=== PATIENT | male | born 1965 | race Caucasian/White ===

== ENCOUNTER 2019-05-13 06:32 | Day surgery (SDC) | payer BC, OTHER ==
[2019-05-11 15:16] VITALS: BMI 30.8
[~2019-05-13 06:32] MED LIST: LACTATED RINGERS 1,000 ML IV SCH; SODIUM CHLORIDE 0.9% 1,000 ML IV SCH
[2019-05-13 07:04] VITALS: TEMP 98.1
[2019-05-13 07:04] LABS: Glucose,Whole Blood 165 mg/dL (75-99)
[2019-05-13] MEDS ORDERED: MIDAZOLAM 2 MG/2 ML VIAL ONE (07:20)
[2019-05-13] MEDS ORDERED: PROPOFOL 10 MG/ML 20 ML VIAL IV ONE (07:20)
--- NOTE | 2019-05-13 08:37 | P.PCN ---
Preoperative Diagnosis: Diagnosis Episode of wide complex tachycardia documented on ICD interrogation cycle length in the mid 300s Known ischemic cardiomyopathy severe LV dysfunction History of ventricular fibrillation status post ablation several years back Noninvasive program stimulation under conscious sedation Sinus cycle length 724 ms, MS interval 144 ms, QRS 134 ms and QT 375 ms Ventricular extra stimulation was performed at 2 [address] trains of double extrastimuli Ventricular tachycardia was induced, sustained monomorphic @ 400/230/200 ms The VT cycle length was 264 ms Right bundle branch block with negatively oriented QRS complexes in leads 1 and aVL, slightly upright in lead 3 and aVF Antitachycardia pacing was successful in the first round Thereafter defibrillation level testing was performed since patient has a RIATA lead on advisory Defibrillation level testing in the total configuration was performed. A 20 J shock was unsuccessful. A 30 J shock successfully defibrillated the patient is sinus rhythm DFT was repeated in the anodal polarity This time a 20 J shock was successful in different with the patient High-voltage impedance 91 ohms and charge time 4 seconds No post shock noise Detections were appropriate no dropouts Impression Inducible fast ventricular tachycardia with double extrastimuli at 400/270/200 ms Right bundle, negative QRS is in leads 1 and aVL This wide complex tachycardia was quite different from the clinical ventricular tachycardia which is a cycle length of about 3 and 30 ms High DFT in the cathodal polarity DFT at 20 J in the anodal polarity Plan continue maximal heart failure therapy Consider VT ablation if he has recurrence of VT Patient's and underlying left bundle branch block morphology with a QRS width of 136 ms Will follow from a heart failure standpoint
[2019-05-13 08:40] VITALS: RESP 16
[2019-05-13 09:06] VITALS: BP 111/59; PULSE 87
== END 2019-05-13 09:30 | disposition home or self-care (01) ==
LOC: CATHEP 06:32
PROVIDERS: ATTEND Internal Medicine Clinical Cardiac Electrophysiology
DX: Z45.02 Encounter for adjustment and management of automatic implantable cardiac defibrillator (principal); I25.5 Ischemic cardiomyopathy; I45.2 Bifascicular block; Z72.0 Tobacco use; I47.2 Ventricular tachycardia; I25.10 Atherosclerotic heart disease of native coronary artery without angina pectoris; I11.0 Hypertensive heart disease with heart failure; I50.9 Heart failure, unspecified; I25.2 Old myocardial infarction; E78.5 Hyperlipidemia, unspecified; J45.909 Unspecified asthma, uncomplicated; K21.9 Gastro-esophageal reflux disease without esophagitis; Z79.02 Long term (current) use of antithrombotics/antiplatelets; Z79.82 Long term (current) use of aspirin; Z79.4 Long term (current) use of insulin; Z79.899 Other long term (current) drug therapy; Z88.5 Allergy status to narcotic agent; Z88.0 Allergy status to penicillin; Z88.8 Allergy status to other drugs, medicaments and biological substances
CPT/HCPCS: 93642; J2250; J2704

== ENCOUNTER 2022-02-05 12:00 | Observation (INO) | payer BC, OTHER ==
[2022-02-05] MEDS ORDERED: SODIUM CHLORIDE 0.9% 1,000 ML IV ONE (12:19)
[2022-02-05] MEDS ORDERED: HYDROmorphone 1 MG/ML 1 ML SYRINGE ONE (16:19)
[2022-02-05] MEDS ORDERED: HYDROmorphone 1 MG/ML 1 ML SYRINGE IVP PRN (16:30)
[2022-02-05] MEDS ORDERED: HEPARIN SODIUM 1,000 UN/ML (10ML VL) ONE (16:56)
[2022-02-05] MEDS ORDERED: fentaNYL (PF) 50 MCG/ML 2 ML AMP ONE (16:56)
[2022-02-05] MEDS ORDERED: VERAPAMIL 2.5 MG/ML 2 ML AMP ONE (16:57)
[2022-02-05] MEDS: fentaNYL (PF) 50 MCG/ML VIAL IV ONE ×2 (17:02→17:10)
[2022-02-05] MEDS ORDERED: LIDOCAINE 1% INJ 10MG/ML (30 ML VIAL-PF) SQ ONE (17:02)
[2022-02-05] MEDS: MIDAZOLAM 2 MG/2 ML VIAL IV ONE ×2 (17:02→17:10)
[2022-02-05] MEDS: HEPARIN SODIUM 1,000 UN/ML (10ML VL) IV ONE ×4 (17:03→17:37)
[2022-02-05] MEDS ORDERED: VERAPAMIL SYRINGE (5 MG/10 ML) INTRAARTER ONE (17:04)
[2022-02-05] MEDS ORDERED: IOPAMIDOL-370 125ML BTL INJ ONE ×2 (17:51)
[2022-02-05] MEDS ORDERED: ATORVASTATIN 80 MG TAB PO STA (18:05)
[2022-02-05] MEDS ORDERED: NITROGLYCERIN SL TABS 0.4 MG TAB SUBLINGUAL PRN (18:05)
[2022-02-05] MEDS ORDERED: ALPRAZolam 0.5 MG TAB PO PRN (18:05)
[2022-02-05] MEDS ORDERED: ASPIRIN 325 MG TAB PO STA (18:05)
[2022-02-05] MEDS ORDERED: ALPRAZolam 0.25 MG TAB PO PRN (18:05)
[2022-02-05] MEDS: SODIUM CHLORIDE 0.9% 1,000 ML in EMPTY BAG 1 BAG IV SCH (18:24)
[2022-02-05 18:25] LABS: Glucose,Whole Blood 122 mg/dL (70-110)
[2022-02-05] MEDS ORDERED: PANTOPRAZOLE 40 MG TABLET PO SCH (21:00)
[2022-02-05] MEDS: SACUBITRIL/VALSARTAN 24 MG-26 MG TABLET PO SCH (21:48)
[2022-02-05] MEDS ORDERED: MELATONIN 5 MG TABLET PO SCH (22:30)
[2022-02-06] MEDS: SODIUM CHLORIDE 0.9% 1,000 ML in EMPTY BAG 1 BAG IV SCH (04:17)
[2022-02-06 05:55] VITALS: TEMP 97.5
[2022-02-06 07:00] LABS: Glucose,Whole Blood 137 mg/dL (70-110)
[2022-02-06] MEDS ORDERED: HEPARIN SODIUM,PORCINE 2,500 UNIT in SODIUM CHLORIDE 0.9% 250 ML IRRIGATION PRN (07:00)
[2022-02-06] MEDS ORDERED: HEPARIN SODIUM,PORCINE 10,000 UNIT in SODIUM CHLORIDE 0.9% 1,000 ML IRRIGATION PRN (07:00)
[2022-02-06] MEDS ORDERED: carvediloL 12.5 MG TAB PO SCH (07:30)
[2022-02-06] MEDS ORDERED: ATROPINE SULFATE 0.1 MG/ML 10ML SYRINGE IV PRN (07:56)
[2022-02-06] MEDS ORDERED: NITROGLYCERIN SL TABS 0.4 MG TAB SUBLINGUAL PRN (07:56)
[2022-02-06] MEDS ORDERED: MAG HYDROX/AL HYDROX/SIMETH 30 ML CUP PO PRN (07:56)
[2022-02-06] MEDS ORDERED: ZOLPIDEM 5 MG TAB PO PRN (07:56)
[2022-02-06] MEDS ORDERED: RX INFO: IV CONTRAST WAS GIVEN 1 EACH MISC MISCELLANE PRN (07:56)
[2022-02-06] MEDS ORDERED: SODIUM CHLORIDE 0.9% 1,000 ML in EMPTY BAG 1 BAG IV SCH (08:00)
--- NOTE | 2022-02-06 08:07 | P.PRCINT ---
Percutaneous Coronary Int. - Percutaneous Coronary Intervention Percutaneous Coronary Intervention: PROCEDURES PERFORMED: Left coronary angiography, PTCA instent stenosis of LAD with a 3.5 NC balloon, IVUS INDICATION: Vfib, obstructive CAD DATE OF PROCEDURE: 02/05/2022 HISTORY: Patient is a pleasant 56-year-old male with history CAD with previous PCI of the LAD as well as RCA as well as ischemic cardiomyopathy and DVT. Patient had previous LAD stenting and then had acute stent thrombosis requiring second stenting and has been on aspirin and Plavix since that time. He had an episode of V. fib treated with AICD and therefore coronary angiography was recommended and performed at [facility] which showed an obstructive in-stent LAD 80% stenosis. Therefore intervention was recommended. CONSENT:I have discussed the risks, benefits and alternative therapies for the above-mentioned procedure and for both sedation/analgesia as well as necessary blood product administration, if indicated, as they pertain to this patient. The patient has indicated understanding and acceptance of the risks and procedures discussed. PROCEDURE: After the risks, benefits and alternatives of the above mentioned procedure explained in detail with the patient, informed consent was obtained. Patient was taken to the catheterization lab and prepped and draped in usual fashion. A right radial sheath had already been placed. A 6-Irish EBU 3.5 guide was easily engage the left main. Heparin was given. A 0.014 BMW wire was advanced into the distal LAD. With the help of a Guideliner, IVUS was able to be performed which showed obstructive 80% stenosis of the LAD stent as well as diffuse heavily calcified or proximal as well as more distal 30-40% stenosis. Given previous 2 layers of stent and previous stent thrombosis and mechanism of action pain in-stent stenosis, decision was made to perform balloon angioplasty only. Initially balloon angioplasty was performed with a 3.0 x 12 mm noncompliant balloon and then with a 3.5 x 12 mm noncompliant balloon. Repeat IVUS showed good stent apposition with no dissection and 10% stenosis. The wire was pulled and final angiograms were performed. Preintervention there was 80% stenosis with ANGELINA 3 flow and postintervention there was 10% stenosis with ANGELINA 3 flow. The right radial sheath was removed and a TR band was placed with hemostasis achieved. The patient tolerated the procedure well. Patient was transported back to the post catheterization holding area in stable condition. Conscious Sedation: Patient was monitored under the direct supervision of sheila of eugeniaelf for conscious sedation using Versed and fentanyl for a total duration of 56 minutes HEMODYNAMICS: Ao: 137/78 SELECTIVE CORONARY ARTERIOGRAPHY: LEFT MAIN: The left main is a large caliber vessel which bifurcates into the LAD and circumflex. There is no significant stenosis. LEFT ANTERIOR DESCENDING CORONARY ARTERY: LAD is a large caliber vessel which wraps around to the apex. There is diffuse calcified proximal 20-30% stenosis, mid LAD stent with 80% in-stent stenosis, distal to the LAD stents diffuse 30- 40% stenosis. The diagonal 1 branch has a 90% stenosis however is smaller caliber. LEFT CIRCUMFLEX CORONARY ARTERY: Left circumflex is a moderate caliber vessel with mild luminal irregularities. RIGHT CORONARY ARTERY: The RCA was not imaged. See diagnostic report. Known to have patent RCA stent with mild 20-30% stenosis and ostial PLV 50% stenosis. FINAL IMPRESSION: 1. CAD as described above including 80% mid LAD in-stent stenosis, diagonal 1 90% stenosis, RCA 20-30% stenosis and ostial PLV 50% stenosis. 2. S/p PTCA instent stenosis of LAD with a 3.5 NC balloon PLAN: 1. Aggressive risk factor modification per most recent ACC/AHA guidelines. 2. Continue dual antiplatelets with aspirin and Plavix for 12 months. 3. Recommend medical therapy of diagonal 1 branch given his small caliber with previous stent thrombosis of the LAD where the diagonal ostium comes off.
[2022-02-06 08:08] VITALS: BP 138/94; PULSE 55; RESP 18
--- NOTE | 2022-02-06 08:10 | P.DS ---
Providers Date of admission: 02/05/22 12:13 Attending physician: Derick Graff DO Consults: 02/06/22 07:56 Consult Physician Routine Consulting Provider: [facility] Consult Reason/Comments: Post Interventional patient Do you want consulting provider notified?: Already Contacted Primary care physician: [facility] Course: Patient is a pleasant 56-year-old male with history of CAD as well as ischemic cardiomyopathy status post AICD. He had a V. fib episode terminated with AICD and therefore coronary angiography was recommended. Patient had diagnostic heart catheterization at [facility] which showed obstructive 80% mid LAD in-stent stenosis as well as diagonal 190% stenosis. Recommended for medical therapy of diagonal 1 branch given this was area of previous stent thrombosis and recommended for intervention of the mid LAD stent. He was transferred to [facility] and underwent balloon angioplasty of the mid LAD with good result. Patient seen and examined 02/06 without any chest pain or pressure and radial site with no hematoma and 2 out of 4 pulses. Patient stable for discharge home on 02/06 with outpatient follow-up with Dr. Vaughan in 1 [place]. Plan - Discharge Summary Discharge Rx Participant: No New Discharge Prescriptions: No Action Clopidogrel [Plavix] 75 mg PO DAILY Pantoprazole [Protonix] 40 mg PO HS sitaGLIPtin PHOS/metFORMIN HCL [Janumet 50-1,000 mg Tablet] 1 tab PO BID Insulin Glargine,Hum.rec.anlog [Toujeo Solostar] 45 units SQ DAILY carvediloL [Coreg*] 25 mg PO BID-W/MEALS Atorvastatin [Lipitor] 40 mg PO DAILY Aspirin 162.5 mg PO BID Sacubitril/Valsartan [Entresto 24 mg-26 mg Tablet] 1 tab PO BID Discharge Medication List Clopidogrel [Plavix] 75 mg PO DAILY 07/06/14 [History] Pantoprazole [Protonix] 40 mg PO HS 04/30/15 [History] Aspirin 162.5 mg PO BID 05/11/19 [History] Atorvastatin [Lipitor] 40 mg PO DAILY 05/11/19 [History] Insulin Glargine,Hum.rec.anlog [Toujeo Solostar] 45 units SQ DAILY 05/11/19 [History] Sacubitril/Valsartan [Entresto 24 mg-26 mg Tablet] 1 tab PO BID 05/11/19 [History] carvediloL [Coreg*] 25 mg PO BID-W/MEALS 05/11/19 [History] sitaGLIPtin PHOS/metFORMIN HCL [Janumet 50-1,000 mg Tablet] 1 tab PO BID 05/11/19 [History] Follow up Appointment(s)/Referral(s): Derik Vaughan MD [STAFF PHYSICIAN] - 1 Week
[2022-02-06] MEDS: SACUBITRIL/VALSARTAN 24 MG-26 MG TABLET PO SCH (08:31)
[2022-02-06] MEDS ORDERED: ASPIRIN 81 MG PO SCH (09:00)
[2022-02-06] MEDS ORDERED: INSULIN DETEMIR (LEVEMIR) 100 UNIT/ML SYR SQ SCH (09:00)
[2022-02-06] MEDS ORDERED: ATORVASTATIN 40 MG TAB PO SCH (09:00)
[2022-02-06] MEDS ORDERED: CLOPIDOGREL 75 MG TAB PO SCH (09:00)
== END 2022-02-06 09:30 | disposition home or self-care (01) ==
LOC: 6NMEDSUR 12:13
PROVIDERS: ADMIT Internal Medicine; ATTEND Internal Medicine
DX: T82.855A Stenosis of coronary artery stent, initial encounter (principal); I25.10 Atherosclerotic heart disease of native coronary artery without angina pectoris; I25.5 Ischemic cardiomyopathy; Z95.810 Presence of automatic (implantable) cardiac defibrillator; Y83.2 Surgical operation with anastomosis, bypass or graft as the cause of abnormal reaction of the patient, or of later complication, without mention of misadventure at the time of the procedure; Y71.1 Therapeutic (nonsurgical) and rehabilitative cardiovascular devices associated with adverse incidents
CPT/HCPCS: 96360; 96361 ×2; 92978; 92920; G0379; G0378 ×2; C1769 ×3; C1887 ×2; C1894; C1725 ×2; C1753; J2250; J2001; J1644; J1170; Q9967

== ENCOUNTER 2022-02-10 05:36 | Inpatient (IN) | payer BC, MEDICARE ==
[2022-02-10] MEDS ORDERED: SODIUM CHLORIDE 0.9% 1,000 ML IV STA (05:45)
--- NOTE | 2022-02-10 05:52 | ED ---
Arrhythmia/Palpitations HPI - General Stated Complaint: Arrhythmia Time Seen by Provider: 02/10/22 05:44 Source: RN notes reviewed, old records reviewed Limitations: no limitations - History of Present Illness Initial Comments: This is a 56-year-old male to the emergency department for evaluation patient presents today for dizziness discharge of his defibrillator. Patient states he did go to a friend's house last night for Halloween hanging out noted at those little more activity than for himself normal. Patient samantha did have defibrillator discharges he was going to the bathroom he did not pass out. No chest pain before did feel lightheaded and dizzy. Patient has had his May discharged before and he has had this placed for about 15 years. Patient does have severe cardiomyopathy ischemic MD Complaint: irregular heart beat (Arrhythmia, history of ventricular tachycardia) -: minutes(s) Context: occurred during exertion, awoke with symptoms Arrhythmia History: pacemaker (Patient's defibrillator did discharge) Associated Symptoms: chest pain, shortness of breath, anxiety, diaphoresis Treatments Prior to Arrival: beta-ravi (Patient does take a beta ravi at baseline) - Related Data Home Medications Medication Instructions Recorded Confirmed Clopidogrel [Plavix] 75 mg PO DAILY 07/06/14 02/10/22 Pantoprazole [Protonix] 40 mg PO HS 04/30/15 02/10/22 Aspirin 162.5 mg PO BID 05/11/19 02/10/22 Atorvastatin [Lipitor] 40 mg PO DAILY 05/11/19 02/10/22 Insulin Glargine,Hum.rec.anlog 45 units SQ DAILY 05/11/19 02/10/22 [Toutanner Murphy] Sacubitril/Valsartan [Entresto 24 1 tab PO BID 05/11/19 02/10/22 mg-26 mg Tablet] sitaGLIPtin PHOS/metFORMIN HCL 1 tab PO BID 05/11/19 02/10/22 [Janumet 50-1,000 mg Tablet] ALPRAZolam [Xanax] 0.5 mg PO HS 02/10/22 02/10/22 Furosemide [Lasix] 20 mg PO DAILY PRN 02/10/22 02/10/22 carvediloL 25 mg PO BID-W/MEALS 02/10/22 02/10/22 Allergies Allergy/AdvReac Type Severity Reaction Status Date / Time amoxicillin Allergy Anaphylaxis Verified 02/10/22 11:57 lisinopril Allergy Anaphylaxis Verified 02/10/22 11:57 Penicillins Allergy Anaphylaxis Verified 02/10/22 11:57 Review of Systems ROS Statement: Those systems with pertinent positive or pertinent negative responses have been documented in the HPI. ROS Other: All systems not noted in ROS Statement are negative. Past Medical History Past Medical History: Asthma, Coronary Artery Disease (CAD), Diabetes Mellitus, GERD/Reflux, GI Bleed, Hyperlipidemia, Hypertension, Myocardial Infarction ([place]) Additional Past Medical History / Comment(s): see Dr Vaughan's H&P,ASTHMA CHILD, [place] X2, CAD status post PCI 2 ischemic cardiopathy status post AICD, pt stated "esophageal stricture status post esophageal dilatation resulted from acid reflux and scar tissue" Last Myocardial Infarction Date:: 2007 History of Any Multi-Drug Resistant Organisms: None Reported Past Surgical History: AICD, Heart Catheterization With Stent, Orthopedic Surgery Additional Past Surgical History / Comment(s): STENT X6, KNEE ARTHROSCOPY/CARDIAC DEFIBRILLATOR INSERTED 2008-lt chest [facility] Past Anesthesia/Blood Transfusion Reactions: No Reported Reaction Additional Past Anesthesia/Blood Transfusion Reaction / Comment(s): no hx blood transfusion Date of Last Stent Placement:: 05-02-2015 Type of Cardiac Device: AICD Device Placement Date:: 2007 Past Psychological History: No Psychological Hx Reported Smoking Status: Never smoker Past Alcohol Use History: None Reported Additional Past Alcohol Use History / Comment(s): quit smoking 2013, started at age 17,<1 ppd Past Drug Use History: None Reported - Past Family History Mother Family Medical History: Coronary Artery Disease (CAD), Hyperlipidemia, Hypertension Father Family Medical History: COPD, Coronary Artery Disease (CAD) Brother(s) Family Medical History: No Reported History Sister(s) Family Medical History: No Reported History Daughter(s) Family Medical History: No Reported History Son(s) Family Medical History: No Reported History General Exam General appearance: alert, in no apparent distress, anxious Head exam: Present: atraumatic, normocephalic, normal inspection Eye exam: Present: normal appearance, PERRL, EOMI. Absent: scleral icterus, conjunctival injection, periorbital swelling ENT exam: Present: normal exam, mucous membranes moist Neck exam: Present: normal inspection. Absent: tenderness, meningismus, lymphadenopathy Respiratory exam: Present: normal lung sounds bilaterally. Absent: respiratory distress, wheezes, rales, rhonchi, stridor Cardiovascular Exam: Present: regular rate, normal rhythm, normal heart sounds. Absent: systolic murmur, diastolic murmur, rubs, gallop, clicks GI/Abdominal exam: Present: soft, normal bowel sounds. Absent: distended, tenderness, guarding, rebound, rigid Extremities exam: Present: normal inspection, full ROM, normal capillary refill. Absent: tenderness, pedal edema, joint swelling, calf tenderness Back exam: Present: normal inspection Neurological exam: Present: alert, oriented X3, CN II-XII intact Psychiatric exam: Present: normal affect, normal mood Skin exam: Present: warm, dry, intact, normal color. Absent: rash Course Vital Signs 02/10/22 02/10/22 02/10/22 05:51 06:16 06:46 Temperature 98.5 F Pulse Rate 88 86 81 Pulse Rate [ Filing Or Registry Clerk ] Respiratory 15 18 Rate Blood Pressure 155/106 156/97 151/88 O2 Sat by Pulse 98 99 Oximetry 02/10/22 06:48 Temperature Pulse Rate Pulse Rate [ 86 Filing Or Registry Clerk ] Respiratory Rate Blood Pressure O2 Sat by Pulse Oximetry - Reevaluation(s) Reevaluation #1: 02/10/22 Medical records reviewed Reevaluation #2: 02/10/22 No recurrent this charge here in the emergency department Reevaluation #3: 02/10/22 22:27 Patient informed of results including electrolyte abnormalities. Questions answered - Consultations Consultation #1: Spoke with [facility] for brandyn for admission EKG Findings - EKG Comments: EKG Findings:: EKG is sinus 83 WA 173 QRS 151 QTc 417 Medical Decision Making - Medical Decision Making 56 male for a bladder discharge likely ventricular tachycardia versus ventricular fibrillation. Patient did not pass out prior defibrillator firing. He did feel lightheaded and dizzy no chest pain shortness breath or diaphoresis. Patient had symptoms placement 2 days ago - Lab Data Result diagrams: 02/10/22 05:57 02/10/22 12:21 Lab Results 02/10/22 02/10/22 02/10/22 Range/Units 05:57 05:57 05:57 WBC 9.3 (3.8-10.6) k/uL RBC 4.51 (4.30-5.90) m/uL Hgb 13.3 (13.0-17.5) gm/dL Hct 40.3 (39.0-53.0) % MCV 89.3 (80.0-100.0) fL MCH 29.5 (25.0-35.0) pg MCHC 33.0 (31.0-37.0) g/dL RDW 14.1 (11.5-15.5) % Plt Count 236 (150-450) k/uL MPV 9.6 Neutrophils % 67 % Lymphocytes % 19 % Monocytes % 6 % Eosinophils % 7 % Basophils % 1 % Neutrophils # 6.3 (1.3-7.7) k/uL Lymphocytes # 1.7 (1.0-4.8) k/uL Monocytes # 0.5 (0-1.0) k/uL Eosinophils # 0.6 (0-0.7) k/uL Basophils # 0.1 (0-0.2) k/uL Hypochromasia Slight PT 11.4 (9.0-12.0) sec INR 1.1 (<1.2) APTT 25.5 (22.0-30.0) sec Sodium 137 (137-145) mmol/L Potassium 3.8 (3.5-5.1) mmol/L Chloride 100 (98-107) mmol/L Carbon Dioxide 22 (22-30) mmol/L Anion Gap 15 mmol/L BUN 14 (9-20) mg/dL Creatinine 0.93 (0.66-1.25) mg/dL Est GFR (CKD-EPI)AfAm >90 (>60 ml/min/1.73 sqM) Est GFR (CKD-EPI)NonAf >90 (>60 ml/min/1.73 sqM) Glucose 136 H (74-99) mg/dL Plasma Lactic Acid Ruslan (0.7-2.0) mmol/L Calcium 8.7 (8.4-10.2) mg/dL Phosphorus 3.8 (2.5-4.5) mg/dL Magnesium 1.5 L (1.6-2.3) mg/dL Total Bilirubin 0.6 (0.2-1.3) mg/dL AST 35 (17-59) U/L ALT 32 (4-49) U/L Alkaline Phosphatase 78 (38-126) U/L Troponin I (0.000-0.034) ng/mL NT-Pro-B Natriuret Pep pg/mL Total Protein 6.5 (6.3-8.2) g/dL Albumin 4.1 (3.5-5.0) g/dL 02/10/22 02/10/22 02/10/22 Range/Units 05:57 05:57 05:57 WBC (3.8-10.6) k/uL RBC (4.30-5.90) m/uL Hgb (13.0-17.5) gm/dL Hct (39.0-53.0) % MCV (80.0-100.0) fL MCH (25.0-35.0) pg MCHC (31.0-37.0) g/dL RDW (11.5-15.5) % Plt Count (150-450) k/uL MPV Neutrophils % % Lymphocytes % % Monocytes % % Eosinophils % % Basophils % % Neutrophils # (1.3-7.7) k/uL Lymphocytes # (1.0-4.8) k/uL Monocytes # (0-1.0) k/uL Eosinophils # (0-0.7) k/uL Basophils # (0-0.2) k/uL Hypochromasia PT (9.0-12.0) sec INR (<1.2) APTT (22.0-30.0) sec Sodium (137-145) mmol/L Potassium (3.5-5.1) mmol/L Chloride (98-107) mmol/L Carbon Dioxide (22-30) mmol/L Anion Gap mmol/L BUN (9-20) mg/dL Creatinine (0.66-1.25) mg/dL Est GFR (CKD-EPI)AfAm (>60 ml/min/1.73 sqM) Est GFR (CKD-EPI)NonAf (>60 ml/min/1.73 sqM) Glucose (74-99) mg/dL Plasma Lactic Acid Ruslan 3.6 H* (0.7-2.0) mmol/L Calcium (8.4-10.2) mg/dL Phosphorus (2.5-4.5) mg/dL Magnesium (1.6-2.3) mg/dL Total Bilirubin (0.2-1.3) mg/dL AST (17-59) U/L ALT (4-49) U/L Alkaline Phosphatase (38-126) U/L Troponin I 0.058 H* (0.000-0.034) ng/mL NT-Pro-B Natriuret Pep 459 pg/mL Total Protein (6.3-8.2) g/dL Albumin (3.5-5.0) g/dL Critical Care Time Critical Care Time: Yes Total Critical Care Time: 31 Disposition Clinical Impression: Cardiomyopathy, Defibrillator discharge, Arrhythmia Disposition: ADMITTED IP TO [facility] Condition: Serious Is patient prescribed a controlled substance at d/c from ED?: No Time of Disposition: 06:45
[2022-02-10 06:17] LABS: Basophils # (A) 0.1 k/uL (0-0.2); Basophils % (A) 1 %; Eosinophils # (A) 0.6 k/uL (0-0.7); Eosinophils % (A) 7 %; HCT 40.3 % (39.0-53.0); HGB 13.3 gm/dL (13.0-17.5); Hypochromasia Slight; Lymphocytes # (A) 1.7 k/uL (1.0-4.8); Lymphocytes % (A) 19 %; MCH 29.5 pg (25.0-35.0); MCV 89.3 fL (80.0-100.0); Mean Platelet Volume 9.6; Monocytes # (A) 0.5 k/uL (0-1.0); Monocytes % (A) 6 %; Neutrophils # (A) 6.3 k/uL (1.3-7.7); Neutrophils % (A) 67 %; Platelet Count 236 k/uL (150-450); RBC 4.51 m/uL (4.30-5.90); RDW 14.1 % (11.5-15.5); WBC 9.3 k/uL (3.8-10.6)
[2022-02-10] MEDS ORDERED: ONDANSETRON 4 MG/2 ML VIAL IVP PRN (06:28)
[2022-02-10] MEDS ORDERED: NALOXONE 0.4 MG/ML 1 ML VIAL IV PRN (06:28)
[2022-02-10] MEDS ORDERED: MORPHINE SULFATE 4 MG/ML SYRINGE IV PRN (06:28)
[2022-02-10 06:29] LABS: ALT 32 U/L (4-49); AST 35 U/L (17-59); African American GFR (CKD) >90 (>60 ml/min/1.73 sqM); Albumin 4.1 g/dL (3.5-5.0); Alkaline Phosphatase 78 U/L (38-126); Anion Gap 15 mmol/L; Blood Urea Nitrogen 14 mg/dL (9-20); Calcium 8.7 mg/dL (8.4-10.2); Carbon Dioxide 22 mmol/L (22-30); Chloride 100 mmol/L (98-107); Glucose 136 mg/dL (74-99); Magnesium 1.5 mg/dL (1.6-2.3); Non-African American GFR(CKD) >90 (>60 ml/min/1.73 sqM); Phosphorus 3.8 mg/dL (2.5-4.5); Potassium 3.8 mmol/L (3.5-5.1); Sodium 137 mmol/L (137-145); Total Bilirubin 0.6 mg/dL (0.2-1.3); Total Protein 6.5 g/dL (6.3-8.2)
[2022-02-10 06:49] LABS: INR 1.1 (<1.2); Partial Thromboplastin Time 25.5 sec (22.0-30.0); Prothrombin Time 11.4 sec (9.0-12.0)
[2022-02-10] MEDS ORDERED: MAGNESIUM OXIDE 400 MG TAB PO STA ×2 (06:51)
[2022-02-10] MEDS ORDERED: POTASSIUM BICARBONATE/CIT AC 20 MEQ TABLET.EFF PO ONE (06:51)
[2022-02-10] MEDS ORDERED: POTASSIUM CHLORIDE ER 20 MEQ TAB.ER PO STA (06:51)
[2022-02-10] MEDS ORDERED: SODIUM CHLORIDE 0.9% 1,000 ML IV ONE (06:52)
[2022-02-10] MEDS: MAGNESIUM SULFATE-D5W PMX 1 GM in DEXTROSE/WATER 1 100ML.BAG IVPB SCH ×2 (11:16→11:18)
[2022-02-10 11:54] LABS: Glucose,Whole Blood 123 mg/dL (70-110)
[2022-02-10 13:10] LABS: Magnesium 1.8 mg/dL (1.6-2.3); Potassium 4.5 mmol/L (3.5-5.1)
[2022-02-10] MEDS ORDERED: FUROSEMIDE 20 MG TAB PO PRN (16:12)
--- NOTE | 2022-02-10 16:23 | P.HPIM ---
History of Present Illness H&P Date: 02/10/22 Chief Complaint: Defibrillator discharge 56-year-old male with history of CAD as well as ischemic cardiomyopathy status post AICD. Patient reports he had heart catheterization completed about a week ago, after he had a V. fib episode terminated with AICD. Patient had diagnostic heart catheterization at [facility] which showed obstructive 80% mid LAD in-stent stenosis as well as diagonal 190% stenosis. Recommended for medical therapy of diagonal 1 branch given this was area of previous stent thrombosis and recommended for intervention of the mid LAD stent. He was transferred to [facility] and underwent balloon angioplasty of the mid LAD with good result. -- patient reports he woke up in the middle of the night to go to the bathroom at which time he didn't feel right; he went to the kitchen to get water and felt his defibrillator go off in the kitchen; patient denies any chest pain or palpitations at this time; patient decided to further evaluation Review of Systems REVIEW OF SYSTEMS: CONSTITUTIONAL: No fever, no malaise, no fatigue. HEENT: No recent visual problems or hearing problems. Denied any sore throat. CARDIOVASCULAR: No chest pain, orthopnea, PND, no palpitations, no syncope. PULMONARY: No shortness of breath, no cough, no hemoptysis. GASTROINTESTINAL: No diarrhea, no nausea, no vomiting, no abdominal pain. NEUROLOGICAL: No headaches, no weakness, no numbness. HEMATOLOGICAL: Denies any bleeding or petechiae. GENITOURINARY: Denies any burning micturition, frequency, or urgency. MUSCULOSKELETAL/RHEUMATOLOGICAL: Denies any joint pain, swelling, or any muscle pain. ENDOCRINE: Denies any polyuria or polydipsia. The rest of the 14-point review of systems is negative. Past Medical History Past Medical History: Asthma, Coronary Artery Disease (CAD), Diabetes Mellitus, GERD/Reflux, GI Bleed, Hyperlipidemia, Hypertension, Myocardial Infarction ([place]) Additional Past Medical History / Comment(s): see Dr Vaughan's H&P,ASTHMA CHILD, [place] X2, CAD status post PCI 2 ischemic cardiopathy status post AICD, pt stated "esophageal stricture status post esophageal dilatation resulted from ac id reflux and scar tissue" Last Myocardial Infarction Date:: 2007 History of Any Multi-Drug Resistant Organisms: None Reported Past Surgical History: AICD, Heart Catheterization With Stent, Orthopedic Surgery Additional Past Surgical History / Comment(s): STENT X6, KNEE ARTHROSCOPY/CARDIAC DEFIBRILLATOR INSERTED 2007-lt chest [facility] Past Anesthesia/Blood Transfusion Reactions: No Reported Reaction Additional Past Anesthesia/Blood Transfusion Reaction / Comment(s): no hx blood transfusion Date of Last Stent Placement:: 05-02-2015 Type of Cardiac Device: AICD Device Placement Date:: 2007 Past Psychological History: No Psychological Hx Reported Smoking Status: Former smoker Past Alcohol Use History: None Reported Additional Past Alcohol Use History / Comment(s): quit smoking 2013, started at age 17,<1 ppd Past Drug Use History: None Reported - Past Family History Mother Family Medical History: Coronary Artery Disease (CAD), Hyperlipidemia, Hypertension Father Family Medical History: COPD, Coronary Artery Disease (CAD) Brother(s) Family Medical History: No Reported History Sister(s) Family Medical History: No Reported History Daughter(s) Family Medical History: No Reported History Son(s) Family Medical History: No Reported History Medications and Allergies Home Medications Medication Instructions Recorded Confirmed Type Clopidogrel [Plavix] 75 mg PO DAILY 07/06/14 02/10/22 History Pantoprazole [Protonix] 40 mg PO HS 04/30/15 02/10/22 History Aspirin 162.5 mg PO BID 05/11/19 02/10/22 History Atorvastatin [Lipitor] 40 mg PO DAILY 05/11/19 02/10/22 History Insulin Glargine,Hum.rec.anlog 45 units SQ DAILY 05/11/19 02/10/22 History [Toujeo Solostar] Sacubitril/Valsartan [Entresto 24 1 tab PO BID 05/11/19 02/10/22 History mg-26 mg Tablet] sitaGLIPtin PHOS/metFORMIN HCL 1 tab PO BID 05/11/19 02/10/22 History [Janumet 50-1,000 mg Tablet] ALPRAZolam [Xanax] 0.5 mg PO HS 02/10/22 02/10/22 History Furosemide [Lasix] 20 mg PO DAILY PRN 02/10/22 02/10/22 History carvediloL 25 mg PO BID-W/MEALS 02/10/22 02/10/22 History Allergies Allergy/AdvReac Type Severity Reaction Status Date / Time amoxicillin Allergy Anaphylaxis Verified 02/10/22 11:57 lisinopril Allergy Anaphylaxis Verified 02/10/22 11:57 Penicillins Allergy Anaphylaxis Verified 02/10/22 11:57 Physical Exam Vitals: Vital Signs Temp Pulse Pulse Resp BP BP Pulse Ox 02/10/22 08:00 98.3 F 83 16 156/98 99 02/10/22 06:48 86 02/10/22 06:46 81 18 151/88 99 02/10/22 06:16 86 156/97 02/10/22 05:51 98.5 F 88 15 155/106 98 Intake and Output 02/09/22 02/10/22 02/10/22 22:59 06:59 14:59 Other: Voiding Method Toilet Weight 106.594 kg 106.594 kg PHYSICAL EXAMINATION: GENERAL: The patient is alert and oriented x3, not in any acute distress. Well developed, well nourished. HEENT: Pupils are round and equally reacting to light. EOMI. No scleral icterus. No conjunctival pallor. Normocephalic, atraumatic. No pharyngeal erythema. No thyromegaly. CARDIOVASCULAR: S1 and S2 present. No murmurs, rubs, or gallops. PULMONARY: Chest is clear to auscultation, no wheezing or crackles. ABDOMEN: Soft, nontender, nondistended, normoactive bowel sounds. No palpable organomegaly. MUSCULOSKELETAL: No joint swelling or deformity. EXTREMITIES: No cyanosis, clubbing, or pedal edema. NEUROLOGICAL: Gross neurological examination did not reveal any focal deficits. SKIN: No rashes. Results CBC & Chem 7: 02/10/22 05:57 02/10/22 12:21 Labs: Abnormal Lab Results - Last 24 Hours (Table) 02/10/22 02/10/22 02/10/22 Range/Units 05:57 05:57 05:57 Glucose 136 H (74-99) mg/dL Plasma Lactic Acid Ruslan 3.6 H* (0.7-2.0) mmol/L Magnesium 1.5 L (1.6-2.3) mg/dL Troponin I 0.058 H* (0.000-0.034) ng/mL 02/10/22 02/10/22 Range/Units 09:09 09:09 Glucose (74-99) mg/dL Plasma Lactic Acid Ruslan 2.2 H* (0.7-2.0) mmol/L Magnesium (1.6-2.3) mg/dL Troponin I 0.065 H* (0.000-0.034) ng/mL Assessment and Plan Assessment: 1. Arrhythmia/defibrillator discharge - Patient is admitted to telemetry; we will monitor EKG and troponin - Cardiology is consulted for further evaluation 2. Coronary artery disease with recent heart catheterization with balloon angioplasty of mid LAD; patient remains on dual antiplatelet therapy with aspirin and Plavix; continue with statins and beta blockers therapy 3. Hypertension; Coreg 25 mg twice a day; Entresto 2426 milligrams 1 tablet twice a day 4. Hyperlipidemia; Lipitor 40 mg by mouth daily at bedtime 5. Diabetes mellitus controlled with insulin; patient takes insulin glargine 45 units subcu daily; Janumet 50thousand milligrams twice a day 6. Asthma; not in exacerbation; currently not on any inhaler therapy 7. Gastroesophageal reflux disease; Protonix 40 mg daily DVT prophylaxis; SCDs CODE STATUS; full code
[2022-02-10 16:25] LABS: Glucose,Whole Blood 224 mg/dL (70-110)
[2022-02-10] MEDS ORDERED: DEXTROSE 50% SYRINGE 50 ML IVP PRN ×2 (16:35)
[2022-02-10] MEDS: INSULIN ASPART (NovoLOG) 100 UNIT/ML VIAL SQ SCH ×2 (16:56→21:01)
[2022-02-10] MEDS: CLOPIDOGREL 75 MG TAB PO SCH (16:56)
[2022-02-10] MEDS: carvediloL 12.5 MG TAB PO SCH (16:56)
[2022-02-10 20:39] LABS: Glucose,Whole Blood 121 mg/dL (70-110)
[2022-02-10] MEDS: PANTOPRAZOLE 40 MG TABLET PO SCH (21:01)
[2022-02-10] MEDS: SACUBITRIL/VALSARTAN 24 MG-26 MG TABLET PO SCH (21:01)
[2022-02-10] MEDS: ASPIRIN 81 MG PO SCH (21:01)
[2022-02-10] MEDS: ALPRAZolam 0.5 MG TAB PO SCH (21:01)
[2022-02-10] MEDS: metFORMIN 500 MG TAB PO SCH (21:01)
[2022-02-11] MEDS: carvediloL 12.5 MG TAB PO SCH ×2 (06:33→16:58)
[2022-02-11 06:34] LABS: Glucose,Whole Blood 109 mg/dL (70-110)
[2022-02-11] MEDS: INSULIN ASPART (NovoLOG) 100 UNIT/ML VIAL SQ SCH ×4 (06:35→21:31)
[2022-02-11 08:02] LABS: Basophils # (A) 0.1 k/uL (0-0.2); Basophils % (A) 1 %; Eosinophils # (A) 0.6 k/uL (0-0.7); Eosinophils % (A) 7 %; HGB 13.3 gm/dL (13.0-17.5); Hypochromasia Moderate; Lymphocytes # (A) 1.6 k/uL (1.0-4.8); Lymphocytes % (A) 20 %; MCHC 31.6 g/dL (31.0-37.0); MCV 91.6 fL (80.0-100.0); Mean Platelet Volume 9.6; Monocytes # (A) 0.4 k/uL (0-1.0); Monocytes % (A) 5 %; Neutrophils # (A) 5.1 k/uL (1.3-7.7); Neutrophils % (A) 65 %; Platelet Count 200 k/uL (150-450); RBC 4.58 m/uL (4.30-5.90); RDW 14.1 % (11.5-15.5); WBC 7.8 k/uL (3.8-10.6)
[2022-02-11 08:19] LABS: African American GFR (CKD) >90 (>60 ml/min/1.73 sqM); Anion Gap 13 mmol/L; Blood Urea Nitrogen 11 mg/dL (9-20); Calcium 8.5 mg/dL (8.4-10.2); Carbon Dioxide 22 mmol/L (22-30); Chloride 103 mmol/L (98-107); Glucose 119 mg/dL (74-99); Non-African American GFR(CKD) >90 (>60 ml/min/1.73 sqM); Potassium 4.4 mmol/L (3.5-5.1); Sodium 138 mmol/L (137-145)
[2022-02-11 08:59] VITALS: TEMP 97.8
[2022-02-11] MEDS: metFORMIN 500 MG TAB PO SCH ×2 (09:00→21:31)
[2022-02-11] MEDS: ASPIRIN 81 MG PO SCH ×2 (09:01→21:31)
[2022-02-11] MEDS: ATORVASTATIN 40 MG TAB PO SCH (09:01)
[2022-02-11] MEDS: INSULIN DETEMIR (LEVEMIR) 100 UNIT/ML SYR SQ SCH (09:01)
[2022-02-11] MEDS: CLOPIDOGREL 75 MG TAB PO SCH (09:01)
[2022-02-11] MEDS: LINAGLIPTIN 5 MG TABLET PO SCH (09:01)
[2022-02-11] MEDS: SACUBITRIL/VALSARTAN 24 MG-26 MG TABLET PO SCH ×2 (09:01→21:31)
[2022-02-11] MEDS ORDERED: ATORVASTATIN 40 MG TAB PO STA (09:05)
[2022-02-11] MEDS ORDERED: ALPRAZolam 0.25 MG TAB PO PRN (09:05)
[2022-02-11] MEDS ORDERED: ALPRAZolam 0.5 MG TAB PO PRN (09:05)
[2022-02-11] MEDS ORDERED: NITROGLYCERIN SL TABS 0.4 MG TAB SUBLINGUAL PRN (09:05)
[2022-02-11] MEDS ORDERED: ASPIRIN 81 MG PO STA (09:05)
[2022-02-11] MEDS: SODIUM CHLORIDE 0.9% 1,000 ML in EMPTY BAG 1 BAG IV SCH ×2 (09:20→16:59)
--- NOTE | 2022-02-11 10:40 | P.CRDCN ---
History of Present Illness Consult date: 02/11/22 History of present illness: HISTORY OF PRESENT ILLNESS: This is a 56-year-old male with a past medical history significant for coronary artery disease with previous stenting of the LAD, ischemic cardiomyopathy with AICD implantation, diabetes, and hyperlipidemia. Patient follows in the office with Dr. Vaughan. We have been asked to see the patient in consultation for defibrillator discharge. Patient was recently hospitalized secondary to his defibrillator going off. Patient was found to have ventricular fibrillation. He underwent cardiac catheterization with balloon angioplasty to the LAD. Patient was also found to have 90% stenosis of diagonal 1 branch which was treated medically. Patient was discharged home in stable condition. Patient presented back to the hospital yesterday after he felt his defibrillator fire yesterday morning. Patient states he was getting out of bed around 4:30 in the morning and was walking to the bathroom to urinate. He states that he felt off but was not quite sure what was going on. After he urinated he was standing at the sink to wash his hands and felt a big "thump" in his chest. EMS was called and he was brought to the hospital. Interrogation of his device reveals an episode of ventricular tachycardia yesterday with defibrillator discharge. * EKG reveals sinus mechanism with left bundle branch block. Left axis deviation. * Laboratory data: WBC 7.8. Hemoglobin 13.3. Platelet count 200. Sodium 138. Potassium 4.4. BUN 11. Creatinine 0.86. * Current home cardiac medications include aspirin 162.5 mg twice a day, Lipitor 40 mg daily, Plavix 75 mg daily, Lasix 20 mg daily as needed, carvedilol 25 mg twice a day, and Entresto 24-26mg BID REVIEW OF SYSTEMS: At the time of my exam: CONSTITUTIONAL: Denies fever or chills. HEENT: Denies blurred vision, vision changes, or eye pain. Denies hemoptysis CARDIOVASCULAR: Denies chest pain. Denies orthopnea. Denies PND. Denies palpitations RESPIRATORY: Denies shortness of breath. GASTROINTESTINAL: Denies abdominal pain. Denies nausea or vomiting. HEMATOLOGIC: Denies bleeding disorders. GENITOURINARY: Denies any blood in urine. SKIN: Denies pruitis. Denies rash. PHYSICAL EXAM: VITAL SIGNS: Reviewed. GENERAL: Well-developed in no acute distress. HEENT: Head is normocephalic. Pupils are equal, round. Sclerae anicteric. Mucous membranes of the mouth are moist. Neck supple. No JVD or thyromegaly LUNGS: Respirations even and unlabored. Lungs essentially clear to auscultation bilaterally. HEART: Regular rate and rhythm. S1 and S2 heard. ABDOMEN: Soft. Nondistended. Nontender. EXTREMITIES: Normal range of motion. No clubbing or cyanosis. Peripheral pulses intact. No lower extremity edema NEUROLOGIC: Awake and alert. Oriented x 3. ASSESSMENT: Sustained ventricular tachycardia, status post defibrillator discharge History of recent ventricular fibrillation with AICD discharge Coronary artery disease with previous PCI to LAD and recent balloon angioplasty to LAD Ischemic cardiomyopathy with AICD implantation Diabetes Hyperlipidemia PLAN: Continue current cardiac medications Patient to undergo repeat cardiac cath with Dr. Graff today due to VT If no progression of disease on cardiac cath, will consider antiarrhythmics and possible ablation Further recommendations pending patient's course Nurse practitioner note has been reviewed by physician. Signing provider agrees with the documented findings, assessment, and plan of care. Past Medical History Past Medical History: Asthma, Coronary Artery Disease (CAD), Diabetes Mellitus, GERD/Reflux, GI Bleed, Hyperlipidemia, Hypertension, Myocardial Infarction ([place]) Additional Past Medical History / Comment(s): see Dr Vaughan's H&P,ASTHMA CHILD, [place] X2, CAD status post PCI 2 ischemic cardiopathy status post AICD, pt stated "esophageal stricture status post esophageal dilatation resulted from acid reflux and scar tissue" Last Myocardial Infarction Date:: 2007 History of Any Multi-Drug Resistant Organisms: None Reported Past Surgical History: AICD, Heart Catheterization With Stent, Orthopedic Surgery Additional Past Surgical History / Comment(s): STENT X6, KNEE ARTHROSCOPY/CARDIAC DEFIBRILLATOR INSERTED 2008-lt chest [facility] Past Anesthesia/Blood Transfusion Reactions: No Reported Reaction Additional Past Anesthesia/Blood Transfusion Reaction / Comment(s): no hx blood transfusion Date of Last Stent Placement:: 05-02-2015 Type of Cardiac Device: AICD Device Placement Date:: 2007 Past Psychological History: No Psychological Hx Reported Smoking Status: Never smoker Past Alcohol Use History: None Reported Additional Past Alcohol Use History / Comment(s): quit smoking 2013, started at age 17,<1 ppd Past Drug Use History: None Reported - Past Family History Mother Family Medical History: Coronary Artery Disease (CAD), Hyperlipidemia, Hypertension Father Family Medical History: COPD, Coronary Artery Disease (CAD) Brother(s) Family Medical History: No Reported History Sister(s) Family Medical History: No Reported History Daughter(s) Family Medical History: No Reported History Son(s) Family Medical History: No Reported History Medications and Allergies Home Medications Medication Instructions Recorded Confirmed Type Clopidogrel [Plavix] 75 mg PO DAILY 07/06/14 02/10/22 History Pantoprazole [Protonix] 40 mg PO HS 04/30/15 02/10/22 History Aspirin 162.5 mg PO BID 05/11/19 02/10/22 History Atorvastatin [Lipitor] 40 mg PO DAILY 05/11/19 02/10/22 History Insulin Glargine,Hum.rec.anlog 45 units SQ DAILY 05/11/19 02/10/22 History [Toujeo Solostar] Sacubitril/Valsartan [Entresto 24 1 tab PO BID 05/11/19 02/10/22 History mg-26 mg Tablet] sitaGLIPtin PHOS/metFORMIN HCL 1 tab PO BID 05/11/19 02/10/22 History [Janumet 50-1,000 mg Tablet] ALPRAZolam [Xanax] 0.5 mg PO HS 02/10/22 02/10/22 History Furosemide [Lasix] 20 mg PO DAILY PRN 02/10/22 02/10/22 History carvediloL 25 mg PO BID-W/MEALS 02/10/22 02/10/22 History Allergies Allergy/AdvReac Type Severity Reaction Status Date / Time amoxicillin Allergy Anaphylaxis Verified 02/10/22 11:57 lisinopril Allergy Anaphylaxis Verified 02/10/22 11:57 Penicillins Allergy Anaphylaxis Verified 02/10/22 11:57 Physical Exam Vitals: Vital Signs Temp Pulse Resp BP Pulse Ox 02/11/22 09:05 70 02/11/22 08:59 97.8 F 70 16 143/84 98 02/11/22 03:40 97.6 F 67 18 154/94 98 02/10/22 23:10 97.4 F L 57 L 16 131/83 97 02/10/22 21:05 72 02/10/22 19:45 97.6 F 71 18 137/88 98 02/10/22 16:00 98.0 F 73 16 157/92 97 02/10/22 14:00 74 16 02/10/22 12:00 98.1 F 74 16 142/89 96 Intake and Output 02/10/22 02/11/22 02/11/22 22:59 06:59 14:59 Intake Total 640 400 Balance 640 400 Intake: Intake, IV Titration 390 400 Amount Magnesium Sulfate-D5w Pmx 0 0 1 gm In Dextrose/Water 1 100ml.bag @ 100 mls/hr IVPB Q1H KELLE Rx#: [id number] Sodium Chloride 0.9% 1, 390 400 000 ml @ 130 mls/hr IV . Q7H42M STA Rx#:[id number] Sodium Chloride 0.9% 1, 0 0 000 ml @ 999 mls/hr IV . Q1H1M ONE Rx#:[id number] Oral 250 Other: Voiding Method Toilet # Voids 2 Results 02/11/22 07:27 02/11/22 07:27 Cardiac Enzymes 02/10/22 Range/Units 12:21 Troponin I 0.053 H* (0.000-0.034) ng/mL CBC 02/11/22 Range/Units 07:27 WBC 7.8 (3.8-10.6) k/uL RBC 4.58 (4.30-5.90) m/uL Hgb 13.3 (13.0-17.5) gm/dL Hct 42.0 (39.0-53.0) % Plt Count 200 (150-450) k/uL Comprehensive Metabolic Panel 02/10/22 02/11/22 Range/Units 12:21 07:27 Sodium 138 (137-145) mmol/L Potassium 4.5 4.4 (3.5-5.1) mmol/L Chloride 103 (98-107) mmol/L Carbon Dioxide 22 (22-30) mmol/L BUN 11 (9-20) mg/dL Creatinine 0.86 (0.66-1.25) mg/dL Glucose 119 H (74-99) mg/dL Calcium 8.5 (8.4-10.2) mg/dL Current Medications Generic Name Dose Route Start Last Admin Trade Name Freq PRN Reason Stop Dose Admin Alprazolam 0.5 mg 02/10/22 21:00 02/10/22 21:01 Alprazolam 0.5 Mg Tab PO 0.5 mg HS KELLE Administration Alprazolam 0.25 mg 02/11/22 09:05 Alprazolam 0.25 Mg Tab PO Q6HR PRN Mild Anxiety Alprazolam 0.5 mg 02/11/22 09:05 Alprazolam 0.5 Mg Tab PO Q6HR PRN Moderate Anxiety Aspirin 162 mg 02/10/22 21:00 02/11/22 09:01 Aspirin 81 Mg PO 162 mg BID KELLE Administration Atorvastatin Calcium 40 mg 02/11/22 09:00 02/11/22 09:01 Atorvastatin 40 Mg Tab PO 40 mg DAILY KELLE Administration Carvedilol 25 mg 02/10/22 17:30 02/11/22 06:33 Carvedilol 12.5 Mg Tab PO 25 mg BID-W/MEALS KELLE Administration Clopidogrel Bisulfate 75 mg 02/10/22 16:15 02/11/22 09:01 Clopidogrel 75 Mg Tab PO 75 mg DAILY KELLE Administration Dextrose/Water 25 ml 02/10/22 16:35 Dextrose 50% Syringe 50 Ml IVP PER PROTOCOL PRN Hypoglycemia Protocol Dextrose/Water 50 ml 02/10/22 16:35 Dextrose 50% Syringe 50 Ml IVP PER PROTOCOL PRN Hypoglycemia Protocol Furosemide 20 mg 02/10/22 16:12 Furosemide 20 Mg Tab PO DAILY PRN Edema Heparin Sodium (Porcine) 10, 1,001 mls @ 999 mls/hr 02/12/22 07:00 000 unit/ Sodium Chloride IRRIGATION 02/12/22 23:00 ONCE PRN INTRA-OP Heparin Sodium (Porcine) 2,500 250.5 mls @ 250 mls/hr 02/12/22 07:00 unit/ Sodium Chloride IRRIGATION 02/12/22 23:00 ONCE PRN INTRA-OP Sodium Chloride 1,000 ml/ IV 1,000 mls @ 106.594 mls/hr 02/11/22 09:15 01/14 05/05 09:20 Solution IV 106.594 mls/hr .Q9H23M KELLE Administration 1 ML/KG/HR Insulin Aspart 0 unit 02/10/22 17:30 02/11/22 06:35 Insulin Aspart (Novolog) 100 Unit/Ml Vial SQ Not Given ACHS KELLE Protocol Insulin Detemir 45 unit 02/11/22 09:00 02/11/22 09:01 Insulin Detemir (Levemir) 100 Unit/Ml Syr SQ 45 unit DAILY KELLE Administration Linagliptin 5 mg 02/11/22 09:00 02/11/22 09:01 Linagliptin 5 Mg Tablet PO Not Given DAILY KELLE Metformin HCl 1,000 mg 02/10/22 21:00 02/11/22 09:00 Metformin 500 Mg Tab PO Not Given BID KELLE Morphine Sulfate 4 mg 02/10/22 06:28 Morphine Sulfate 4 Mg/Ml Syringe IV Q4HR PRN Severe Pain (Scale 7 to 10) Naloxone HCl 0.2 mg 02/10/22 06:28 Naloxone 0.4 Mg/Ml 1 Ml Vial IV Q2M PRN Opioid Reversal Nitroglycerin 0.4 mg 02/11/22 09:05 Nitroglycerin Sl Tabs 0.4 Mg Tab SUBLINGUAL Q5M PRN Chest Pain Ondansetron HCl 4 mg 02/10/22 06:28 Ondansetron 4 Mg/2 Ml Vial IVP Q8HR PRN Nausea And Vomiting Pantoprazole Sodium 40 mg 02/10/22 21:00 02/10/22 21:01 Pantoprazole 40 Mg Tablet PO 40 mg HS KELLE Administration Sacubitril/Valsartan 1 each 02/10/22 21:00 02/11/22 09:01 Sacubitril/Valsartan 24 Mg-26 Mg Tablet PO 1 each BID KELLE Administration Intake and Output 02/10/22 02/11/22 02/11/22 22:59 06:59 14:59 Intake Total 640 400 Balance 640 400 Intake: Intake, IV Titration 390 400 Amount Magnesium Sulfate-D5w Pmx 0 0 1 gm In Dextrose/Water 1 100ml.bag @ 100 mls/hr IVPB Q1H KELLE Rx#: [id number] Sodium Chloride 0.9% 1, 390 400 000 ml @ 130 mls/hr IV . Q7H42M STA Rx#:[id number] Sodium Chloride 0.9% 1, 0 0 000 ml @ 999 mls/hr IV . Q1H1M ONE Rx#:[id number] Oral 250 Other: Voiding Method Toilet # Voids 2 02/11/22 07:27 02/11/22 07:27
[2022-02-11 11:36] LABS: Glucose,Whole Blood 110 mg/dL (70-110)
--- NOTE | 2022-02-11 12:40 | P.PN ---
Subjective 56-year-old male with history of CAD as well as ischemic cardiomyopathy status post AICD. Patient reports he had heart catheterization completed about a week ago, after he had a V. fib episode terminated with AICD. Patient had diagnostic heart catheterization at [facility] which showed obstructive 80% mid LAD in-stent stenosis as well as diagonal 190% stenosis. Recommended for medical therapy of diagonal 1 branch given this was area of previous stent thrombosis and recommended for intervention of the mid LAD stent. He was transferred to [facility] and underwent balloon angioplasty of the mid LAD with good result. -- patient reports he woke up in the middle of the night to go to the bathroom at which time he didn't feel right; he went to the kitchen to get water and felt his defibrillator go off in the kitchen; patient denies any chest pain or palpitations at this time; patient decided to further evaluation 02/11/2022 Patient evidence of sustained ventricular tachycardia and his defibrillator sparked shock for him which is the reason for coming to the hospital. Currently patient sitting in bed feeling comfortable. Denied chest pain or dyspnea. No other complaints. Cardiology team are planning for cardiac cath today and possible ablation with anti-arrhythmic medication R tone based on his vitals and labs reviewed Objective - Vital Signs Vital signs: Vital Signs Temp 97.8 F 02/11/22 08:59 Pulse 70 02/11/22 09:05 Resp 16 02/11/22 08:59 BP 143/84 02/11/22 08:59 Pulse Ox 98 02/11/22 08:59 FiO2 Intake & Output 02/10/22 02/11/22 02/11/22 18:59 06:59 18:59 Intake Total 1040 Balance 1040 Weight 106.594 kg Intake: Intake, IV Titration 790 Amount Magnesium Sulfate-D5w Pmx 0 1 gm In Dextrose/Water 1 100ml.bag @ 100 mls/hr IVPB Q1H KELLE Rx#: [id number] Sodium Chloride 0.9% 1, 790 000 ml @ 130 mls/hr IV . Q7H42M STA Rx#:[id number] Sodium Chloride 0.9% 1, 0 000 ml @ 999 mls/hr IV . Q1H1M ONE Rx#:[id number] Oral 250 Other: Voiding Method Toilet Toilet # Voids 1 2 - Exam GENERAL: The patient is alert and oriented x3, not in any acute distress. Well developed, well nourished. HEENT: Pupils are round and equally reacting to light. EOMI. No scleral icterus. No conjunctival pallor. Normocephalic, atraumatic. No pharyngeal erythema. No thyromegaly. CARDIOVASCULAR: S1 and S2 present. No murmurs, rubs, or gallops. PULMONARY: Chest is clear to auscultation, no wheezing or crackles. ABDOMEN: Soft, nontender, nondistended, normoactive bowel sounds. No palpable organomegaly. MUSCULOSKELETAL: No joint swelling or deformity. EXTREMITIES: No cyanosis, clubbing, or pedal edema. NEUROLOGICAL: Gross neurological examination did not reveal any focal deficits. SKIN: No rashes. no petechiae. - Labs CBC & Chem 7: 02/11/22 07:27 02/11/22 07:27 Labs: Abnormal Lab Results - Last 24 Hours (Table) 02/10/22 02/10/22 02/10/22 Range/Units 11:52 12:21 16:23 Glucose (74-99) mg/dL POC Glucose (mg/dL) 123 H 224 H (70-110) mg/dL Troponin I 0.053 H* (0.000-0.034) ng/mL 02/10/22 02/11/22 Range/Units 20:36 07:27 Glucose 119 H (74-99) mg/dL POC Glucose (mg/dL) 121 H (70-110) mg/dL Troponin I (0.000-0.034) ng/mL Assessment and Plan Assessment: 1. Arrhythmia/defibrillator discharge - Cardiac cath today by cardiology team - Possible cardiac ablation and anti-arrhythmic medication to be adequate by cardiology team 2. Coronary artery disease with recent heart catheterization with balloon angioplasty of mid LAD; patient remains on dual antiplatelet therapy with aspirin and Plavix; continue with statins and beta blockers therapy 3. Hypertension; Coreg 25 mg twice a day; Entresto 2426 milligrams 1 tablet twice a day 4. Hyperlipidemia; Lipitor 40 mg by mouth daily at bedtime 5. Diabetes mellitus controlled with insulin; patient takes insulin glargine 45 units subcu daily; Janumet 50thousand milligrams twice a day 6. Asthma; not in exacerbation; currently not on any inhaler therapy 7. Gastroesophageal reflux disease; Protonix 40 mg daily DVT prophylaxis; SCDs, dual antiplatelet therapy with aspirin and Plavix which medication CODE STATUS; full code
[2022-02-11] MEDS ORDERED: SODIUM CHLORIDE 0.9% 1,000 ML IV ONE (14:20)
[2022-02-11] MEDS ORDERED: fentaNYL (PF) 50 MCG/1 ML VIAL IVP ONE (14:24)
[2022-02-11] MEDS ORDERED: LIDOCAINE 1% INJ 10MG/ML (30 ML VIAL-PF) SQ ONE ×2 (14:24→14:25)
[2022-02-11] MEDS ORDERED: MIDAZOLAM 2 MG/2 ML VIAL IVP ONE (14:24)
[2022-02-11] MEDS ORDERED: VERAPAMIL SYRINGE (5 MG/10 ML) INTRAARTER ONE (14:26)
[2022-02-11] MEDS ORDERED: HEPARIN SODIUM 1,000 UN/ML (10ML VL) IVP ONE (14:27)
[2022-02-11] MEDS ORDERED: IOPAMIDOL-370 125ML BTL INJ ONE (14:36)
[2022-02-11 16:45] LABS: Glucose,Whole Blood 239 mg/dL (70-110)
[2022-02-11] MEDS ORDERED: MEXILETINE 150 MG CAP PO SCH (17:30)
[2022-02-11] MEDS ORDERED: SODIUM CHLORIDE 0.9% 1,000 ML IV SCH (18:00)
--- NOTE | 2022-02-11 20:59 | P.CARDCATH ---
Description of Procedure: PROCEDURES PERFORMED: Left heart catheterization, bilateral coronary angiography INDICATION: AICD discharge, status post recent balloon angioplasty CONSENT:I have discussed the risks, benefits and alternative therapies for the above-mentioned procedure and for both sedation/analgesia as well as necessary blood product administration, if indicated, as they pertain to this patient. The patient has indicated understanding and acceptance of the risks and procedures discussed. PROCEDURE: After the risks, benefits and alternatives of the above mentioned procedure explained in detail with the patient, informed consent was obtained. Patient was taken to the catheterization lab and prepped and draped in usual fashion. 1% lidocaine was used to anesthetize the right radial artery. A 6- Setswana sheath was placed in the right radial artery using modified Seldinger technique. Left coronary angiography was performed with a 5-Setswana JL 3.5 catheter and right coronary angiography was performed with a 5-Setswana JR5 catheter in various views. A 5-Setswana FR5 catheter was inserted into the left ventricle and pressure measurements were obtained. The right radial sheath was removed and a TR band was placed with hemostasis achieved. The patient tolerated the procedure well. Patient was transported back to the post catheterization holding area in stable condition. Conscious Sedation: Patient was monitored under the direct supervision of vision of myself for conscious sedation using Versed and fentanyl for a total duration of 12 minutes HEMODYNAMICS: Aorta: 122/72 LV: 118/20, LVEDP 32 SELECTIVE CORONARY ARTERIOGRAPHY: LEFT MAIN: The left main is a large caliber vessel which bifurcates into the LAD and circumflex. There is no significant stenosis. LEFT ANTERIOR DESCENDING CORONARY ARTERY: LAD is a large caliber vessel which wraps around to the apex. There is a mid LAD stents with 20-30% in-stent stenosis and distal to the stent 40-50% stenosis and otherwise mild luminal irregularities. Diagonal 1 branch is small caliber and has a ostial 70% stenosis and subtotally occluded at the mid diagonal 1 level. LEFT CIRCUMFLEX CORONARY ARTERY: Left circumflex is a moderate caliber vessel with mild luminal irregularities. RIGHT CORONARY ARTERY: The right coronary artery is a large caliber vessel which gives off a PDA and PLV branch and is the dominant vessel. There is diffuse 20- 40% stenosis and a ostial PLV 50-60% stenosis. FINAL IMPRESSION: 1. CAD appearing similar to post angioplasty with 20-30% mid LAD instent stenosis, mid LAD 40-50% stenosis, small caliber diagonal 1 99%, RCA 20-40% and PLV 50-60% stenosis. 2. Elevated left sided filling pressures PLAN: 1. Aggressive risk factor modification per most recent ACC/AHA guidelines. 2. Similar appearing CAD as post LAD angioplasty. Would continue to treat diagonal 1 branch medically with vessel being small caliber, appearing to be chronic and would need to go through 2 layers of struts at site of previous LAD stent thrombosis and restenosis.
[2022-02-11] MEDS ORDERED: SOTALOL 80 MG TAB PO SCH (21:00)
[2022-02-11 21:30] LABS: Glucose,Whole Blood 145 mg/dL (70-110)
[2022-02-11] MEDS: ALPRAZolam 0.5 MG TAB PO SCH (21:31)
[2022-02-11] MEDS: PANTOPRAZOLE 40 MG TABLET PO SCH (21:31)
[2022-02-12] MEDS: CLOPIDOGREL 75 MG TAB PO SCH (05:14)
[2022-02-12] MEDS: SODIUM CHLORIDE 0.9% 1,000 ML in EMPTY BAG 1 BAG IV SCH (05:14)
[2022-02-12] MEDS: carvediloL 12.5 MG TAB PO SCH (05:14)
[2022-02-12] MEDS: ASPIRIN 81 MG PO SCH (05:14)
[2022-02-12] MEDS: ATORVASTATIN 40 MG TAB PO SCH (05:15)
[2022-02-12] MEDS: SACUBITRIL/VALSARTAN 24 MG-26 MG TABLET PO SCH (06:31)
[2022-02-12] MEDS: INSULIN ASPART (NovoLOG) 100 UNIT/ML VIAL SQ SCH ×3 (06:33→16:45)
[2022-02-12 06:35] LABS: Glucose,Whole Blood 118 mg/dL (70-110)
[2022-02-12] MEDS ORDERED: HEPARIN SODIUM,PORCINE 2,500 UNIT in SODIUM CHLORIDE 0.9% 250 ML IRRIGATION PRN (07:00)
[2022-02-12] MEDS ORDERED: HEPARIN SODIUM,PORCINE 10,000 UNIT in SODIUM CHLORIDE 0.9% 1,000 ML IRRIGATION PRN (07:00)
[2022-02-12] MEDS ORDERED: MIDAZOLAM 2 MG/2 ML VIAL ONE (07:25)
[2022-02-12] MEDS ORDERED: PROPOFOL 10 MG/ML 20 ML VIAL IV ONE (07:25)
[2022-02-12] MEDS ORDERED: fentaNYL (PF) 50 MCG/ML 2 ML AMP ONE (07:25)
[2022-02-12] MEDS ORDERED: IV FLUID CONTINUATION 200 ML IV ONE (07:29)
[2022-02-12] MEDS ORDERED: IOPAMIDOL-370 50ML BTL INJ ONE (08:17)
[2022-02-12] MEDS ORDERED: SODIUM CHLORIDE 0.9% 1,000 ML IV ONE (08:18)
[2022-02-12] MEDS ORDERED: SOTALOL 80 MG TAB PO STA (08:32)
--- NOTE | 2022-02-12 08:38 | P.EPCON ---
Electrophysiology Consult - EP Consult Electrophysiology Consult: This is Dr. Vaughan dictating a consult on this patient The patient was interviewed and examined IMPRESSION / ASSESSMENT: Recurrent ICD shocks despite coronary stenting last week Patient initially presented on first january with ICD shocks for very fast VT This was the same VT once again consistent with scar based VT rather than ischemia based VT Coronary angiography did not reveal any instent restenosis He has a tight lesion in a very small diagonal vessel Known ischemic cardio myopathy with severe LV dysfunction old anterior wall infarct status post stenting and history of in-stent restenosis Now has an underlying left bundle branch block morphology QRS width 142 ms and RI interval 165 ms PLAN: TSH level Add magnesium orally Noninvasive program stimulation tomorrow HPI Patient presents to the hospital with ICD shocks Interrogation of the ICD revealed fast VT However the VT was initiated by a fast tachycardia with a cycle length in the mid 200s The device initially labeled it as SVT with a 92% match Tachycardia 1 then changed to tachycardia 2 which was not amenable to antitachycardia pacing and finally the patient received defibrillation ROS: No fever chills or rigors, no cough, phlegm or expectoration, no nausea, vomiting or diarrhea, no hematuria, dysuria, no musculoskeletal complaints, no strokes or seizures, no skin lesions. EXAMINATION: 155/83 mmHg, pulse rate in the 60s and neck examination is normal no JVD Heart sounds S1 and S2 are normal irregular Breath sounds are clear no rhonchi no crackles Abdomen is soft Extremities are warm REVIEW OF LABS, ECG & MEDICAL DATA Sodium 138, potassium 4.5 BUN 14 and creatinine 0.93 Magnesium 1.8 Borderline troponins NT proBNP 459
[2022-02-12] MEDS ORDERED: MAGNESIUM OXIDE 400 MG TAB PO SCH (09:00)
--- NOTE | 2022-02-12 09:09 | P.EPPROC ---
- EP Procedure Note Electrophysiology Procedure Note: Diagnosis Recurrent ICD shocks Patient has tachycardia 1 which looks similar to SVT (cycle length of less than 300 ms This initiates tachycardia 2, with a cycle length of round 280-290 ms consistent with ventricular tachycardia Spontaneous PVCs resemble the second tachycardia, VT 2 This is nonamenable to antitachycardia pacing and the patient received a cardioversion for this successfully Recurrent ICD shocks despite Mihir stenting Consistent with scar based ventricular tachycardia rather than ischemia based VT Procedures Single chamber ICD device interrogation [facility] medical Interrogation reveals excellent sensing and thresholds as well as impedances The first tachycardia has a 90-92% match with intrinsic morphology Therefore classified as SVT It initiated a second tachycardia which is consistent with ventricular tachycard ia This could not be terminated with antitachycardia pacing Cardioversion was successful Noninvasive program stimulation Patient had spontaneous PVCs on the monitor These PVCs have a right bundle branch block morphology with Q waves in V1-V3 and a very late transition at all beyond V6 S waves in inferior leads, upright in lead 1 and aVL These resemble VT2 and a frequent enough and amenable to mapping Intrinsic DC interval 165 ms, QRS 142 ms left bundle branch block morphology, QT interval 406 ms Under conscious sedation double extrastimuli@600/320/1220 induced the first tachycardia that resembled intrinsic morphology Cycle length 290 ms Tachycardia consistent with VT with significant similarity with intrinsic QRS, with a 90-92% match with the intrinsic morphology Consistent with bundle branch reentry as suspected Successful termination with antitachycardia pacing through the device ICD reprogrammed The template was reprogrammed for a 95% match to be classified as SVT This should allow for appropriate classification as ventricular tachycardia Left upper extremity venogram performed 50 mL every dye injected Patent left subclavian and axillary venous system Plan Sotalol 120 mg twice daily and mexiletine 150 mrem 3 times a day along with oral magnesium 400 mg daily Reduce the dose of carvedilolto 12.5 mg twice daily We will schedule ablation for #1 bundle branch reentry #2 left ventricular VT Patient will be instructed to hold sotalol and mexiletine for 2 days prior to the VT ablation After bundle branch reentry VT he will be in complete heart block and will be 100% paced in the right ventricle He has severe cardio myopathy and heart failure, congestive, systolic 2 weeks after VT ablation. We'll plan for an upgrade to a Bi V ICD His subclavian vein is patent
[2022-02-12 09:38] VITALS: BP 137/81; PULSE 74; RESP 18
[2022-02-12 10:38] LABS: African American GFR (CKD) >90 (>60 ml/min/1.73 sqM); Anion Gap 11 mmol/L; Blood Urea Nitrogen 11 mg/dL (9-20); Calcium 8.2 mg/dL (8.4-10.2); Carbon Dioxide 25 mmol/L (22-30); Chloride 102 mmol/L (98-107); Glucose 119 mg/dL (74-99); Non-African American GFR(CKD) >90 (>60 ml/min/1.73 sqM); Potassium 4.5 mmol/L (3.5-5.1); Sodium 138 mmol/L (137-145)
[2022-02-12 11:56] LABS: Glucose,Whole Blood 173 mg/dL (70-110)
[2022-02-12] MEDS: MEXILETINE 150 MG CAP PO SCH ×2 (12:33→18:00)
[2022-02-12] MEDS: metFORMIN 500 MG TAB PO SCH (12:40)
[2022-02-12 12:52] LABS: T4, Free (Free Thyroxine) 1.15 ng/dL (0.78-2.19)
[2022-02-12] MEDS: INSULIN DETEMIR (LEVEMIR) 100 UNIT/ML SYR SQ SCH (12:52)
[2022-02-12] MEDS: LINAGLIPTIN 5 MG TABLET PO SCH (12:52)
--- NOTE | 2022-02-12 13:45 | P.PN ---
Subjective Progress Note Date: 02/12/22 HISTORY OF PRESENT ILLNESS: This is a 56-year-old male with a past medical history significant for coronary artery disease with previous stenting of the LAD, ischemic cardiomyopathy with AICD implantation, diabetes, and hyperlipidemia. Patient follows in the office with Dr. Vaughan. We have been asked to see the patient in consultation for defibrillator discharge. Patient was recently hospitalized secondary to his defibrillator going off. Patient was found to have ventricular fibrillation. He underwent cardiac catheterization with balloon angioplasty to the LAD. Patient was also found to have 90% stenosis of diagonal 1 branch which was treated medically. Patient was discharged home in stable condition. Patient presented back to the hospital yesterday after he felt his defibrillator fire yesterday morning. Patient states he was getting out of bed around 4:30 in the morning and was walking to the bathroom to urinate. He states that he felt off but was not quite sure what was going on. After he urinated he was standing at the sink to wash his hands and felt a big "thump" in his chest. EMS was called and he was brought to the hospital. Interrogation of his device reveals an episode of ventricular tachycardia yesterday with defibrillator discharge. * EKG reveals sinus mechanism with left bundle branch block. Left axis deviation. * Laboratory data: WBC 7.8. Hemoglobin 13.3. Platelet count 200. Sodium 138. Potassium 4.4. BUN 11. Creatinine 0.86. * Current home cardiac medications include aspirin 162.5 mg twice a day, Lipitor 40 mg daily, Plavix 75 mg daily, Lasix 20 mg daily as needed, carvedilol 25 mg twice a day, and Entresto 24-26mg BID 02/12/2022 Patient is status post cardiac cath with Dr. Graff yesterday revealing CAD appearing similar to previous catheterization. Medical management of diagonal 1 branch was recommended. Patient also underwent EP study this morning with Dr. Vaughan. Patient's carvedilol has been decreased. He has been started on mexiletine and sotalol. Plans are for outpatient ablation. Patient examined this morning at the bedside. He denies any chest pain or pressure. He denies any shortness of breath. Vital signs are stable. PHYSICAL EXAM: VITAL SIGNS: Reviewed. GENERAL: Well-developed in no acute distress. HEENT: Head is normocephalic. Pupils are equal, round. Sclerae anicteric. Mucous membranes of the mouth are moist. Neck supple. No JVD or thyromegaly LUNGS: Respirations even and unlabored. Lungs essentially clear to auscultation bilaterally. HEART: Regular rate and rhythm. S1 and S2 heard. ABDOMEN: Soft. Nondistended. Nontender. EXTREMITIES: Normal range of motion. No clubbing or cyanosis. Peripheral pulses intact. No lower extremity edema NEUROLOGIC: Awake and alert. Oriented x 3. ASSESSMENT: Sustained ventricular tachycardia, status post defibrillator discharge History of recent ventricular fibrillation with AICD discharge Coronary artery disease with previous PCI to LAD and recent balloon angioplasty to LAD Ischemic cardiomyopathy with AICD implantation Diabetes Hyperlipidemia PLAN: Continue current cardiac medications Patient's carvedilol has been decreased Patient started on mexiletine and sotalol Plan for outpatient cardioversion in the future with Dr. Vaughan Patient will also require upgrade to BiV ICD in the future Patient may be discharged home this evening Nurse practitioner note has been reviewed by physician. Signing provider agrees with the documented findings, assessment, and plan of care. Objective - Vital Signs Vital signs: Vital Signs Temp 97.8 F 02/11/22 08:59 Pulse 74 02/12/22 09:37 Resp 18 02/12/22 09:37 BP 137/81 02/12/22 09:37 Pulse Ox 99 02/12/22 09:37 FiO2 Intake & Output 02/11/22 02/12/22 02/12/22 18:59 06:59 18:59 Intake Total 50 660 200 Balance 50 660 200 Intake: IV 50 200 Intake, IV Titration 120 Amount Sodium Chloride 0.9% 1, 0 000 ml @ 20 mls/hr IV . Q24H KELLE Rx#:[id number] Sodium Chloride 0.9% 1, 120 000 ml In Empty Bag 1 bag @ 1 ML/KG/HR 106.594 mls /hr IV .Q9H23M KELLE Rx#: [id number] Oral 540 Other: Voiding Method Toilet # Voids 2 1 - Labs CBC & Chem 7: 02/11/22 07:27 02/12/22 09:48 Labs: Abnormal Lab Results - Last 24 Hours (Table) 02/11/22 02/11/22 02/12/22 Range/Units 16:43 21:29 06:32 Glucose (74-99) mg/dL POC Glucose (mg/dL) 239 H 145 H 118 H (70-110) mg/dL Calcium (8.4-10.2) mg/dL TSH (0.465-4.680) mIU/L 02/12/22 02/12/22 02/12/22 Range/Units 09:48 09:48 11:54 Glucose 119 H (74-99) mg/dL POC Glucose (mg/dL) 173 H (70-110) mg/dL Calcium 8.2 L (8.4-10.2) mg/dL TSH 10.600 H (0.465-4.680) mIU/L
[2022-02-12 16:38] LABS: Glucose,Whole Blood 121 mg/dL (70-110)
[2022-02-12] MEDS ORDERED: carvediloL 12.5 MG TAB PO SCH (17:30)
[2022-02-12] MEDS ORDERED: SOTALOL 120 MG TAB PO SCH (18:00)
--- NOTE | 2022-02-18 10:58 | P.DS ---
Providers Date of admission: 02/10/22 06:28 Attending physician: Peter Lubin Consults: 02/10/22 06:28 Consult Physician Routine Consulting Provider: Derick Graff Consult Reason/Comments: known Do you want consulting provider notified?: Yes Primary care physician: Jermaine Reza [facility] Course: Diagnoses: 1. Sustained ventricular tachycardia status post defibrillator discharge. Stable and cleared by alpaca farmer for discharge 2. Coronary artery disease with recent heart catheterization with balloon angioplasty of mid LAD; patient remains on dual antiplatelet therapy with aspirin and Plavix; continue with statins and beta blockers therapy 3. Hypertension; Coreg 25 mg twice a day; Entresto 2426 milligrams 1 tablet twice a day 4. Hyperlipidemia; Lipitor 40 mg by mouth daily at bedtime 5. Diabetes mellitus controlled with insulin; patient takes insulin glargine 45 units subcu daily; Janumet 50thousand milligrams twice a day 6. Asthma; not in exacerbation; currently not on any inhaler therapy 7. Gastroesophageal reflux disease; Protonix 40 mg daily Hospital course: 56-year-old male with history of CAD as well as ischemic cardiomyopathy status post AICD. Patient reports he had heart catheterization completed about a week ago, after he had a V. fib episode terminated with AICD. Patient had diagnostic heart catheterization at [facility] which showed obstructive 80% mid LAD in-stent stenosis as well as diagonal 190% stenosis. Recommended for medical therapy of diagonal 1 branch given this was area of previous stent thrombosis and recommended for intervention of the mid LAD stent. He was transferred to [facility] and underwent balloon angioplasty of the mid LAD with good result. On the day of discharge patient is asymptomatic. Labs and vitals are reviewed and stable. Patient on cardiac medications per alpaca farmer, carvedilol was decreased, patient is on mexiletine and sotalol. Patient will have close follow-up with Dr. Lira. Patient eager to go home today Patient was cleared for discharge by alpaca farmer Problems and management plan were discussed with the patient and he verbalized understanding and acceptance Patient was found stable and can be discharged home in guarded prognosis however he needs follow-up as an outpatient. Patient was instructed to follow up with PCP Dr. reza within one week and patient agrees with appointment on 02/14/2022. Patient also aware with appointment with Dr. Lira on Physical exam Gen: patient is a AAOx3, no distress CVS: S1-S2, RRR, no murmur Lungs: B/L CTA, no wheezing Abdomen: soft, no distention, no tenderness, positive bowel sounds Extremity: no leg edema or induration Time spent more than 35 minutes Patient Condition at Discharge: Serious Plan - Discharge Summary Discharge Rx Participant: No New Discharge Prescriptions: New Magnesium Oxide [Mag-Ox] 400 mg PO DAILY #90 tab Sotalol [Betapace] 120 mg PO BID@0600,1800 #180 tab carvediloL [Coreg*] 12.5 mg PO BID-W/MEALS #180 tab Mexiletine [Mexitil] 150 mg PO Q8HR #90 cap Continue Clopidogrel [Plavix] 75 mg PO DAILY Pantoprazole [Protonix] 40 mg PO HS sitaGLIPtin PHOS/metFORMIN HCL [Janumet 50-1,000 mg Tablet] 1 tab PO BID Insulin Glargine,Hum.rec.anlog [Toujeo Solostar] 45 units SQ DAILY Atorvastatin [Lipitor] 40 mg PO DAILY Aspirin 162.5 mg PO BID Sacubitril/Valsartan [Entresto 24 mg-26 mg Tablet] 1 tab PO BID Furosemide [Lasix] 20 mg PO DAILY PRN PRN Reason: Edema Discontinued carvediloL 25 mg PO BID-W/MEALS No Action ALPRAZolam [Xanax] 0.5 mg PO HS Discharge Medication List Clopidogrel [Plavix] 75 mg PO DAILY 07/06/14 [History] Pantoprazole [Protonix] 40 mg PO HS 04/30/15 [History] Aspirin 162.5 mg PO BID 05/11/19 [History] Atorvastatin [Lipitor] 40 mg PO DAILY 05/11/19 [History] Insulin Glargine,Hum.rec.anlog [Toujeo Solostar] 45 units SQ DAILY 05/11/19 [History] Sacubitril/Valsartan [Entresto 24 mg-26 mg Tablet] 1 tab PO BID 05/11/19 [History] sitaGLIPtin PHOS/metFORMIN HCL [Janumet 50-1,000 mg Tablet] 1 tab PO BID 05/11/19 [History] ALPRAZolam [Xanax] 0.5 mg PO HS 02/10/22 [History] Furosemide [Lasix] 20 mg PO DAILY PRN 02/10/22 [History] Magnesium Oxide [Mag-Ox] 400 mg PO DAILY #90 tab 02/12/22 [Rx] Mexiletine [Mexitil] 150 mg PO Q8HR #90 cap 02/12/22 [Rx] Sotalol [Betapace] 120 mg PO BID@0600,1800 #180 tab 02/12/22 [Rx] carvediloL [Coreg*] 12.5 mg PO BID-W/MEALS #180 tab 02/12/22 [Rx] Follow up Appointment(s)/Referral(s): Derik Vaughan MD [STAFF PHYSICIAN] - 02/15/22 4:30 pm Jermaine Reza MD [Primary Care Provider] - 02/14/22 1:00 pm Patient Instructions/Handouts: Electrophysiology Study (DC) Activity/Diet/Wound Care/Special Instructions: we recommend to check your thyroid function test with your doctor in one month Heart healthy diet Activity is restricted till you see your doctors we recommend to check your glucose 4 times a day before each meal and at bed time, keep the results in a log book and bring it to your doctor on your appointment date If your glucose less than 70 or more than 400 then call 911 on come to emergency room Discharge Disposition: HOME SELF-CARE
== END 2022-02-12 18:31 | disposition home or self-care (01) | DRG 286 ==
LOC: EC 05:36 → 3SCARD 06:28 → OBSVTOIN 06:28
PROVIDERS: ADMIT Hospitalist; ATTEND Hospitalist
PROC: 4A023N7 Measurement of Cardiac Sampling and Pressure, Left Heart, Percutaneous Approach (ICD-10-PCS; 2022-02-11)
PROC: 5A2204Z Restoration of Cardiac Rhythm, Single (ICD-10-PCS; 2022-02-11)
PROC: B2111ZZ Fluoroscopy of Multiple Coronary Arteries using Low Osmolar Contrast (ICD-10-PCS; 2022-02-11)
PROC: 4B02XTZ Measurement of Cardiac Defibrillator, External Approach (ICD-10-PCS; principal; 2022-02-11 14:00)
DX: T82.855A Stenosis of coronary artery stent, initial encounter (principal); I49.01 Ventricular fibrillation; I47.20 Ventricular tachycardia, unspecified; E11.9 Type 2 diabetes mellitus without complications; Z79.4 Long term (current) use of insulin; Z79.899 Other long term (current) drug therapy; I25.5 Ischemic cardiomyopathy; I25.10 Atherosclerotic heart disease of native coronary artery without angina pectoris; I44.7 Left bundle-branch block, unspecified; I49.3 Ventricular premature depolarization; I45.10 Unspecified right bundle-branch block; R42 Dizziness and giddiness; Y83.1 Surgical operation with implant of artificial internal device as the cause of abnormal reaction of the patient, or of later complication, without mention of misadventure at the time of the procedure; I10 Essential (primary) hypertension; K21.9 Gastro-esophageal reflux disease without esophagitis; E78.5 Hyperlipidemia, unspecified; I25.2 Old myocardial infarction; Z95.810 Presence of automatic (implantable) cardiac defibrillator; Z95.5 Presence of coronary angioplasty implant and graft; Z88.1 Allergy status to other antibiotic agents; Z88.0 Allergy status to penicillin; F41.9 Anxiety disorder, unspecified; J45.909 Unspecified asthma, uncomplicated; Z88.8 Allergy status to other drugs, medicaments and biological substances; Z79.02 Long term (current) use of antithrombotics/antiplatelets; Z79.84 Long term (current) use of oral hypoglycemic drugs; Z87.891 Personal history of nicotine dependence; Z82.49 Family history of ischemic heart disease and other diseases of the circulatory system; Z82.5 Family history of asthma and other chronic lower respiratory diseases; Z86.79 Personal history of other diseases of the circulatory system
CPT/HCPCS: 36415; 80048; 80053; 83605; 83735; 83880; 84100; 84132; 84439; 84443; 84484; 85025; 85610; 85730; 93005; 93458; 93642; 96360; 96361; 99285; 99291

== ENCOUNTER 2022-03-21 08:31 | Day surgery (SDC) | payer BC, MEDICARE ==
[~2022-03-21 08:31] MED LIST changes: +CLINDAMYCIN 600 MG in DEXTROSE 5% IN WATER 50 ML IVPB STA; -LACTATED RINGERS 1,000 ML IV SCH; -SODIUM CHLORIDE 0.9% 1,000 ML IV SCH
[2022-03-21] MEDS ORDERED: SODIUM CHLORIDE 0.9% 1,000 ML IV ONE (08:45)
[2022-03-21 09:06] LABS: Basophils # (A) 0.1 k/uL (0-0.2); Basophils % (A) 1 %; Eosinophils # (A) 0.7 k/uL (0-0.7); Eosinophils % (A) 7 %; HCT 44.9 % (39.0-53.0); HGB 14.8 gm/dL (13.0-17.5); Hypochromasia Slight; Lymphocytes # (A) 1.9 k/uL (1.0-4.8); Lymphocytes % (A) 17 %; MCH 29.2 pg (25.0-35.0); MCHC 32.8 g/dL (31.0-37.0); MCV 88.9 fL (80.0-100.0); Mean Platelet Volume 9.4; Monocytes # (A) 0.5 k/uL (0-1.0); Monocytes % (A) 5 %; Neutrophils # (A) 7.5 k/uL (1.3-7.7); Neutrophils % (A) 69 %; Platelet Count 262 k/uL (150-450); RBC 5.05 m/uL (4.30-5.90); WBC 10.8 k/uL (3.8-10.6)
[2022-03-21 09:08] LABS: Glucose,Whole Blood 137 mg/dL (70-110)
[2022-03-21 09:12] LABS: African American GFR (CKD) >90 (>60 ml/min/1.73 sqM); Anion Gap 7 mmol/L; Blood Urea Nitrogen 16 mg/dL (9-20); Calcium 8.9 mg/dL (8.4-10.2); Carbon Dioxide 30 mmol/L (22-30); Chloride 102 mmol/L (98-107); Glucose 157 mg/dL (74-99); Non-African American GFR(CKD) >90 (>60 ml/min/1.73 sqM); Potassium 3.9 mmol/L (3.5-5.1); Sodium 139 mmol/L (137-145)
[2022-03-21] MEDS ORDERED: HYDROmorphone (PF) 1 MG/ML ONE (10:20)
[2022-03-21] MEDS ORDERED: PROPOFOL 10 MG/ML 20 ML VIAL IV ONE (10:20)
[2022-03-21] MEDS ORDERED: GLYCOPYRROLATE 0.2 MG/ML 2 ML VIAL ONE (10:20)
[2022-03-21] MEDS ORDERED: FUROSEMIDE 10 MG/ML 2 ML VIAL ONE (10:20)
[2022-03-21] MEDS ORDERED: NEOSTIGMINE 1 MG/ML 10 ML VIAL ONE (10:20)
[2022-03-21] MEDS ORDERED: MIDAZOLAM 2 MG/2 ML VIAL ONE (10:20)
[2022-03-21] MEDS ORDERED: PHENYLEPHRINE-0.9% NACL SYG 1,000 MCG/10 ML SYRINGE ONE (10:20)
[2022-03-21] MEDS ORDERED: fentaNYL (PF) 50 MCG/ML 2 ML AMP ONE (10:20)
[2022-03-21] MEDS ORDERED: HEPARIN SODIUM,PORCINE 10,000 UNIT/ML 1 ML VIAL ONE (10:20)
[2022-03-21] MEDS ORDERED: ROCURONIUM 10 MG/ML (5 ML VIAL) IV ONE (10:20)
[2022-03-21] MEDS ORDERED: SUCCINYLCHOLINE CHLORIDE 200 MG/10 ML VIAL IV ONE (10:20)
[2022-03-21] MEDS ORDERED: LIDOCAINE 2% INJ 20 MG/ML (2 ML VIAL) ONE (10:20)
[2022-03-21] MEDS ORDERED: ePHEDrine 50 MG/ML 1 ML VIAL ONE (10:20)
[2022-03-21] MEDS ORDERED: LIDOCAINE 2% URO-JET JELLY 5 ML KIT ONE (10:55)
[2022-03-21] MEDS ORDERED: LIDOCAINE 1% INJ 10MG/ML (30 ML VIAL-PF) SQ ONE (11:32)
[2022-03-21] MEDS ORDERED: HEPARIN SOD,PORK IN 0.45% NACL 25,000 UNIT in 0.45% NACL 1 250ML.BAG IV ONE (11:57)
[2022-03-21] MEDS ORDERED: HEPARIN SODIUM (1,000 UNIT/ML) 1,000 UNIT in SODIUM CHLORIDE 0.9% 1,000 ML IRRIGATION ONE ×5 (12:00→15:59)
[2022-03-21] MEDS ORDERED: LACTATED RINGERS 1,000 ML IV ONE (12:54)
[2022-03-21] MEDS ORDERED: ACETAMINOPHEN TAB 325 MG TAB PO PRN (17:09)
[2022-03-21] MEDS ORDERED: FUROSEMIDE 20 MG TAB PO PRN (17:11)
--- NOTE | 2022-03-21 17:32 | P.EPPROC ---
- EP Procedure Note Electrophysiology Procedure Note: Diagnosis Recurrent ICD shocks Bundle branch reentry VT VT originating from the inferior-septal wall of the LV Frequent PVCs from the inferior wall Ischemic adenopathy with congestive heart failure Underlying left bundle branch block pattern on ECG Final diagnosis Successful bundle branch reentry VT ablation/ablation of the right bundle, with residual RBBB and normal AV node function Successful clinical PVC ablation, originating in juxtaposition to the inferoseptal papillary muscle Linear ablation along the inferior wall along the LV scar. VT induced during this ablation and terminated with RF Details patient was brought to the EP lab in a fasting state. Written informed consent obtained prior to the procedure Procedure performed under general anesthesia. IV heparin given. IV antibiotics given Device interrogated and reprogrammed. Therapies turned off. 8 impedances measured Venous sheaths from the right and left femoral veins 5-Japanese arterial sheath for hemodynamic monitoring. Patient's blood pressure remained stable through the procedure IV Lasix administered through the procedure. Intracardiac pressures within normal range Intracardiac echocardiography performed His bundle cloud mapped and tagged. A right bundle mapped and tagged LV contours made Papillary muscle along the inferoseptal wall tagged and mapped Sinus cycle length 724 ms,. And 163 ms, QRS 141 ms and QT interval 397 ms AH 52 ms and HV interval 58 ms Left and right transseptal catheterization performed Transseptal catheterization performed under intracardiac echo guidance and fluoroscopy RA pressures 13/8/10 LA pressure 31/6/17 LV cavity was accessed transseptally, across the mitral valve Activation mapping of the PVC performed. Patient had frequent PVCs at the start of the study This PVC is originating very close to the peppery muscle along its inferior margin Successful RF ablation performed At the end of the procedure there were very few clinical PVCs noted LV Voltage map performed Very dilated left ventricle Complete voltage map of the LV took a long time but was performed successfully. A very detailed mapping was made The inferior wall was interrogated since his clinical VT is originating from inferior wall line linear ablation was performed along the scar in the inferoseptal region, inferior and lateral to the septal papillary muscle During RF delivery, VT was empirically induced and cycle lengths slowing was noted with termination of VT At the end of complete RF line, no further VT was induced On one occasion we're to perform defibrillation physical patient degenerated into ventricular fibrillation However, following successful and complete Ablation in this region, no further VT or VF was induced Since this was a septal location in the LV cavity was very large a deflectable sheath had to be used to provide good contact force Long-duration of RF On account of the size of the ventricle and to maintain good contact force which was done successfully Following that a diagnostic EP study is performed Ventricle axis stimulation was performed up to double extrastimuli Ventricle ERP 600/290/220 ms and 600/200/200 ms No clinical VT was induced No bundle branch reentry was induced There were no clinical PVCs noted AV node Wenckebach block 290 ms following a right bundle ablation for bundle branch reentry During sinus recovery times and during atrial pacing, atrial fibrillation was induced with catheter manipulation Electrical cardioversion was performed with a 200 J shocks to convert the patient sinus rhythm Long-duration procedure lasting over 46 hours on account of the above but especially a very dilated left ventricle On one occasion the transseptal sheath slipped back into the right atrium and a repeat transseptal access to be obtained
--- NOTE | 2022-03-21 17:46 | P.HPCAR ---
History of Present Illness This is Dr. 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 Frequent PVCs, LV VT from the inferior wall and bundle branch reentry are his clinical problems No chest discomfort, no orthopnea PND No dizziness or lightheadedness in the last few weeks Tolerating sotalol and mexiletine along with his heart failure medications PLAN: Diagnostic EP study and ablation of multiple DVTs This is very likely going to be a long procedure on account of his LV cavity size I will approach the left ventricle transseptally across the mitral valve HPI Patient continues to be tired fatigue and shortness of breath on exertion Orthopnea PND No chest pain No syncope ROS: No fever chills or rigors, no cough, phlegm or expectoration, no nausea, vomiting or diarrhea, no hematuria, dysuria, no musculoskeletal complaints, no strokes or seizures, no skin lesions. EXAMINATION: 120/80 mmHg pulse rate in the 80s Heart sounds S1 and S2 are normal no murmurs or gallops no rubs no murmurs Lungs no rhonchi no crackles No JVD No lower extremity edema REVIEW OF LABS, ECG & MEDICAL DATA White count 10,000 hemoglobin 14.8 Sodium 139, potassium 3.9 Creatinine 0.9 Physical Exam Vitals: Vital Signs Temp Pulse Pulse Resp BP Pulse Ox 03/21/22 17:34 82 16 125/80 97 03/21/22 17:19 97 F L 85 12 120/80 97 03/21/22 08:57 97.6 F 77 16 166/96 98 Intake and Output 03/21/22 03/21/22 03/21/22 06:59 14:59 22:59 Intake Total 2323 198 Output Total 1600 Balance 2323 -1402 Intake: IV 2323 198 Output: Urine 1600 Other: Weight 111.8 kg Past Medical History Past Medical History: Asthma, Coronary Artery Disease (CAD), Diabetes Mellitus, GERD/Reflux, GI Bleed, Hyperlipidemia, Hypertension, Myocardial Infarction ([place]) Additional Past Medical History / Comment(s): see Dr Vaughan's H&P,ASTHMA CHILD, [place] X2, CAD status post PCI 2 ischemic cardiopathy status post AICD, pt stated "esophageal stricture status post esophageal dilatation resulted from acid reflux and scar tissue" Last Myocardial Infarction Date:: 2007 History of Any Multi-Drug Resistant Organisms: None Reported Past Surgical History: AICD, Heart Catheterization With Stent, Orthopedic Surgery Additional Past Surgical History / Comment(s): STENT X6, KNEE ARTHROSCOPY/CARDIAC DEFIBRILLATOR INSERTED 2007-lt chest [facility] caths 3 weeks ago feb 2022 Past Anesthesia/Blood Transfusion Reactions: No Reported Reaction Additional Past Anesthesia/Blood Transfusion Reaction / Comment(s): no hx blood transfusion Date of Last Stent Placement:: 05-02-2015 Type of Cardiac Device: AICD Device Placement Date:: 2007 Smoking Status: Former smoker - Past Family History Mother Family Medical History: Coronary Artery Disease (CAD), Hyperlipidemia, Hypertension Father Family Medical History: COPD, Coronary Artery Disease (CAD) Brother(s) Family Medical History: No Reported History Sister(s) Family Medical History: No Reported History Daughter(s) Family Medical History: No Reported History Son(s) Family Medical History: No Reported History Physical Examination Vital Signs Temp Pulse Pulse Resp BP Pulse Ox 03/21/22 17:34 82 16 125/80 97 03/21/22 17:19 97 F L 85 12 120/80 97 03/21/22 08:57 97.6 F 77 16 166/96 98 Intake and Output 03/21/22 03/21/22 03/21/22 06:59 14:59 22:59 Intake Total 2323 198 Output Total 1600 Balance 2323 -1402 Intake: IV 2323 198 Output: Urine 1600 Other: Weight 111.8 kg Results 03/21/22 08:45 03/21/22 08:45 CBC 03/21/22 Range/Units 08:45 WBC 10.8 H (3.8-10.6) k/uL RBC 5.05 (4.30-5.90) m/uL Hgb 14.8 (13.0-17.5) gm/dL Hct 44.9 (39.0-53.0) % Plt Count 262 (150-450) k/uL Comprehensive Metabolic Panel 03/21/22 Range/Units 08:45 Sodium 139 (137-145) mmol/L Potassium 3.9 (3.5-5.1) mmol/L Chloride 102 (98-107) mmol/L Carbon Dioxide 30 (22-30) mmol/L BUN 16 (9-20) mg/dL Creatinine 0.89 (0.66-1.25) mg/dL Glucose 157 H (74-99) mg/dL Calcium 8.9 (8.4-10.2) mg/dL Current Medications Generic Name Dose Route Start Last Admin Trade Name Freq PRN Reason Stop Dose Admin Acetaminophen 650 mg 03/21/22 17:09 Acetaminophen Tab 325 Mg Tab PO 04/20/22 17:10 Q6HR PRN Mild Pain (Scale 1 to 3) Alprazolam 0.5 mg 03/21/22 21:00 Alprazolam 0.5 Mg Tab PO 04/20/22 21:01 HS [facility] Aspirin 162 mg 03/21/22 21:00 Aspirin 81 Mg PO 04/20/22 21:01 BID [facility] Atorvastatin Calcium 40 mg 03/22/22 09:00 Atorvastatin 40 Mg Tab PO 04/21/22 09:01 DAILY [facility] Carvedilol 12.5 mg 03/21/22 17:30 Carvedilol 12.5 Mg Tab PO 04/20/22 17:31 BID-W/MEALS [facility] Clopidogrel Bisulfate 75 mg 03/22/22 09:00 Clopidogrel 75 Mg Tab PO 04/21/22 09:01 DAILY [facility] Furosemide 20 mg 03/21/22 17:11 Furosemide 20 Mg Tab PO 04/20/22 17:12 DAILY PRN Edema Furosemide 40 mg 03/21/22 20:00 Furosemide 40 Mg Tab PO 03/21/22 20:01 ONCE ONE Lactated Ringer's 1,000 mls @ 20 mls/hr 03/21/22 05:49 Lactated Ringers IV 04/20/22 05:50 .Q24H [facility] Sodium Chloride 1,000 mls @ 50 mls/hr 03/21/22 05:49 Saline 0.9% IV 04/20/22 05:50 .Q20H [facility] Acetaminophen 1,000 mg/ IV 100 mls @ 400 mls/hr 03/21/22 18:00 Solution IVPB 03/21/22 18:14 ONCE ONE Insulin Detemir 45 unit 03/22/22 07:00 Insulin Detemir (Levemir) 100 Unit/Ml Syr SQ DAILY@0700 [facility] Linagliptin 5 mg 03/22/22 09:00 Linagliptin 5 Mg Tablet PO DAILY [facility] Magnesium Oxide 400 mg 03/22/22 09:00 Magnesium Oxide 400 Mg Tab PO 04/21/22 09:01 DAILY [facility] Metformin HCl 1,000 mg 03/21/22 21:00 Metformin 500 Mg Tab PO BID [facility] Pantoprazole Sodium 40 mg 03/21/22 21:00 Pantoprazole 40 Mg Tablet PO 04/20/22 21:01 HS [facility] Sacubitril/Valsartan 1 each 03/21/22 21:00 Sacubitril/Valsartan 24 Mg-26 Mg Tablet PO 04/20/22 21:01 BID [facility] Sodium Chloride 12 ml 03/21/22 17:09 Sodium Chloride 0.9% Flush 10 Ml Syringe IV 04/20/22 17:10 Q12HR PRN Line Flush Sotalol HCl 80 mg 03/21/22 18:00 Sotalol 80 Mg Tab PO 04/20/22 18:01 BID@0600,1800 [facility] Intake and Output 03/21/22 03/21/22 03/21/22 06:59 14:59 22:59 Intake Total 2323 198 Output Total 1600 Balance 2323 -1402 Intake: IV 2323 198 Output: Urine 1600 Other: Weight 111.8 kg Patient Weight 03/22/22 06:59 Weight 111.8 kg 03/21/22 08:45 03/21/22 08:45
[2022-03-21] MEDS ORDERED: ACETAMINOPHEN IV (For NPO) 1,000 MG in EMPTY BAG 1 BAG IVPB ONE (18:00)
[2022-03-21] MEDS: LACTATED RINGERS 1,000 ML IV SCH (18:31)
[2022-03-21] MEDS: SODIUM CHLORIDE 0.9% 1,000 ML IV SCH (18:32)
[2022-03-21] MEDS ORDERED: FUROSEMIDE 40 MG TAB PO ONE (20:00)
[2022-03-21] MEDS: SOTALOL 80 MG TAB PO SCH (20:05)
[2022-03-21] MEDS: carvediloL 12.5 MG TAB PO SCH (20:05)
[2022-03-21] MEDS: ASPIRIN 81 MG PO SCH (20:51)
[2022-03-21] MEDS: metFORMIN 500 MG TAB PO SCH (20:52)
[2022-03-21] MEDS: SACUBITRIL/VALSARTAN 24 MG-26 MG TABLET PO SCH (20:52)
[2022-03-21] MEDS ORDERED: PANTOPRAZOLE 40 MG TABLET PO SCH (21:00)
[2022-03-21] MEDS ORDERED: ALPRAZolam 0.5 MG TAB PO SCH (21:00)
[2022-03-21] MEDS ORDERED: ONDANSETRON 4 MG/2 ML VIAL IVP PRN (22:43)
[2022-03-21] MEDS ORDERED: ASPIRIN 81 MG PO STA (22:45)
[2022-03-21] MEDS ORDERED: SOTALOL 80 MG TAB PO STA (22:45)
[2022-03-21] MEDS ORDERED: carvediloL 12.5 MG TAB PO STA (22:45)
[2022-03-21] MEDS ORDERED: SACUBITRIL/VALSARTAN 24 MG-26 MG TABLET PO STA (22:45)
[2022-03-22] MEDS: LACTATED RINGERS 1,000 ML IV SCH (00:26)
[2022-03-22] MEDS: SODIUM CHLORIDE 0.9% 1,000 ML IV SCH (00:26)
[2022-03-22] MEDS ORDERED: INSULIN DETEMIR (LEVEMIR) 100 UNIT/ML SYR SQ SCH (07:00)
[2022-03-22 07:04] VITALS: RESP 16
[2022-03-22] MEDS: SOTALOL 80 MG TAB PO SCH (07:04)
[2022-03-22] MEDS: carvediloL 12.5 MG TAB PO SCH (07:05)
[2022-03-22 07:08] LABS: Glucose,Whole Blood 134 mg/dL (70-110)
[2022-03-22] MEDS: ASPIRIN 81 MG PO SCH (07:50)
[2022-03-22] MEDS: metFORMIN 500 MG TAB PO SCH (07:52)
[2022-03-22] MEDS: SACUBITRIL/VALSARTAN 24 MG-26 MG TABLET PO SCH (07:52)
[2022-03-22 08:42] VITALS: TEMP 98.5
[2022-03-22 08:46] VITALS: BP 130/83; PULSE 79
[2022-03-22] MEDS ORDERED: ATORVASTATIN 40 MG TAB PO SCH (09:00)
[2022-03-22] MEDS ORDERED: LINAGLIPTIN 5 MG TABLET PO SCH (09:00)
[2022-03-22] MEDS ORDERED: APIXABAN 2.5 MG TABLET PO SCH (09:00)
[2022-03-22] MEDS ORDERED: MAGNESIUM OXIDE 400 MG TAB PO SCH (09:00)
[2022-03-22] MEDS ORDERED: CLOPIDOGREL 75 MG TAB PO SCH (09:00)
--- NOTE | 2022-03-22 09:41 | P.DS ---
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 Frequent PVCs, LV VT from the inferior wall and bundle branch reentry are his clinical problems 03/22 Patient is complaining of right eye prisms, cold symptoms and shakiness when he sat up. No chest discomfort, no orthopnea PND No dizziness or lightheadedness in the last few weeks Tolerating sotalol and mexiletine along with his heart failure medications PLAN: Start patient on eliquis 2.5 mg twice daily for 1 month only Obtain orthostatic vital signs-negative results Limited echocardiogram to assess for thrombus Patient will be cleared for discharge later today if echocardiogram and orthostatics are negative HPI Patient continues to be tired fatigue and shortness of breath on exertion Orthopnea PND No chest pain No syncope EXAMINATION: 130/83 mmHg pulse rate in the 90s Heart sounds S1 and S2 are normal no murmurs or gallops no rubs no murmurs Lungs no rhonchi no crackles No JVD No lower extremity edema Impression and plan of care have been directed as dictated by the signing physician. Sonya Zheng nurse practitioner acting as scribe for signing physician. Patient Condition at Discharge: Good Plan - Discharge Summary Discharge Rx Participant: No New Discharge Prescriptions: New Apixaban [Eliquis] 2.5 mg PO BID #60 tab No Action Clopidogrel [Plavix] 75 mg PO DAILY Pantoprazole [Protonix] 40 mg PO HS sitaGLIPtin PHOS/metFORMIN HCL [Janumet 50-1,000 mg Tablet] 1 tab PO BID Insulin Glargine,Hum.rec.anlog [Toujeo Solostar] 45 units SQ DAILY Atorvastatin [Lipitor] 40 mg PO DAILY Aspirin 162.5 mg PO BID Sacubitril/Valsartan [Entresto 24 mg-26 mg Tablet] 1 tab PO BID Furosemide [Lasix] 20 mg PO DAILY PRN PRN Reason: Edema ALPRAZolam [Xanax] 0.5 mg PO HS Magnesium Oxide [Mag-Ox] 400 mg PO DAILY #90 tab Sotalol [Betapace] 120 mg PO BID@0600,1800 #180 tab carvediloL [Coreg*] 12.5 mg PO BID-W/MEALS #180 tab Mexiletine [Mexitil] 150 mg PO Q8HR #90 cap Discharge Medication List Clopidogrel [Plavix] 75 mg PO DAILY 07/06/14 [History] Pantoprazole [Protonix] 40 mg PO HS 04/30/15 [History] Aspirin 162.5 mg PO BID 05/11/19 [History] Atorvastatin [Lipitor] 40 mg PO DAILY 05/11/19 [History] Insulin Glargine,Hum.rec.anlog [Toujeo Solostar] 45 units SQ DAILY 05/11/19 [History] Sacubitril/Valsartan [Entresto 24 mg-26 mg Tablet] 1 tab PO BID 05/11/19 [History] sitaGLIPtin PHOS/metFORMIN HCL [Janumet 50-1,000 mg Tablet] 1 tab PO BID 05/11/19 [History] ALPRAZolam [Xanax] 0.5 mg PO HS 02/10/22 [History] Furosemide [Lasix] 20 mg PO DAILY PRN 02/10/22 [History] Magnesium Oxide [Mag-Ox] 400 mg PO DAILY #90 tab 02/12/22 [Rx] Mexiletine [Mexitil] 150 mg PO Q8HR #90 cap 02/12/22 [Rx] Sotalol [Betapace] 120 mg PO BID@0600,1800 #180 tab 02/12/22 [Rx] carvediloL [Coreg*] 12.5 mg PO BID-W/MEALS #180 tab 02/12/22 [Rx] Apixaban [Eliquis] 2.5 mg PO BID #60 tab 03/22/22 [Rx] Follow up Appointment(s)/Referral(s): Derik Vaughan MD [STAFF PHYSICIAN] - 1 Week Discharge Disposition: HOME SELF-CARE
--- NOTE | 2022-03-22 11:46 | CA ---
Transthoracic Echo Report Name: Alex Monaco Age: 56 Gender: M : 1965 Exam Date: 03/22/2022 08:46 Exam Location: [facility] Ht (in): 74 Wt (lb): 246 Ordering Physician: Sonya Zheng Attending/Referring Phys: Derik Vaughan MD ([id number]) [employer] L[employer] Bethany Wilson RDCS Procedure CPT: Indications: Thrombus Cardiac Hx: Technical Quality: Technically difficult study Contrast 1: Lumason Total Dose (mL): 5 Contrast 2: Total Dose (mL): MEASUREMENTS (Male / Female) Normal Values 2D ECHO LV Diastolic Volume MOD BP 264.5 cm??? 67 - 155 / 56 - 104 cm??? LV Systolic Volume MOD BP 217.0 cm??? 22 - 58 / 19 - 49 cm??? LV Ejection Fraction MOD BP 18.0 % >= 55 % LV Cardiac Index MOD BP 1614.1 cm???/min???m??? LV Diastolic Volume MOD 4C 253.3 cm??? LV Systolic Volume MOD 4C 210.6 cm??? LV Ejection Fraction MOD 4C 16.9 % LV Cardiac Index MOD 4C 1452.0 cm???/min???m??? LV Diastolic Length 4C 8.7 cm LV Systolic Length 4C 9.3 cm LV Diastolic Volume MOD 2C 251.5 cm??? LV Systolic Volume MOD 2C 216.7 cm??? LV Ejection Fraction MOD 2C 13.8 % LV Cardiac Index MOD 2C 1181.8 cm???/min???m??? LV Diastolic Length 2C 9.6 cm LV Systolic Length 2C 9.7 cm DOPPLER TR Peak Velocity 189.8 cm/s TR Peak Gradient 14.4 mmHg Right Ventricular Systolic Press 19.4 mmHg FINDINGS Left Ventricle Limited study. Severely increased left ventricular diastolic volume. Severely increased left ventricular systolic volume. Severely decreased left ventricular ejection fraction. Left ventricular ejection fraction is estimated at < 20 %. Right Ventricle Right Atrium Left Atrium Mitral Valve Mild mitral regurgitation. No mitral stenosis. Aortic Valve No aortic valve stenosis or regurgitation. Tricuspid Valve Mild tricuspid regurgitation. Pulmonic Valve Pericardium No pericardial effusion. Aorta CONCLUSIONS Severe LV dysfunction No LV thrombus Previewed by: Dr. Derik Vaughan MD (Electronically Signed) Final Date: 22 March 2022 11:45
== END 2022-03-22 12:58 | disposition home or self-care (01) ==
LOC: CATHEP 08:31 → 6NMEDSUR 16:41 → CATHEP 03-22 12:58
PROVIDERS: ATTEND Internal Medicine Clinical Cardiac Electrophysiology
DX: I47.20 Ventricular tachycardia, unspecified (principal); I25.10 Atherosclerotic heart disease of native coronary artery without angina pectoris; E11.9 Type 2 diabetes mellitus without complications; I11.0 Hypertensive heart disease with heart failure; I25.2 Old myocardial infarction; E78.5 Hyperlipidemia, unspecified; I25.5 Ischemic cardiomyopathy; I44.7 Left bundle-branch block, unspecified; I50.9 Heart failure, unspecified; J45.909 Unspecified asthma, uncomplicated; K21.9 Gastro-esophageal reflux disease without esophagitis; Z79.4 Long term (current) use of insulin; Z82.49 Family history of ischemic heart disease and other diseases of the circulatory system; Z83.49 Family history of other endocrine, nutritional and metabolic diseases; Z87.891 Personal history of nicotine dependence; Z95.5 Presence of coronary angioplasty implant and graft; Z95.810 Presence of automatic (implantable) cardiac defibrillator
CPT/HCPCS: 93308; 93462; 92960; 93662; 93654; 80048; 85025; J2250; J0330; J1644 ×3; J1940; J2710; J2405; J2001 ×2; J3010; J1170; J2370; J2704; Q9950

== ENCOUNTER 2022-04-17 19:23 | Inpatient (IN) | payer BC, MEDICARE ==
[2022-04-17 20:00] LABS: Basophils # (A) 0.1 k/uL (0-0.2); Basophils % (A) 1 %; Eosinophils # (A) 0.7 k/uL (0-0.7); Eosinophils % (A) 7 %; HCT 46.3 % (39.0-53.0); HGB 14.8 gm/dL (13.0-17.5); Hypochromasia Moderate; Lymphocytes # (A) 2.5 k/uL (1.0-4.8); Lymphocytes % (A) 26 %; MCHC 32.1 g/dL (31.0-37.0); MCV 90.6 fL (80.0-100.0); Mean Platelet Volume 9.8; Monocytes # (A) 0.6 k/uL (0-1.0); Monocytes % (A) 7 %; Neutrophils # (A) 5.6 k/uL (1.3-7.7); Neutrophils % (A) 58 %; Platelet Count 314 k/uL (150-450); RBC 5.11 m/uL (4.30-5.90); RDW 14.1 % (11.5-15.5); WBC 9.6 k/uL (3.8-10.6)
[2022-04-17 20:09] LABS: ALT 42 U/L (4-49); AST 52 U/L (17-59); African American GFR (CKD) >90 (>60 ml/min/1.73 sqM); Albumin 4.3 g/dL (3.5-5.0); Alkaline Phosphatase 74 U/L (38-126); Anion Gap 11 mmol/L; Blood Urea Nitrogen 18 mg/dL (9-20); Calcium 9.5 mg/dL (8.4-10.2); Carbon Dioxide 25 mmol/L (22-30); Chloride 102 mmol/L (98-107); Glucose 165 mg/dL (74-99); Magnesium 1.7 mg/dL (1.6-2.3); Non-African American GFR(CKD) 81 (>60 ml/min/1.73 sqM); Potassium 4.7 mmol/L (3.5-5.1); Sodium 138 mmol/L (137-145); Total Bilirubin 0.5 mg/dL (0.2-1.3); Total Protein 7.1 g/dL (6.3-8.2)
[2022-04-17] MEDS ORDERED: DEXTROSE 5% IN WATER 100 ML with AMIODARONE 150 MG IV ONE (20:15)
[2022-04-17] MEDS ORDERED: AMIODARONE 360 MG in DEXTROSE 5% IN WATER 200 ML IV ONE ×2 (20:30)
[2022-04-17] MEDS ORDERED: ONDANSETRON 4 MG/2 ML VIAL IVP STA ×2 (20:43→23:42)
--- NOTE | 2022-04-17 22:09 | XR ---
EXAM: XR Chest, 1 View CLINICAL HISTORY: ITS.REASON XR Reason: Tachy TECHNIQUE: Frontal view of the chest. COMPARISON: No relevant prior studies available. FINDINGS: Lungs: Mild central pulmonary vascular congestion. Pleural space: Unremarkable. No pneumothorax. Heart: See below. Mediastinum: Unremarkable. Bones/joints: Unremarkable. Tubes, lines and devices: Left chest wall single lead intracardiac device. Cardiomegaly. IMPRESSION: As above
[2022-04-17] MEDS ORDERED: DILTIAZEM 5 MG/ML 5 ML VIAL IVP STA (22:34)
[2022-04-17] MEDS ORDERED: ADENOSINE 3 MG/ML 2 ML VIAL IVP STA ×2 (22:47→22:49)
[2022-04-17] MEDS ORDERED: MIDAZOLAM 1 MG/ML 5 ML VIAL IV STA (22:48)
[2022-04-17] MEDS ORDERED: SODIUM CHLORIDE 0.9% 1,000 ML IV ONE (22:50)
[2022-04-17] MEDS ORDERED: DILTIAZEM 125 MG in SODIUM CHLORIDE 0.9% 100 ML IV SCH (23:00)
[2022-04-17] MEDS ORDERED: ETOMIDATE 2 MG/ML 10 ML VIAL IVP STA (23:22)
[2022-04-17] MEDS ORDERED: ETOMIDATE 2 MG/ML 10 ML VIAL IV STA (23:22)
[2022-04-17] MEDS ORDERED: fentaNYL (PF) 50 MCG/ML 2 ML AMP IVP PRN (23:23)
[2022-04-17] MEDS ORDERED: fentaNYL (PF) 50 MCG/ML 2 ML AMP IVP STA (23:23)
[2022-04-17] MEDS ORDERED: NALOXONE 0.4 MG/ML 1 ML VIAL IV PRN (23:55)
--- NOTE | 2022-04-18 00:25 | XR ---
EXAMINATION TYPE: XR chest 1V portable DATE OF EXAM: 04/18/2022 COMPARISON: 04/17/2022 HISTORY: Cough TECHNIQUE: Single view FINDINGS: Heart is enlarged. No heart failure. There is left axillary pacemaker. No pleural effusion. Bony thorax is intact IMPRESSION: No active cardiopulmonary disease. No change
--- NOTE | 2022-04-18 00:30 | ED ---
General Adult HPI - General Chief complaint: Chest Pain Stated complaint: Chest pain/ Source: patient Mode of arrival: ambulatory Limitations: no limitations - History of Present Illness Initial comments: This is a 56-year-old male with a significant cardiac history including a low ejection fraction, defibrillator, pacemaker, previous stents and recent cardiac ablation 2 weeks ago presents emergency department for tachycardia and chest pain. The patient stated that approximately 20 minutes prior to arrival he started to have increasing tachycardia with shortness of breath. The patient stated that this is happened several times before and he was told by his spout liner to come to the emergency department immediately. The patient denied any lightheadedness or dizziness as well as any diaphoresis. The patient took his medications as previous he prescribed and did not complain of any other acute complaints. - Related Data Home Medications Medication Instructions Recorded Confirmed Clopidogrel [Plavix] 75 mg PO DAILY 07/06/14 03/21/22 Pantoprazole [Protonix] 40 mg PO HS 04/30/15 03/19/22 Aspirin 162.5 mg PO BID 05/11/19 03/21/22 Atorvastatin [Lipitor] 40 mg PO DAILY 05/11/19 03/21/22 Insulin Glargine,Hum.rec.anlog 45 units SQ DAILY 05/11/19 03/19/22 [Toujeo Solostar] Sacubitril/Valsartan [Entresto 24 1 tab PO BID 05/11/19 03/19/22 mg-26 mg Tablet] sitaGLIPtin PHOS/metFORMIN HCL 1 tab PO BID 05/11/19 03/19/22 [Janumet 50-1,000 mg Tablet] ALPRAZolam [Xanax] 0.5 mg PO HS 02/10/22 03/19/22 Furosemide [Lasix] 20 mg PO DAILY PRN 02/10/22 03/19/22 Previous Rx's Medication Instructions Recorded Magnesium Oxide [Mag-Ox] 400 mg PO DAILY #90 tab 02/12/22 Mexiletine [Mexitil] 150 mg PO Q8HR #90 cap 02/12/22 Sotalol [Betapace] 120 mg PO BID@0600,1800 #180 tab 02/12/22 carvediloL [Coreg*] 12.5 mg PO BID-W/MEALS #180 tab 02/12/22 Apixaban [Eliquis] 2.5 mg PO BID #60 tab 03/22/22 Allergies Allergy/AdvReac Type Severity Reaction Status Date / Time amoxicillin Allergy Anaphylaxis Verified 04/17/22 19:29 lisinopril Allergy Anaphylaxis Verified 04/17/22 19:29 Penicillins Allergy Anaphylaxis Verified 04/17/22 19:29 Review of Systems ROS Statement: Those systems with pertinent positive or pertinent negative responses have been documented in the HPI. ROS Other: All systems not noted in ROS Statement are negative. Past Medical History Past Medical History: Asthma, Coronary Artery Disease (CAD), Diabetes Mellitus, GERD/Reflux, GI Bleed, Hyperlipidemia, Hypertension, Myocardial Infarction (ND) Additional Past Medical History / Comment(s): see Dr Vaughan's H&P,ASTHMA CHILD, ND X2, CAD status post PCI 2 ischemic cardiopathy status post AICD, pt stated "esophageal stricture status post esophageal dilatation resulted from acid reflux and scar tissue" Last Myocardial Infarction Date:: 2007 History of Any Multi-Drug Resistant Organisms: None Reported Past Surgical History: AICD, Heart Catheterization With Stent, Orthopedic Surgery Additional Past Surgical History / Comment(s): STENT X6, KNEE ARTHROSCOPY/CARDIAC DEFIBRILLATOR INSERTED 2007-lt chest [facility] Past Anesthesia/Blood Transfusion Reactions: No Reported Reaction Additional Past Anesthesia/Blood Transfusion Reaction / Comment(s): no hx blood transfusion Date of Last Stent Placement:: 05-02-2015 Type of Cardiac Device: AICD Device Placement Date:: 2007 Past Psychological History: No Psychological Hx Reported Smoking Status: Never smoker Past Alcohol Use History: None Reported Past Drug Use History: None Reported - Past Family History Mother Family Medical History: Coronary Artery Disease (CAD), Hyperlipidemia, Hype rtension Father Family Medical History: COPD, Coronary Artery Disease (CAD) Brother(s) Family Medical History: No Reported History Sister(s) Family Medical History: No Reported History Daughter(s) Family Medical History: No Reported History Son(s) Family Medical History: No Reported History General Exam Limitations: no limitations General appearance: alert, anxious Head exam: Present: atraumatic, normocephalic Eye exam: Present: normal appearance, PERRL Pupils: Present: normal accommodation ENT exam: Present: normal exam, normal oropharynx, mucous membranes moist Neck exam: Present: normal inspection, full ROM Respiratory exam: Present: normal lung sounds bilaterally Cardiovascular Exam: Present: normal rhythm, tachycardia GI/Abdominal exam: Present: soft, normal bowel sounds Extremities exam: Present: normal inspection, full ROM Back exam: Present: normal inspection, full ROM Neurological exam: Present: alert, oriented X3, CN II-XII intact Psychiatric exam: Present: normal affect, normal mood Skin exam: Present: warm, dry Course Vital Signs 04/17/22 04/17/22 04/17/22 19:25 20:00 20:15 Temperature 98.2 F Pulse Rate 170 H 165 H 163 H Respiratory 20 14 14 Rate Blood Pressure 120/88 127/106 133/112 O2 Sat by Pulse 98 99 98 Oximetry 04/17/22 04/17/22 04/17/22 20:30 22:20 22:23 Temperature Pulse Rate 163 H 163 H 163 H Respiratory 14 18 16 Rate Blood Pressure 116/78 107/94 121/72 O2 Sat by Pulse 98 97 97 Oximetry 04/17/22 04/17/22 04/17/22 22:25 22:27 23:13 Temperature Pulse Rate 163 H 161 H 161 H Respiratory 14 15 16 Rate Blood Pressure 110/65 110/84 79/63 O2 Sat by Pulse 97 97 97 Oximetry EKG Findings - EKG Comments: EKG Findings:: Initial EKG was obtained and was interpreted by myself. EKG showed a rate of 169, QRS duration is 242 and QTC of 508. This EKG showed tachycardia with a right bundle branch block, possibly SVT with an apparent C however there was no ST segment elevations or depressions noting and a STEMI. After the patient had multiple medications given, a repeat EKG was obtained and was interpreted by myself showing, after cardioversion, a rate of 70, LA interval 160, QR denominational of 186 and QTC of 501. This EKG showed a normal sinus rhythm with a right bundle branch block symmetries previous EKGs. Procedures - Procedures Initial comment: A cigarette cardioversion was performed. The patient had all monitors connected including oxygen and blood pressure cuff. The patient was given etomidate, 0.1 mg/kg as a initial dose and then 0.05 mg/kg as a dose just prior to administration of the shock. The patient was given 75 J of cigarettes cardioversion with conversion to normal sinus rhythm. Medical Decision Making - Medical Decision Making Was pt. sent in by a medical professional or institution ([facility], [facility] [employer], urgent care, hospital, or senior living...) When possible be specific @ -No Did you speak to anyone other than the patient for history (EMS, parent, family, police, friend...)? What history was obtained from this source @ -Yes, patient's Did you review nursing and triage notes (agree or disagree)? Why? @ -I reviewed and agree with nursing and triage notes Were old charts reviewed (outside hosp., previous admission, EMS record, old EKG, old radiological studies, urgent care reports/EKG's, senior living records)? Report findings @ -No old charts were reviewed Differential Diagnosis (chest pain, altered mental status, abdominal pain women, abdominal pain men, vaginal bleeding, weakness, fever, dyspnea, syncope, headache, dizziness, GI bleed, back pain, seizure, CVA, palpatations, mental health)? @ -Acute coronary syndrome, PE, pneumonia, pneumothorax EKG interpreted by me (3pts min.). @ -As above X-rays interpreted by me (1pt min.). @ -Chest x-ray was obtained and was interpreted by myself showing no acute process. CT interpreted by me (1pt min.). @ -None done U/S interpreted by me (1pt. min.). @ -None done What testing was considered but not performed or refused? (CT, X-rays, U/S, l abs)? Why? @ -None What meds were considered but not given or refused? Why? @ -None Did you discuss the management of the patient with other professionals (professionals i.e. [facility], [facility] [employer], lab, RT, psych nurse, social work supervisor, playground aide, teacher, court registry officer, field nurse case manager)? Give summary @ -Yes, the patient was discussed with the on-call classifying machine operator, Dr. Graff multiple times. Was smoking cessation discussed for >3mins.? @ -No Was critical care preformed (if so, how long)? @ -Yes, see above Were there social determinants of health that impacted care today? How? (Homelessness, low income, unemployed, alcoholism, drug addiction, transportation, low edu. Level, literacy, decrease access to med. care, fdc, rehab)? @ -No Was there de-escalation of care discussed even if they declined (Discuss DNR or withdrawal of care, Hospice)? DNR status @ -No What co-morbidities impacted this encounter? (DM, HTN, Smoking, COPD, CAD, Cance r, CVA, ARF, Chemo, Hep., AIDS, mental health diagnosis, sleep apnea, morbid obesity)? @ -Extensive cardiac history including cardiac stenting and fibrillator and pacemaker placement Was patient admitted / discharged? Hospital course, mention meds given and rout e, prescriptions, significant lab abnormalities, going to OR and other pertinent info. @ -The patient was seen and evaluated emergency department. Physical exam, the patient was tachycardic on arrival and complained of minor chest discomfort. Initially on arrival, EKGs were obtained and showed a possible SVT with aberrancy versus a sinus tachycardia. The patient was not in V. tach at this time. The patient received amiodarone push as well as an amiodarone drip per recommendation of the classifying machine operator. The patient didn't have any change in his heart rate and remained at 163 bpm. The patient remained at this for approximately 2 hours in order to see if the amiodarone would improve his symptoms however did not. The classifying machine operator was contacted once again and a pulse of Cardizem was recommended. The patient was also started on a Cardizem drip while the amiodarone was stopped. The patient's blood pressure did decrease significantly therefore this medication was stopped. The patient had now been in this rhythm and tachycardia for several hours therefore the decision was made to cardiovert the patient. The patient was given etomidate for sedation and he was excessively cardioverted to a normal sinus rhythm. The patient will be admitted to the ICU for further workup and evaluation with cardiology on consult. The patient was accepted for admission by his primary care physician group who was covering by Corky Rodríguez at 2054. Dr. Cabello was contacted at 0 025 was accepted the patient to the ICU. The patient and his family were told of every up-to-date and all her questions were answered appropriately. The patient was admitted to the ICU in stable condition. Undiagnosed new problem with uncertain prognosis? @ -No Drug Therapy requiring intensive monitoring for toxicity (Heparin, Nitro, Insuli n, Cardizem)? @ -No Were any procedures done? @ -Yes, synchronized cardioversion Diagnosis/symptom? @ -Sinus tachycardia versus SVT with aberrancy, status post cardioversion Acute, or Chronic, or Acute on Chronic? @ -Acute Uncomplicated (without systemic symptoms) or Complicated (systemic symptoms)? @ -Complicated Side effects of treatment? @ -No Exacerbation, Progression, or Severe Exacerbation? @ -No Poses a threat to life or bodily function? How? (Chest pain, [place], ND, pneumonia, PE, COPD, DKA, ARF, appy, cholecystitis, CVA, Diverticulitis, Homicidal, Suicidal, threat to staff... and all critical care pts) @ -Yes - Lab Data Result diagrams: 04/17/22 19:54 04/17/22 19:54 Lab Results 04/17/22 04/17/22 04/17/22 Range/Units 19:54 19:54 19:54 WBC 9.6 (3.8-10.6) k/uL RBC 5.11 (4.30-5.90) m/uL Hgb 14.8 (13.0-17.5) gm/dL Hct 46.3 (39.0-53.0) % MCV 90.6 (80.0-100.0) fL MCH 29.0 (25.0-35.0) pg MCHC 32.1 (31.0-37.0) g/dL RDW 14.1 (11.5-15.5) % Plt Count 314 (150-450) k/uL MPV 9.8 Neutrophils % 58 % Lymphocytes % 26 % Monocytes % 7 % Eosinophils % 7 % Basophils % 1 % Neutrophils # 5.6 (1.3-7.7) k/uL Lymphocytes # 2.5 (1.0-4.8) k/uL Monocytes # 0.6 (0-1.0) k/uL Eosinophils # 0.7 (0-0.7) k/uL Basophils # 0.1 (0-0.2) k/uL Hypochromasia Moderate Sodium 138 (137-145) mmol/L Potassium 4.7 (3.5-5.1) mmol/L Chloride 102 (98-107) mmol/L Carbon Dioxide 25 (22-30) mmol/L Anion Gap 11 mmol/L BUN 18 (9-20) mg/dL Creatinine 1.05 (0.66-1.25) mg/dL Est GFR (CKD-EPI)AfAm >90 (>60 ml/min/1.73 sqM) Est GFR (CKD-EPI)NonAf 81 (>60 ml/min/1.73 sqM) Glucose 165 H (74-99) mg/dL Calcium 9.5 (8.4-10.2) mg/dL Magnesium 1.7 (1.6-2.3) mg/dL Total Bilirubin 0.5 (0.2-1.3) mg/dL AST 52 (17-59) U/L ALT 42 (4-49) U/L Alkaline Phosphatase 74 (38-126) U/L Troponin I 0.028 (0.000-0.034) ng/mL NT-Pro-B Natriuret Pep pg/mL Total Protein 7.1 (6.3-8.2) g/dL Albumin 4.3 (3.5-5.0) g/dL 04/17/22 Range/Units 19:54 WBC (3.8-10.6) k/uL RBC (4.30-5.90) m/uL Hgb (13.0-17.5) gm/dL Hct (39.0-53.0) % MCV (80.0-100.0) fL MCH (25.0-35.0) pg MCHC (31.0-37.0) g/dL RDW (11.5-15.5) % Plt Count (150-450) k/uL MPV Neutrophils % % Lymphocytes % % Monocytes % % Eosinophils % % Basophils % % Neutrophils # (1.3-7.7) k/uL Lymphocytes # (1.0-4.8) k/uL Monocytes # (0-1.0) k/uL Eosinophils # (0-0.7) k/uL Basophils # (0-0.2) k/uL Hypochromasia Sodium (137-145) mmol/L Potassium (3.5-5.1) mmol/L Chloride (98-107) mmol/L Carbon Dioxide (22-30) mmol/L Anion Gap mmol/L BUN (9-20) mg/dL Creatinine (0.66-1.25) mg/dL Est GFR (CKD-EPI)AfAm (>60 ml/min/1.73 sqM) Est GFR (CKD-EPI)NonAf (>60 ml/min/1.73 sqM) Glucose (74-99) mg/dL Calcium (8.4-10.2) mg/dL Magnesium (1.6-2.3) mg/dL Total Bilirubin (0.2-1.3) mg/dL AST (17-59) U/L ALT (4-49) U/L Alkaline Phosphatase (38-126) U/L Troponin I (0.000-0.034) ng/mL NT-Pro-B Natriuret Pep 1560 pg/mL Total Protein (6.3-8.2) g/dL Albumin (3.5-5.0) g/dL Critical Care Time Critical Care Time: Yes Total Critical Care Time: 45 Disposition Clinical Impression: Tachycardia, Chest pain, Cardiomyopathy Disposition: ADMITTED IP TO THIS [facility] Condition: Serious Is patient prescribed a controlled substance at d/c from ED?: No Referrals: Jermaine Degroot MD [Primary Care Provider] - 1-2 days Time of Disposition: 20:55 Decision to Admit Reason: Admit from EC Decision Date: 04/17/22 Decision Time: 20:55
[2022-04-18 00:38] LABS: Glucose,Whole Blood 169 mg/dL (70-110)
[2022-04-18] MEDS ORDERED: IPRATROPIUM-ALBUTEROL 3 ML NEB INHALATION PRN ×2 (02:27→02:29)
[2022-04-18] MEDS ORDERED: FUROSEMIDE 10 MG/ML 4 ML VIAL IV STA (02:29)
[2022-04-18] MEDS ORDERED: methylPREDNISolone SOD SUCCI 125 MG/2 ML VIAL IV STA (02:29)
[2022-04-18] MEDS ORDERED: ALPRAZolam 0.5 MG TAB PO STA (02:30)
[2022-04-18] MEDS ORDERED: AMIODARONE 450 MG in DEXTROSE 5% IN WATER 250 ML IV SCH ×2 (02:30)
--- NOTE | 2022-04-18 06:01 | P.CNPUL ---
History of Present Illness Consult date: 04/18/22 Reason for consult: dyspnea History of present illness: This is a 56-year-old male patient with known history of ischemic cardiomyopathy with an ejection fraction of 30% and the patient has history of recurrent ventricular tachycardia with previous ablation and the patient has a single- chamber ICD and he has history of previous recurrent ICD shocks. The patient was in the hospital back in March 2022. At that time, the patient was seen b y cardiology, the patient underwent a successful bundle branch reentry SVT ablation and ablation of a right bundle with residual RBB and normal AV function was identified. The patient had successful PTCA ablation originating from the anteroseptal Alerted muscle. There was an admission along the inferior wall along the LV scar. The patient was ultimately discharged home on a combination of Coreg 25 mg by mouth twice a day, sotalol 120 mg by mouth twice a day, Mexitil 150 mg by mouth every 8 hours, Eliquis 2.5 mg by mouth daily. Is already on Plavix and ASA and Entresto regarding his cardio myopathy. The patient presented to the emergency department yesterday with symptoms of shortness of breath and he was tachycardic. His EKG showed a wide complex tachycardia with a heart rate ranging between 160 and 180 and underlying rhythm was not clear. Could be an aberrant rhythm. Possibility of V. tach and IV completely excluded. The patient was hemodynamically stable. BP was 120/80. Normal pulse ox. Afebrile. He was however significantly tachycardic. The patient was cardioverted after being given etomidate and was given 75 J cardioversion and converted into normal sinus rhythm. Motor the patient was also given amiodarone in the emergency room a trial basis and this did not af fect his cardiac rhythm. He was monitored for a total of 2 hours. He was tried on Cardizem drip and amiodarone was discontinued. The blood pressure dropped and Cardizem drip had to be discontinued. Ultimately, this led into a successful cardioversion. His chest x-ray is clear. He does have some hepatomegaly. There is no visible is at 9.6 with a hemoglobin of 14.8 and a platelet count of 314. Electrodes are normal. Troponins at 0.028 and his proBNP level is 1560. Most recent EKG from this morning showed a sinus rhythm with a right bundle branch block pattern. The patient is also diabetic and has hyperlipidemia in addition to his underlying cardiomyopathy. Review of Systems Constitutional: Denies chills, Denies fever Eyes: denies as per HPI, denies blurred vision, denies bulging eye, denies decreased vision, denies diplopia, denies discharge, denies dry eye, denies irritation, denies itching, denies pain, denies photophobia, denies loss of peripheral vision, denies loss of vision, denies tunnel vision/blind spots Ears, nose, mouth and throat: Reports as per HPI Breasts: absent: as per HPI, gynecomastia Cardiovascular: Reports dyspnea on exertion, Reports irregular heart beat, Reports shortness of breath Respiratory: Reports as per HPI Gastrointestinal: Reports as per HPI Genitourinary: Reports as per HPI Musculoskeletal: Reports as per HPI Musculoskeletal: absent: ankle pain, ankle stiffness, ankle swelling Integumentary: Reports as per HPI Neurological: Reports as per HPI Psychiatric: Reports as per HPI Endocrine: Reports as per HPI Hematologic/Lymphatic: Reports as per HPI Allergic/Immunologic: Reports as per HPI Past Medical History Past Medical History: Asthma, Coronary Artery Disease (CAD), Diabetes Mellitus, GERD/Reflux, GI Bleed, Hyperlipidemia, Hypertension, Myocardial Infarction (PR) Additional Past Medical History / Comment(s): see Dr Vaughan's H&P,ASTHMA CHILD, [place] X2, CAD status post PCI 2 ischemic cardiopathy status post AICD, pt stated "esophageal stricture status post esophageal dilatation resulted from acid reflux and scar tissue" Last Myocardial Infarction Date:: 2007 History of Any Multi-Drug Resistant Organisms: None Reported Past Surgical History: AICD, Heart Catheterization With Stent, Orthopedic Surgery Additional Past Surgical History / Comment(s): STENT X6, KNEE ARTHROSCOPY/CARDIAC DEFIBRILLATOR INSERTED 2008-lt chest [facility] Past Anesthesia/Blood Transfusion Reactions: No Reported Reaction Additional Past Anesthesia/Blood Transfusion Reaction / Comment(s): no hx blood transfusion Date of Last Stent Placement:: 05-02-2015 Type of Cardiac Device: AICD Device Placement Date:: 2007 Past Psychological History: No Psychological Hx Reported Smoking Status: Never smoker Past Alcohol Use History: None Reported Additional Past Alcohol Use History / Comment(s): quit smoking 2013, started at age 17,<1 ppd Past Drug Use History: None Reported - Past Family History Mother Family Medical History: Coronary Artery Disease (CAD), Hyperlipidemia, Hypertension Father Family Medical History: COPD, Coronary Artery Disease (CAD) Brother(s) Family Medical History: No Reported History Sister(s) Family Medical History: No Reported History Daughter(s) Family Medical History: No Reported History Son(s) Family Medical History: No Reported History Medications and Allergies Home Medications Medication Instructions Recorded Confirmed Type Clopidogrel [Plavix] 75 mg PO DAILY 07/06/14 03/21/22 History Pantoprazole [Protonix] 40 mg PO HS 04/30/15 03/19/22 History Aspirin 162.5 mg PO BID 05/11/19 03/21/22 History Atorvastatin [Lipitor] 40 mg PO DAILY 05/11/19 03/21/22 History Insulin Glargine,Hum.rec.anlog 45 units SQ DAILY 05/11/19 03/19/22 History [Toujeo Solostar] Sacubitril/Valsartan [Entresto 24 1 tab PO BID 05/11/19 03/19/22 History mg-26 mg Tablet] sitaGLIPtin PHOS/metFORMIN HCL 1 tab PO BID 05/11/19 03/19/22 History [Janumet 50-1,000 mg Tablet] ALPRAZolam [Xanax] 0.5 mg PO HS 02/10/22 03/19/22 History Furosemide [Lasix] 20 mg PO DAILY PRN 02/10/22 03/19/22 History Magnesium Oxide [Mag-Ox] 400 mg PO DAILY #90 tab 02/12/22 03/19/22 Rx Mexiletine [Mexitil] 150 mg PO Q8HR #90 cap 02/12/22 03/21/22 Rx Sotalol [Betapace] 120 mg PO BID@0600,1800 #180 tab 02/12/22 03/21/22 Rx carvediloL [Coreg*] 12.5 mg PO BID-W/MEALS #180 tab 02/12/22 03/21/22 Rx Apixaban [Eliquis] 2.5 mg PO BID #60 tab 03/22/22 Rx Allergies Allergy/AdvReac Type Severity Reaction Status Date / Time amoxicillin Allergy Anaphylaxis Verified 04/17/22 19:29 lisinopril Allergy Anaphylaxis Verified 04/17/22 19:29 Penicillins Allergy Anaphylaxis Verified 04/17/22 19:29 Physical Exam Vitals: Vital Signs Temp Pulse Pulse Resp BP BP Pulse Ox 04/18/22 05:00 86 15 136/83 95 04/18/22 04:00 98.1 F 78 16 140/81 97 04/18/22 03:00 67 16 107/78 96 04/18/22 02:00 67 18 133/76 97 04/18/22 01:00 65 20 133/88 95 04/18/22 00:36 98.3 F 67 18 134/85 94 L 04/18/22 00:00 101 H 16 132/85 91 L 04/17/22 23:13 161 H 16 79/63 97 04/17/22 22:27 161 H 15 110/84 97 04/17/22 22:25 163 H 14 110/65 97 04/17/22 22:23 163 H 16 121/72 97 04/17/22 22:20 163 H 18 107/94 97 04/17/22 20:30 163 H 14 116/78 98 04/17/22 20:15 163 H 14 133/112 98 04/17/22 20:00 165 H 14 127/106 99 04/17/22 19:25 98.2 F 170 H 20 120/88 98 Intake and Output 04/17/22 04/17/22 04/18/22 14:59 22:59 06:59 Output Total 1700 Balance -1700 Output: Urine 1700 Other: Voiding Method Urinal # Voids 0 Weight 106.594 kg 101 kg The patient appeared well nourished and normally developed. Vital signs as documented. Head exam is unremarkable. No scleral icterus or corneal arcus noted. Neck is without jugular venous distension, thyromegaly, or carotid bruits. Carotid upstrokes are brisk bilaterally. Lungs are clear to auscultation and percussion. Cardiac exam reveals the PMI to be normally sized and situated. Rhythm is regular. First and second heart sounds normal. No murmurs, rubs or gallops. Abdominal exam reveals normal bowel sounds, no masses, no organomegaly and no aortic enlargement. Extremities are nonedematous and both femoral and p edal pulses are normal.Examination of the skin revealed no evidence of significant rashes, suspicious appearing nevi or other concerning lesions.Neurologically, the patient is awake and alert and the patient does not have any focal neurological deficit. Cranial nerves are essentially intact. Results - Laboratory Findings CBC and BMP: 04/17/22 19:54 04/17/22 19:54 ABG WBC 9.6 k/uL (3.8-10.6) 04/17/22 19:54 RBC 5.11 m/uL (4.30-5.90) 04/17/22 19:54 Hgb 14.8 gm/dL (13.0-17.5) 04/17/22 19:54 Hct 46.3 % (39.0-53.0) 04/17/22 19:54 MCV 90.6 fL (80.0-100.0) 04/17/22 19:54 MCH 29.0 pg (25.0-35.0) 04/17/22 19:54 MCHC 32.1 g/dL (31.0-37.0) 04/17/22 19:54 RDW 14.1 % (11.5-15.5) 04/17/22 19:54 Plt Count 314 k/uL (150-450) 04/17/22 19:54 MPV 9.8 04/17/22 19:54 Neutrophils % 58 % 04/17/22 19:54 Lymphocytes % 26 % 04/17/22 19:54 Monocytes % 7 % 04/17/22 19:54 Eosinophils % 7 % 04/17/22 19:54 Basophils % 1 % 04/17/22 19:54 Neutrophils # 5.6 k/uL (1.3-7.7) 04/17/22 19:54 Lymphocytes # 2.5 k/uL (1.0-4.8) 04/17/22 19:54 Monocytes # 0.6 k/uL (0-1.0) 04/17/22 19:54 Eosinophils # 0.7 k/uL (0-0.7) 04/17/22 19:54 Basophils # 0.1 k/uL (0-0.2) 04/17/22 19:54 Hypochromasia Moderate 04/17/22 19:54 Sodium 138 mmol/L (137-145) 04/17/22 19:54 Potassium 4.7 mmol/L (3.5-5.1) 04/17/22 19:54 Chloride 102 mmol/L (98-107) 04/17/22 19:54 Carbon Dioxide 25 mmol/L (22-30) 04/17/22 19:54 Anion Gap 11 mmol/L 04/17/22 19:54 BUN 18 mg/dL (9-20) 04/17/22 19:54 Creatinine 1.05 mg/dL (0.66-1.25) 04/17/22 19:54 Est GFR (CKD-EPI)AfAm >90 (>60 ml/min/1.73 sqM) 04/17/22 19:54 Est GFR (CKD-EPI)NonAf 81 (>60 ml/min/1.73 sqM) 04/17/22 19:54 Glucose 165 mg/dL (74-99) H 04/17/22 19:54 POC Glucose (mg/dL) 169 mg/dL (70-110) H 04/18/22 00:36 POC Glu Inpatient Auditor Karol Almeida 04/18/22 00:36 Calcium 9.5 mg/dL (8.4-10.2) 04/17/22 19:54 Magnesium 1.7 mg/dL (1.6-2.3) 04/17/22 19:54 Total Bilirubin 0.5 mg/dL (0.2-1.3) 04/17/22 19:54 AST 52 U/L (17-59) 04/17/22 19:54 ALT 42 U/L (4-49) 04/17/22 19:54 Alkaline Phosphatase 74 U/L (38-126) 04/17/22 19:54 Troponin I 0.028 ng/mL (0.000-0.034) 04/17/22 19:54 NT-Pro-B Natriuret Pep 1560 pg/mL 04/17/22 19:54 Total Protein 7.1 g/dL (6.3-8.2) 04/17/22 19:54 Albumin 4.3 g/dL (3.5-5.0) 04/17/22 19:54 Abnormal lab findings: Abnormal Labs 04/17/22 04/18/22 19:54 00:36 Glucose 165 H POC Glucose (mg/dL) 169 H - Diagnostic Findings Chest x-ray: image reviewed Assessment and Plan Plan: Wide complex tachycardia, symptomatic, failed medical management and the patient was given cardioversion in the emergency department. Current cardiac rhythm is sinus and the patient also is in a right bundle branch block pattern. Cardiology is on the case. The patient was given amiodarone and Cardizem in the emergency department.. On outpatient basis, the patient remains on a combination of Coreg, sotalol, and Mexitil. Coronary artery disease with previous PR. The patient has undergone PCI 2 Ischemic cardiomyopathy with an ejection fraction of 30% History of recurrent DVT and the patient underwent a DVT and PVC ablation. This was done by cardiology on 03/21/2022. The patient also has an AICD in place. During the EP study, the patient was found to have DVT or rigidity from the inferior septal wall of the LV and he was also having frequent PVCs from the inferior wall. Hypertension Hyperlipidemia Diabetes mellitus Bronchial asthma History of esophageal stricture requiring esophageal dilatation Acid reflux Plan Hemodynamically stable at this point in time We'll consult with cardiology. Restart his cardiac medications including Coreg, Mexitil and sotalol at the same doses. May need to restart aspirin and Plavix Restart Entresto Patient is also on Lantus insulin. He'll be placed on a sliding scale insulin coverage for now. Xanax for anxiety Restart Lipitor Cardiology consultation Monitor the ICU for now
[2022-04-18] MEDS ORDERED: FUROSEMIDE 20 MG TAB PO PRN (06:08)
[2022-04-18 06:34] LABS: Basophils % (A) 0 %; Eosinophils % (A) 0 %; HCT 44.6 % (39.0-53.0); HGB 13.8 gm/dL (13.0-17.5); Hypochromasia Marked; Lymphocytes # (A) 0.7 k/uL (1.0-4.8); Lymphocytes % (A) 6 %; MCH 28.6 pg (25.0-35.0); MCV 92.1 fL (80.0-100.0); Mean Platelet Volume 9.8; Monocytes # (A) 0.5 k/uL (0-1.0); Monocytes % (A) 4 %; Neutrophils # (A) 11.4 k/uL (1.3-7.7); Neutrophils % (A) 89 %; Platelet Count 240 k/uL (150-450); RBC 4.84 m/uL (4.30-5.90); RDW 14.2 % (11.5-15.5); WBC 12.8 k/uL (3.8-10.6)
[2022-04-18 06:35] LABS: African American GFR (CKD) >90 (>60 ml/min/1.73 sqM); Anion Gap 14 mmol/L; Blood Urea Nitrogen 21 mg/dL (9-20); Calcium 9.2 mg/dL (8.4-10.2); Carbon Dioxide 26 mmol/L (22-30); Chloride 99 mmol/L (98-107); Glucose 162 mg/dL (74-99); Non-African American GFR(CKD) 82 (>60 ml/min/1.73 sqM); Potassium 4.4 mmol/L (3.5-5.1); Sodium 139 mmol/L (137-145)
--- NOTE | 2022-04-18 08:54 | P.HPIM ---
History of Present Illness This is a pleasant 56 years old male with multiple medical problems including asthma, coronary artery disease status post PCI 2 with history of ischemic cardiomyopathy status post AICD, hypertension, hyperlipidemia, hypothyroidism, iron deficiency anemia and iron treatment, diabetes mellitus, history of GI bleed, Patient presents because of chest pain that started last night about 7 PM about 5/10 in severity associated with breathing difficulty and sweating Currently he is sitting up in chair, with mild respiratory distress, he denies chest pain as 0/10, now much tachypnea or dyspnea. No much coughing He denies any GI or urinary symptoms, no vomiting abdominal pain or diarrhea, no dysuria urgency. No headache weakness numbness. On March 23 he had called with infection and he was at [facility], at that time he had 2 episodes of tachycardia has been evaluated by Dr. Lira. He denies smoking alcohol or illicit drugs. Patient is not on home oxygen. Presents because of chest pain and chest pressure associated with tachycardia with heart rate of 170, he is saturating 95% 6 L of oxygen via nasal cannula Currently vital signs stable, his heart rate is 78-86, patient is afebrile. Labs including CBC, BMP, liver enzymes and troponin looks unremarkable Glucose 165, 169 ProBNP 1560. EKG showing normal sinus rhythm at 70 bpm with right bundle branch block and left anterior fascicular block and left ventricular hypertrophy. QTC is 501 Initial EKG on admission showing tachycardia at 169, it looks like what complex tachycardia Chest x-ray: No acute process. I looked at the chest x-ray by myself and has prominent vascular markings Emergency room patient received amiodarone drip with mild improvement and then Cardizem and troponin was tried to causing hypotension so it was stopped and then cardioversion was done and rhythm switch to sinus after that patient was admitted to the ICU Review of Systems Review of systems CONSTITUTIONAL: No fever, no malaise, no fatigue. HEENT: No recent visual problems or hearing problems. Denied any sore throat. CARDIOVASCULAR: No orthopnea, PND, no palpitations, no syncope. PULMONARY: No shortness of breath, no cough, no hemoptysis. GASTROINTESTINAL: No diarrhea, no nausea, no vomiting, no abdominal pain. Normoactive bowel sounds. NEUROLOGICAL: No headaches, no weakness, no numbness. HEMATOLOGICAL: Denies any bleeding or petechiae. GENITOURINARY: Denies any burning micturition, frequency, or urgency. MUSCULOSKELETAL/RHEUMATOLOGICAL: Denies any joint pain, swelling, or any muscle pain. ENDOCRINE: Denies any polyuria or polydipsia. Past Medical History Past Medical History: Asthma, Coronary Artery Disease (CAD), Diabetes Mellitus, GERD/Reflux, GI Bleed, Hyperlipidemia, Hypertension, Myocardial Infarction (OR) Additional Past Medical History / Comment(s): see Dr Vaughan's H&P,ASTHMA CHILD, [place] X2, CAD status post PCI 2 ischemic cardiopathy status post AICD, pt stated "esophageal stricture status post esophageal dilatation resulted from acid reflux and scar tissue" Last Myocardial Infarction Date:: 2007 History of Any Multi-Drug Resistant Organisms: None Reported Past Surgical History: AICD, Heart Catheterization With Stent, Orthopedic Surgery Additional Past Surgical History / Comment(s): STENT X6, KNEE ARTHROSCOPY/CARDIAC DEFIBRILLATOR INSERTED 2007- chest [facility] Past Anesthesia/Blood Transfusion Reactions: No Reported Reaction Additional Past Anesthesia/Blood Transfusion Reaction / Comment(s): no hx blood transfusion Date of Last Stent Placement:: 05-02-2015 Type of Cardiac Device: AICD Device Placement Date:: 2007 Past Psychological History: No Psychological Hx Reported Smoking Status: Never smoker Past Alcohol Use History: None Reported Additional Past Alcohol Use History / Comment(s): quit smoking 2013, started at age 17,<1 ppd Past Drug Use History: None Reported - Past Family History Mother Family Medical History: Coronary Artery Disease (CAD), Hyperlipidemia, Hypertension Father Family Medical History: COPD, Coronary Artery Disease (CAD) Brother(s) Family Medical History: No Reported History Sister(s) Family Medical History: No Reported History Daughter(s) Family Medical History: No Reported History Son(s) Family Medical History: No Reported History Medications and Allergies Home Medications Medication Instructions Recorded Confirmed Type Clopidogrel [Plavix] 75 mg PO DAILY 07/06/14 04/18/22 History Pantoprazole [Protonix] 40 mg PO HS 04/30/15 04/18/22 History Aspirin 162.5 mg PO BID 05/11/19 04/18/22 History Atorvastatin [Lipitor] 40 mg PO DAILY 05/11/19 04/18/22 History Insulin Glargine,Hum.rec.anlog 45 units SQ DAILY 05/11/19 04/18/22 History [Susanna Hydelolaar] Sacubitril/Valsartan [Entresto 24 1 tab PO BID 05/11/19 04/18/22 History mg-26 mg Tablet] sitaGLIPtin PHOS/metFORMIN HCL 1 tab PO BID 05/11/19 04/18/22 History [Janumet 50-1,000 mg Tablet] ALPRAZolam [Xanax] 0.5 mg PO HS 02/10/22 04/18/22 History Furosemide [Lasix] 20 mg PO DAILY PRN 02/10/22 04/18/22 History Magnesium Oxide [Mag-Ox] 400 mg PO DAILY #90 tab 02/12/22 04/18/22 Rx Sotalol [Betapace] 120 mg PO BID@0600,1800 #180 tab 02/12/22 04/18/22 Rx carvediloL [Coreg*] 12.5 mg PO BID-W/MEALS #180 tab 02/12/22 04/18/22 Rx Apixaban [Eliquis] 2.5 mg PO BID #60 tab 03/22/22 04/18/22 Rx Mexiletine [Mexitil] 300 mg PO Q8HR 04/18/22 04/18/22 History Allergies Allergy/AdvReac Type Severity Reaction Status Date / Time amoxicillin Allergy Anaphylaxis Verified 04/17/22 19:29 lisinopril Allergy Anaphylaxis Verified 04/17/22 19:29 Penicillins Allergy Anaphylaxis Verified 04/17/22 19:29 Physical Exam Vitals: Vital Signs Temp Pulse Pulse Resp BP BP Pulse Ox 04/18/22 05:00 86 15 136/83 95 04/18/22 04:00 98.1 F 78 16 140/81 97 04/18/22 03:00 67 16 107/78 96 04/18/22 02:00 67 18 133/76 97 04/18/22 01:00 65 20 133/88 95 04/18/22 00:36 98.3 F 67 18 134/85 94 L 04/18/22 00:00 101 H 16 132/85 91 L 04/17/22 23:13 161 H 16 79/63 97 04/17/22 22:27 161 H 15 110/84 97 04/17/22 22:25 163 H 14 110/65 97 04/17/22 22:23 163 H 16 121/72 97 04/17/22 22:20 163 H 18 107/94 97 04/17/22 20:30 163 H 14 116/78 98 04/17/22 20:15 163 H 14 133/112 98 04/17/22 20:00 165 H 14 127/106 99 04/17/22 19:25 98.2 F 170 H 20 120/88 98 Intake and Output 04/17/22 04/17/22 04/18/22 14:59 22:59 06:59 Output Total 1700 Balance -1700 Output: Urine 1700 Other: Voiding Method Urinal # Voids 0 Weight 106.594 kg 101 kg GENERAL: The patient is alert and oriented x3, not in any acute distress. Well developed, well nourished. HEENT: Pupils are round and equally reacting to light. EOMI. No scleral icterus. No conjunctival pallor. Normocephalic, atraumatic. No pharyngeal erythema. No thyromegaly. CARDIOVASCULAR: S1 and S2 present. No murmurs, rubs, or gallops. PULMONARY: Chest is clear to auscultation, no wheezing or crackles. ABDOMEN: Soft, nontender, nondistended, normoactive bowel sounds. No palpable organomegaly. MUSCULOSKELETAL: No joint swelling or deformity. EXTREMITIES: No cyanosis, clubbing, or pedal edema. NEUROLOGICAL: Gross neurological examination did not reveal any focal deficits. SKIN: No rashes. no petechiae. Results CBC & Chem 7: 04/18/22 05:22 04/18/22 05:22 Labs: Abnormal Lab Results - Last 24 Hours (Table) 04/17/22 04/18/22 Range/Units 19:54 00:36 Glucose 165 H (74-99) mg/dL POC Glucose (mg/dL) 169 H (70-110) mg/dL Thrombosis Risk Factor Assmnt - Choose All That Apply Each Factor Represents 1 point: Age 41-60 years Other Risk Factors: No Thrombosis Risk Factor Assessment Total Risk Factor Score: 1 Thrombosis Risk Factor Assessment Level: Low Risk Assessment and Plan Assessment: Chest pain, could be related to cardiac causes Wide complex tachycardia, V. tach versus SVT and right bundle-branch block, stat us post cardioversion History of coronary artery disease status post PCI 2 Ischemic cardiomyopathy status post AICD Hypertension Hyperlipidemia Diabetes mellitus History of GI bleed and iron deficiency anemia History of asthma, not an active tissue Plan: Keep the patient in the ICU Patient Is status post Lasix IV 1 Resume medication and GORDON inhibitor Cardiology consult Critical care team consult Labs and medication were reviewed.. Continue same treatment. Continue with symptomatic treatment. Resume home medication. Monitor labs and vitals. DVT and GI prophylaxis. Further recommendations as per clinical course of the patient DVT prophylaxis: Eliquis was held, deferred management of deliverer pharmacy GI Prophylaxis: Ppi Prognosis is guarded
--- NOTE | 2022-04-18 09:51 | P.CRDCN ---
History of Present Illness Consult date: 04/18/22 Reason for Consult (text): Ventricular fibrillation History of present illness: The patient is a 56-year-old male presented to the hospital with ventricular tachycardia. The patient has a known history and has been having runs of ventricular tachycardia over the last several months. He's had several AICD shocks, therefore underwent successful bundle branch reentry VT ablation/ablation of the right bundle with residual right bundle-branch block. Unfortunately the patient developed COVID-19 in the month of March postoperatively and continued to have brief runs of ventricular tachycardia. His mexiletine was increased and he was scheduled to undergo NIPS procedure next week. The patient presented to the emergency room with heart racing and diaphoresis. He states this did not feel quite as bad as previous episodes of ventricular tachycardia, however his AICD did not fire. Currently his threshold settings are set at 175 and his heart rate was in the high 160s on arrival. In the emergency room he was given adenosine which did not convert his rhythm. He was then given Cardizem and amiodarone bolus prior to undergoing defibrillation. DIAGNOSTICS: Initial EKG showed ventricular tachycardia Follow-up EKG shows sinus rhythm with right bundle branch block and left anterior fascicular block Chest x-ray shows no active cardiopulmonary process Vitals: Blood pressure 139/86, pulse 77, respiratory rate 17, SpO2 95% on room air, afebrile Lab data: WBC 12.8, hemoglobin 13.8, hematocrit 44.6, platelet 240, sodium 139, potassium 4.4, BUN 21, creatinine 1.03, AST 52, ALT 42, troponin 0.02, BNP 1560 Limited echocardiogram 03/22/2022 shows LV function less than 20% REVIEW OF SYSTEMS: No fever or chills. No cough or expectoration. No diaphoresis. Patient denies headache, dizziness, blurred vision, double vision. Patient denies any stomach discomfort. No nausea, vomiting. No hematochezia. No hematemesis. Denies any black stools or blood in his stools. Denies dysuria or hematuria. No muscle weakness or numbness. No dyspnea or orthopnea. No chest pain or chest pressure. PHYSICAL EXAMINATION: This is a 56-year-old male in no apparent distress at the time of my examination. HEENT: Head is atraumatic, normocephalic. Pupils are equal, round. Sclerae anicteric. Conjunctivae are clear. Mucous membranes of the mouth are moist. Neck is supple. There is no jugular venous distention. No carotid bruit is heard. CHEST EXAMINATION: Lungs are clear to auscultation. No chest wall tenderness is noted on palpation or with deep breathing. HEART EXAMINATION: Heart regular rate and rhythm. S1, S2 heard. No murmurs, gallops or rub. ABDOMEN: Soft, nontender. Bowel sounds are heard. No organomegaly noted. EXTREMITIES: 2+ peripheral pulses with no evidence of peripheral edema and no calf tenderness noted. NEUROLOGIC EXAMINATION: Patient is awake, alert and oriented x3. FINAL ASSESSMENT AND PLAN: Ventricular tachycardia Ischemic cardiomyopathy status post AICD History of coronary artery disease History of hypertension History of dyslipidemia PLAN: Avoid amiodarone and calcium channel blockers Hold sotalol temporarily Continue mexiletine and beta blockers Plan for EP study and attentional ablation for ventricular tachycardia versus bundle branch reentry tachycardia I am dictating on behalf of Dr Derik Vaughan's history/physical and assessment/plan. Past Medical History Past Medical History: Asthma, Coronary Artery Disease (CAD), Diabetes Mellitus, GERD/Reflux, GI Bleed, Hyperlipidemia, Hypertension, Myocardial Infarction ([place]) Additional Past Medical History / Comment(s): see Dr Vaughan's H&P,ASTHMA CHILD, [place] X2, CAD status post PCI 2 ischemic cardiopathy status post AICD, pt stated "esophageal stricture status post esophageal dilatation resulted from acid reflux and scar tissue" Last Myocardial Infarction Date:: 2007 History of Any Multi-Drug Resistant Organisms: None Reported Past Surgical History: AICD, Heart Catheterization With Stent, Orthopedic Luke rgery Additional Past Surgical History / Comment(s): STENT X6, KNEE ARTHROS COPY/CARDIAC DEFIBRILLATOR INSERTED 2008-lt chest [facility] Past Anesthesia/Blood Transfusion Reactions: No Reported Reaction Additional Past Anesthesia/Blood Transfusion Reaction / Comment(s): no hx blood transfusion Date of Last Stent Placement:: 05-02-2015 Type of Cardiac Device: AICD Device Placement Date:: 2007 Past Psychological History: No Psychological Hx Reported Smoking Status: Never smoker Past Alcohol Use History: None Reported Additional Past Alcohol Use History / Comment(s): quit smoking 2013, started at age 17,<1 ppd Past Drug Use History: None Reported - Past Family History Mother Family Medical History: Coronary Artery Disease (CAD), Hyperlipidemia, Hypertension Father Family Medical History: COPD, Coronary Artery Disease (CAD) Brother(s) Family Medical History: No Reported History Sister(s) Family Medical History: No Reported History Daughter(s) Family Medical History: No Reported History Son(s) Family Medical History: No Reported History Medications and Allergies Home Medications Medication Instructions Recorded Confirmed Type Clopidogrel [Plavix] 75 mg PO DAILY 07/06/14 04/18/22 History Pantoprazole [Protonix] 40 mg PO HS 04/30/15 04/18/22 History Aspirin 162.5 mg PO BID 05/11/19 04/18/22 History Atorvastatin [Lipitor] 40 mg PO DAILY 05/11/19 04/18/22 History Insulin Glargine,Hum.rec.anlog 45 units SQ DAILY 05/11/19 04/18/22 History [Toujeo Solostar] Sacubitril/Valsartan [Entresto 24 1 tab PO BID 05/11/19 04/18/22 History mg-26 mg Tablet] sitaGLIPtin PHOS/metFORMIN HCL 1 tab PO BID 05/11/19 04/18/22 History [Janumet 50-1,000 mg Tablet] ALPRAZolam [Xanax] 0.5 mg PO HS 02/10/22 04/18/22 History Furosemide [Lasix] 20 mg PO DAILY PRN 02/10/22 04/18/22 History Magnesium Oxide [Mag-Ox] 400 mg PO DAILY #90 tab 02/12/22 04/18/22 Rx Sotalol [Betapace] 120 mg PO BID@0600,1800 #180 tab 02/12/22 04/18/22 Rx carvediloL [Coreg*] 12.5 mg PO BID-W/MEALS #180 tab 02/12/22 04/18/22 Rx Apixaban [Eliquis] 2.5 mg PO BID #60 tab 03/22/22 04/18/22 Rx Mexiletine [Mexitil] 300 mg PO Q8HR 04/18/22 04/18/22 History Allergies Allergy/AdvReac Type Severity Reaction Status Date / Time amoxicillin Allergy Anaphylaxis Verified 04/17/22 19:29 lisinopril Allergy Anaphylaxis Verified 01/04/23 19:29 Penicillins Allergy Anaphylaxis Verified 04/17/22 19:29 Physical Exam Vitals: Vital Signs Temp Pulse Pulse Resp BP BP Pulse Ox 04/18/22 08:14 97 04/18/22 08:00 98.3 F 77 17 139/86 95 04/18/22 07:00 80 16 142/90 94 L 04/18/22 06:00 86 16 138/81 95 04/18/22 05:00 86 15 136/83 95 04/18/22 04:00 98.1 F 78 16 140/81 97 04/18/22 03:00 67 16 107/78 96 04/18/22 02:00 67 18 133/76 97 04/18/22 01:00 65 20 133/88 95 04/18/22 00:36 98.3 F 67 18 134/85 94 L 04/18/22 00:00 101 H 16 132/85 91 L 04/17/22 23:45 84 15 140/85 93 L 04/17/22 23:42 68 16 152/93 93 L 04/17/22 23:37 80 28 H 146/93 88 L 04/17/22 23:32 163 H 15 166/132 98 04/17/22 23:27 163 H 16 94/59 98 04/17/22 23:13 161 H 16 79/63 97 04/17/22 23:00 163 H 18 78/53 98 04/17/22 22:45 165 H 19 104/68 97 04/17/22 22:30 163 H 18 87/50 97 04/17/22 22:27 161 H 15 110/84 97 04/17/22 22:25 163 H 14 110/65 97 04/17/22 22:23 163 H 16 121/72 97 04/17/22 22:20 163 H 18 107/94 97 04/17/22 22:15 163 H 19 107/94 98 04/17/22 22:00 165 H 20 100/72 97 04/17/22 21:45 163 H 20 76/54 97 04/17/22 21:30 163 H 18 103/75 98 04/17/22 21:15 163 H 20 101/71 98 04/17/22 21:00 163 H 18 86/69 97 04/17/22 20:45 163 H 18 114/78 98 04/17/22 20:30 163 H 14 116/78 98 04/17/22 20:15 163 H 14 133/112 98 04/17/22 20:00 165 H 14 127/106 99 04/17/22 19:25 98.2 F 170 H 20 120/88 98 Intake and Output 04/17/22 04/18/22 04/18/22 22:59 06:59 14:59 Intake Total 500 Output Total 2500 400 Balance -2500 100 Intake: Oral 500 Output: Urine 2500 400 Other: Voiding Method Urinal Urinal # Voids 2 1 Weight 106.594 kg 101 kg Results 04/18/22 05:22 04/18/22 05:22 Cardiac Enzymes 04/17/22 04/17/22 Range/Units 19:54 19:54 AST 52 (17-59) U/L Troponin I 0.028 (0.000-0.034) ng/mL CBC 04/17/22 04/18/22 Range/Units 19:54 05:22 WBC 9.6 12.8 H (3.8-10.6) k/uL RBC 5.11 4.84 (4.30-5.90) m/uL Hgb 14.8 13.8 (13.0-17.5) gm/dL Hct 46.3 44.6 (39.0-53.0) % Plt Count 314 240 (150-450) k/uL Comprehensive Metabolic Panel 04/17/22 04/18/22 Range/Units 19:54 05:22 Sodium 138 139 (137-145) mmol/L Potassium 4.7 4.4 (3.5-5.1) mmol/L Chloride 102 99 (98-107) mmol/L Carbon Dioxide 25 26 (22-30) mmol/L BUN 18 21 H (9-20) mg/dL Creatinine 1.05 1.03 (0.66-1.25) mg/dL Glucose 165 H 162 H (74-99) mg/dL Calcium 9.5 9.2 (8.4-10.2) mg/dL AST 52 (17-59) U/L ALT 42 (4-49) U/L Alkaline Phosphatase 74 (38-126) U/L Total Protein 7.1 (6.3-8.2) g/dL Albumin 4.3 (3.5-5.0) g/dL Current Medications Generic Name Dose Route Start Last Admin Trade Name Freq PRN Reason Stop Dose Admin Albuterol/Ipratropium 3 ml 04/18/22 02:29 Ipratropium-Albuterol 3 Ml Neb INHALATION RT-Q4H PRN Shortness Of Breath Or Wheezing Alprazolam 0.5 mg 04/18/22 21:00 Alprazolam 0.5 Mg Tab PO HS [facility] Alprazolam 0.5 mg 04/18/22 21:00 Alprazolam 0.5 Mg Tab PO HS [facility] Apixaban 2.5 mg 04/18/22 09:00 Apixaban 2.5 Mg Tablet PO BID [facility] Protocol Aspirin 162 mg 04/18/22 09:00 Aspirin 81 Mg PO BID [facility] Atorvastatin Calcium 40 mg 04/18/22 09:00 Atorvastatin 40 Mg Tab PO DAILY [facility] Carvedilol 12.5 mg 04/18/22 17:30 Carvedilol 12.5 Mg Tab PO BID-W/MEALS [facility] Clopidogrel Bisulfate 75 mg 04/18/22 09:00 Clopidogrel 75 Mg Tab PO DAILY [facility] Fentanyl Citrate 25 mcg 04/17/22 23:23 04/17/22 23:23 Fentanyl (Pf) 50 Mcg/Ml 2 Ml Amp IVP 25 mcg ONCE PRN Administration Severe Pain (Scale 7 to 10) Furosemide 20 mg 04/18/22 06:08 Furosemide 20 Mg Tab PO DAILY PRN Edema Magnesium Sulfate/Dextrose 1 100 mls @ 100 mls/hr 04/18/22 09:00 gm/ IV Solution IVPB 04/18/22 10:59 Q1H [facility] Linagliptin 1 mg 04/18/22 09:00 Linagliptin 5 Mg Tablet PO DAILY [facility] Metformin HCl 1,000 mg 04/18/22 09:00 Metformin 500 Mg Tab PO BID [facility] Mexiletine HCl 200 mg 04/18/22 16:00 Mexiletine 200 Mg Cap PO Q8HR [facility] Naloxone HCl 0.2 mg 04/17/22 23:55 Naloxone 0.4 Mg/Ml 1 Ml Vial IV Q2M PRN Opioid Reversal Pantoprazole Sodium 40 mg 04/18/22 21:00 Pantoprazole 40 Mg Tablet PO HS [facility] Sacubitril/Valsartan 1 each 04/18/22 09:00 Sacubitril/Valsartan 24 Mg-26 Mg Tablet PO BID [facility] Intake and Output 04/17/22 04/18/22 04/18/22 22:59 06:59 14:59 Intake Total 500 Output Total 2500 400 Balance -2500 100 Intake: Oral 500 Output: Urine 2500 400 Other: Voiding Method Urinal Urinal # Voids 2 1 Weight 106.594 kg 101 kg 04/18/22 05:22 04/18/22 05:22
[2022-04-18] MEDS: ASPIRIN 81 MG PO SCH ×2 (10:05→21:31)
[2022-04-18] MEDS: ATORVASTATIN 40 MG TAB PO SCH (10:05)
[2022-04-18] MEDS: CLOPIDOGREL 75 MG TAB PO SCH (10:05)
[2022-04-18] MEDS: metFORMIN 500 MG TAB PO SCH ×2 (10:05→21:31)
[2022-04-18] MEDS: LINAGLIPTIN 5 MG TABLET PO SCH (10:06)
[2022-04-18] MEDS: MAGNESIUM SULFATE-D5W PMX 1 GM in DEXTROSE/WATER 1 100ML.BAG IVPB SCH ×2 (10:06→11:14)
[2022-04-18] MEDS: SACUBITRIL/VALSARTAN 24 MG-26 MG TABLET PO SCH ×2 (10:06→21:31)
[2022-04-18] MEDS: LIDOCAINE-D5W PMX 2G/250ML 2,000 MG in DEXTROSE/WATER 1 250ML.BAG IV SCH (11:13)
[2022-04-18] MEDS: APIXABAN 2.5 MG TABLET PO SCH ×2 (11:14→21:31)
[2022-04-18 11:38] LABS: Glucose,Whole Blood 222 mg/dL (70-110)
[2022-04-18] MEDS ORDERED: DEXTROSE 50% SYRINGE 50 ML IVP PRN ×2 (12:04)
[2022-04-18] MEDS: INSULIN ASPART (NovoLOG) 100 UNIT/ML VIAL SQ SCH ×3 (12:11→20:44)
[2022-04-18] MEDS ORDERED: MEXILETINE 200 MG CAP PO SCH (16:00)
[2022-04-18] MEDS: MEXILETINE 150 MG CAP PO SCH (16:14)
[2022-04-18 16:37] LABS: Glucose,Whole Blood 179 mg/dL (70-110)
[2022-04-18] MEDS: carvediloL 12.5 MG TAB PO SCH (18:14)
[2022-04-18 20:23] LABS: Glucose,Whole Blood 171 mg/dL (70-110)
[2022-04-18] MEDS: ALPRAZolam 0.5 MG TAB PO SCH ×2 (21:00→21:31)
[2022-04-18] MEDS: PANTOPRAZOLE 40 MG TABLET PO SCH (21:31)
[2022-04-19] MEDS: MEXILETINE 150 MG CAP PO SCH ×4 (00:49→23:19)
--- NOTE | 2022-04-19 06:15 | P.PN ---
Subjective Progress Note Date: 04/19/22 This is a 56-year-old male patient with known history of ischemic cardiomyopathy with an ejection fraction of 30% and the patient has history of recurrent ventricular tachycardia with previous ablation and the patient has a single- chamber ICD and he has history of previous recurrent ICD shocks. The patient was in the hospital back in March 2022. At that time, the patient was seen by cardiology, the patient underwent a successful bundle branch reentry SVT ablation and ablation of a right bundle with residual RBB and normal AV function was identified. The patient had successful PTCA ablation originating from the anteroseptal Alerted muscle. There was an admission along the inferior wall along the LV scar. The patient was ultimately discharged home on a combination of Coreg 25 mg by mouth twice a day, sotalol 120 mg by mouth twice a day, Mexitil 150 mg by mouth every 8 hours, Eliquis 2.5 mg by mouth daily. Is already on Plavix and ASA and Entresto regarding his cardio myopathy. The elizabeth delgado presented to the emergency department yesterday with symptoms of shortness of breath and he was tachycardic. His EKG showed a wide complex tachycardia with a heart rate ranging between 160 and 180 and underlying rhythm was not clear. Could be an aberrant rhythm. Possibility of V. tach and IV completely excluded. The patient was hemodynamically stable. BP was 120/80. Normal pulse ox. Afebrile. He was however significantly tachycardic. The patient was cardioverted after being given etomidate and was given 75 J cardioversion and converted into normal sinus rhythm. Motor the patient was also given amiodarone in the emergency room a trial basis and this did not affect his cardiac rhythm. He was monitored for a total of 2 hours. He was tried on Cardizem drip and amiodarone was discontinued. The blood pressure dropped and Cardizem drip had to be discontinued. Ultimately, this led into a successful cardioversion. His chest x-ray is clear. He does have some hepatomegaly. There is no visible is at 9.6 with a hemoglobin of 14.8 and a platelet count of 314. Electrodes are normal. Troponins at 0.028 and his proBNP level is 1560. Most recent EKG from this morning showed a sinus rhythm with a right bundle branch block pattern. The patient is also diabetic and has hyperlipidemia in addition to his underlying cardiomyopathy. 04/19/2022, the patient is stable and the patient's cardiac rhythm is sinus with a bundle branch block pattern. No further cardiac arrhythmias over the past 24 hours. The patient was seen by cardiology. The patient was restarted on Coreg 12.5 mg by mouth twice a day and Mexitil 150 mg every 8 hours. Rest of the cardiac medications have been resumed. The patient is also noted to coagulation with Eliquis 2.5 mg twice a day and is also on Plavix. He is maintained on Lasix 20 mg by mouth daily. He is on 3 L of oxygen by nasal cannula with pulse ox of 96%. Pulse ox on room air is 94%. Patient was seen by electrophysiology and the plan is to consider another ablation. Note that during this time, the patient was started on IV lidocaine infusion for suppression of the ventricular tachycardia. Based on cardiology's opinion, the rhythm was a question was a sustained monomorphic ventricular tachycardia with a rate of 160-170. Based on that, another ablation study Objective - Vital Signs Vital signs: Vital Signs Temp 97.5 F L 04/19/22 04:00 Pulse 71 04/19/22 05:00 Resp 14 04/19/22 05:00 BP 124/86 04/19/22 05:00 Pulse Ox 96 04/19/22 05:00 FiO2 Intake & Output 04/18/22 04/18/22 04/19/22 06:59 18:59 06:59 Intake Total 2200 Output Total 2500 1600 500 Balance -2500 600 -500 Weight 101 kg Intake: IV 200 Magnesium Sulfate-D5w Pmx 200 1 gm In Dextrose/Water 1 100ml.bag @ 100 mls/hr IVPB Q1H [facility] Rx#: [id number] Oral 2000 Output: Urine 2500 1600 500 Other: Voiding Method Urinal Urinal Urinal # Voids 2 1 0 - Exam The patient appeared well nourished and normally developed. Vital signs as documented. Head exam is unremarkable. No scleral icterus or corneal arcus noted. Neck is without jugular venous distension, thyromegaly, or carotid bruits. Carotid upstrokes are brisk bilaterally. Lungs are clear to auscultation and percussion. Cardiac exam reveals the PMI to be normally sized and situated. Rhythm is regular. First and second heart sounds normal. No murmurs, rubs or gallops. Abdominal exam reveals normal bowel sounds, no masses, no organomegaly and no aortic enlargement. Extremities are nonedematous and both femoral and pedal pulses are normal.Examination of the skin revealed no evidence of significant rashes, suspicious appearing nevi or other concerning lesions.Neurologically, the patient is awake and alert and the patient does not have any focal neurological deficit. Cranial nerves are essentially intact. - Labs CBC & Chem 7: 04/18/22 05:22 04/18/22 05:22 Labs: Abnormal Lab Results - Last 24 Hours (Table) 04/18/22 04/18/22 04/18/22 Range/Units 05:22 05:22 05:22 WBC 12.8 H (3.8-10.6) k/uL Neutrophils # 11.4 H (1.3-7.7) k/uL Lymphocytes # 0.7 L (1.0-4.8) k/uL BUN 21 H (9-20) mg/dL Glucose 162 H (74-99) mg/dL POC Glucose (mg/dL) (70-110) mg/dL Hemoglobin A1c 6.6 H (0.0-6.0) % 04/18/22 04/18/22 04/18/22 Range/Units 11:36 16:36 20:22 WBC (3.8-10.6) k/uL Neutrophils # (1.3-7.7) k/uL Lymphocytes # (1.0-4.8) k/uL BUN (9-20) mg/dL Glucose (74-99) mg/dL POC Glucose (mg/dL) 222 H 179 H 171 H (70-110) mg/dL Hemoglobin A1c (0.0-6.0) % Assessment and Plan Plan: Wide complex tachycardia/monomorphic VT , symptomatic, failed medical management and the patient was given cardioversion in the emergency department. Current cardiac rhythm is sinus and the patient also is in a right bundle branch block pattern. Cardiology is on the case. The patient is currently on IV lidocaine drip. The patient is also on Coreg and Mexitil. The plan is to undergo another ablation. For now, his cardiac rhythm is sinus. Coronary artery disease with previous VT. The patient has undergone PCI 2 Ischemic cardiomyopathy with an ejection fraction of 30% History of recurrent DVT and the patient underwent a DVT and PVC ablation. This was done by cardiology on 03/21/2022. The patient also has an AICD in place. During the EP study, the patient was found to have DVT or rigidity from the inferior septal wall of the LV and he was also having frequent PVCs from the inferior wall. Hypertension Hyperlipidemia Diabetes mellitus Bronchial asthma History of esophageal stricture requiring esophageal dilatation Acid reflux Plan Hemodynamically stable at this point in time IV lidocaine Coreg, Mexitil to be continued aspirin and Plavix Entresto Eliquis 2.5 BID Patient is also on Lantus insulin. He'll be placed on a sliding scale insulin coverage for now. Xanax for anxiety Restart Lipitor Cardiology consultation appreciated Monitor the ICU for now
[2022-04-19 06:20] LABS: Glucose,Whole Blood 118 mg/dL (70-110)
[2022-04-19] MEDS: INSULIN ASPART (NovoLOG) 100 UNIT/ML VIAL SQ SCH ×4 (06:38→21:12)
[2022-04-19] MEDS: carvediloL 12.5 MG TAB PO SCH ×2 (06:41→17:58)
[2022-04-19 07:05] LABS: Basophils % (A) 0 %; Eosinophils % (A) 0 %; HCT 39.8 % (39.0-53.0); HGB 12.6 gm/dL (13.0-17.5); Hypochromasia Slight; Lymphocytes # (A) 1.7 k/uL (1.0-4.8); Lymphocytes % (A) 14 %; MCH 28.4 pg (25.0-35.0); MCHC 31.7 g/dL (31.0-37.0); MCV 89.5 fL (80.0-100.0); Mean Platelet Volume 10.1; Monocytes # (A) 0.6 k/uL (0-1.0); Monocytes % (A) 5 %; Neutrophils # (A) 9.1 k/uL (1.3-7.7); Neutrophils % (A) 78 %; Platelet Count 196 k/uL (150-450); RBC 4.44 m/uL (4.30-5.90); RDW 14.4 % (11.5-15.5); WBC 11.7 k/uL (3.8-10.6)
[2022-04-19 07:08] LABS: African American GFR (CKD) >90 (>60 ml/min/1.73 sqM); Anion Gap 9 mmol/L; Blood Urea Nitrogen 20 mg/dL (9-20); Calcium 8.8 mg/dL (8.4-10.2); Carbon Dioxide 29 mmol/L (22-30); Chloride 97 mmol/L (98-107); Glucose 104 mg/dL (74-99); Magnesium 1.6 mg/dL (1.6-2.3); Non-African American GFR(CKD) >90 (>60 ml/min/1.73 sqM); Potassium 4.2 mmol/L (3.5-5.1); Sodium 135 mmol/L (137-145)
[2022-04-19] MEDS ORDERED: Magnesium Replacement Protocol 1 EACH MISC MISCELLANE PRN (07:18)
[2022-04-19] MEDS: MAGNESIUM SULFATE-D5W PMX 1 GM in DEXTROSE/WATER 1 100ML.BAG IVPB SCH ×2 (09:16→13:09)
[2022-04-19] MEDS: APIXABAN 2.5 MG TABLET PO SCH ×2 (09:16→21:18)
[2022-04-19] MEDS: SACUBITRIL/VALSARTAN 24 MG-26 MG TABLET PO SCH ×2 (09:17→21:18)
[2022-04-19] MEDS: LINAGLIPTIN 5 MG TABLET PO SCH (09:17)
[2022-04-19] MEDS: ATORVASTATIN 40 MG TAB PO SCH (09:17)
[2022-04-19] MEDS: FUROSEMIDE 20 MG TAB PO SCH (09:17)
[2022-04-19] MEDS: metFORMIN 500 MG TAB PO SCH ×2 (09:17→21:18)
[2022-04-19] MEDS: CLOPIDOGREL 75 MG TAB PO SCH (09:17)
[2022-04-19] MEDS: ASPIRIN 81 MG PO SCH ×2 (09:17→21:18)
--- NOTE | 2022-04-19 09:48 | P.PN ---
Subjective Progress Note Date: 04/19/22 The patient is a 56-year-old male who is currently admitted to the hospital with recurrent ventricular tachycardia. He was given multiple antiarrhythmic medications in the emergency room, but ultimately underwent cardioversion for sustained monomorphic ventricular tachycardia. During defibrillation, the patient likely aspirated and therefore was given steroids and supplemental oxygen. Yesterday the patient was started on lidocaine drip and it was recommended to continue mexiletine. Sotalol currently on hold in addition to avoiding any additional amiodarone or calcium channel blockers. The patient was interviewed and examined. No chest pain overnight. He states he has a sore throat and some difficulty taking in deep breaths. No palpitations. GENERAL: Well-appearing, well-nourished and in no acute distress. NECK: Supple without JVD or thyromegaly. LUNGS: Breath sounds diminished to auscultation bilaterally. Respiration equal and unlabored. No wheezes, rales or rhonchi. HEART: Regular rate and rhythm without murmurs, rubs or gallops. S1 and S2 heard. EXTREMITIES: Normal range of motion, no edema. No clubbing or cyanosis. Peripheral pulses intact and strong. VITALS: Blood pressure 134/85, pulse 86, respiratory rate 14, SpO2 94% on 2 L nasal cannula TELEMETRY: Sinus rhythm overnight LABS: WBC 11.7, hemoglobin 12.6, hematocrit 39.8, platelet 196, sodium 135, potassium 4.2, BUN 20, creatinine 0.85, magnesium 1.6 FINAL ASSESSMENT AND PLAN: Ventricular tachycardia Ischemic cardiomyopathy status post AICD Possible aspiration History of coronary artery disease History of hypertension History of dyslipidemia PLAN: Continue lidocaine drip Continue by mouth mexiletine Supplement electrolytes per protocol Continue to monitor respiratory status Plan for EP study and ablation on Friday I am dictating on behalf of Dr Derik Vaughan's history/physical and assessment/plan. Objective - Vital Signs Vital signs: Vital Signs Temp 97.7 F 04/19/22 08:00 Pulse 86 04/19/22 09:00 Resp 14 04/19/22 09:00 BP 134/85 04/19/22 09:00 Pulse Ox 91 L 04/19/22 09:00 FiO2 Intake & Output 04/18/22 04/19/22 04/19/22 18:59 06:59 18:59 Intake Total 2200 600 Output Total 1600 1300 400 Balance 600 -1300 200 Intake: IV 200 100 Magnesium Sulfate-D5w Pmx 200 100 1 gm In Dextrose/Water 1 100ml.bag @ 100 mls/hr IVPB Q1H [facility] Rx#: [id number] Oral 2000 500 Output: Urine 1600 1300 400 Other: Voiding Method Urinal Urinal Urinal # Voids 1 1 0 - Labs CBC & Chem 7: 04/19/22 06:13 04/19/22 06:13 Labs: Abnormal Lab Results - Last 24 Hours (Table) 04/18/22 04/18/22 04/18/22 Range/Units 05:22 11:36 16:36 WBC (3.8-10.6) k/uL Hgb (13.0-17.5) gm/dL Neutrophils # (1.3-7.7) k/uL Sodium (137-145) mmol/L Chloride (98-107) mmol/L Glucose (74-99) mg/dL POC Glucose (mg/dL) 222 H 179 H (70-110) mg/dL Hemoglobin A1c 6.6 H (0.0-6.0) % 04/18/22 04/19/22 04/19/22 Range/Units 20:22 06:13 06:13 WBC 11.7 H (3.8-10.6) k/uL Hgb 12.6 L (13.0-17.5) gm/dL Neutrophils # 9.1 H (1.3-7.7) k/uL Sodium 135 L (137-145) mmol/L Chloride 97 L (98-107) mmol/L Glucose 104 H (74-99) mg/dL POC Glucose (mg/dL) 171 H (70-110) mg/dL Hemoglobin A1c (0.0-6.0) % 04/19/22 Range/Units 06:19 WBC (3.8-10.6) k/uL Hgb (13.0-17.5) gm/dL Neutrophils # (1.3-7.7) k/uL Sodium (137-145) mmol/L Chloride (98-107) mmol/L Glucose (74-99) mg/dL POC Glucose (mg/dL) 118 H (70-110) mg/dL Hemoglobin A1c (0.0-6.0) %
[2022-04-19 11:18] LABS: Glucose,Whole Blood 123 mg/dL (70-110)
[2022-04-19] MEDS: LIDOCAINE-D5W PMX 2G/250ML 2,000 MG in DEXTROSE/WATER 1 250ML.BAG IV SCH (16:00)
--- NOTE | 2022-04-19 16:40 | P.PN ---
Subjective Progress Note Date: 04/19/22 56 years old male with multiple medical problems including asthma, coronary artery disease status post PCI 2 with history of ischemic cardiomyopathy status post AICD, hypertension, hyperlipidemia, hypothyroidism, iron deficiency anemia and iron treatment, diabetes mellitus, history of GI bleed, Patient presents because of chest pain that started last night about 7 PM about 5/10 in severity associated with breathing difficulty and sweating Currently he is sitting up in chair, with mild respiratory distress, he denies chest pain as 0/10, now much tachypnea or dyspnea. No much coughing He denies any GI or urinary symptoms, no vomiting abdominal pain or diarrhea, no dysuria urgency. No headache weakness numbness. On March 23 he had called with infection and he was at [facility], at that time he had 2 episodes of tachycardia has been evaluated by Dr. Lira. He denies smoking alcohol or illicit drugs. Patient is not on home oxygen. Presents because of chest pain and chest pressure associated with tachycardia with heart rate of 170, he is saturating 95% 6 L of oxygen via nasal cannula Currently vital signs stable, his heart rate is 78-86, patient is afebrile. Labs including CBC, BMP, liver enzymes and troponin looks unremarkable Glucose 165, 169 ProBNP 1560. EKG showing normal sinus rhythm at 70 bpm with right bundle branch block and left anterior fascicular block and left ventricular hypertrophy. QTC is 501 Initial EKG on admission showing tachycardia at 169, it looks like what complex tachycardia Chest x-ray: No acute process. I looked at the chest x-ray by myself and has prominent vascular markings Emergency room patient received amiodarone drip with mild improvement and then Cardizem and troponin was tried to causing hypotension so it was stopped and then cardioversion was done and rhythm switch to sinus after that patient was admitted to the ICU Objective - Vital Signs Vital signs: Vital Signs Temp 97.7 F 04/19/22 08:00 Pulse 86 04/19/22 10:00 Resp 15 04/19/22 10:00 BP 143/90 04/19/22 10:00 Pulse Ox 92 L 04/19/22 10:00 FiO2 Intake & Output 04/18/22 04/19/22 04/19/22 18:59 06:59 18:59 Intake Total 2200 700 Output Total 1600 1300 400 Balance 600 -1300 300 Intake: IV 200 200 Magnesium Sulfate-D5w Pmx 200 200 1 gm In Dextrose/Water 1 100ml.bag @ 100 mls/hr IVPB Q1H [facility] Rx#: [id number] Oral 2000 500 Output: Urine 1600 1300 400 Other: Voiding Method Urinal Urinal Urinal # Voids 1 1 0 - Exam GENERAL: The patient is alert and oriented x3, not in any acute distress. Well developed, well nourished. HEENT: Pupils are round and equally reacting to light. EOMI. No scleral icterus. No conjunctival pallor. Normocephalic, atraumatic. No pharyngeal erythema. No thyromegaly. CARDIOVASCULAR: S1 and S2 present. No murmurs, rubs, or gallops. PULMONARY: Chest is clear to auscultation, no wheezing or crackles. ABDOMEN: Soft, nontender, nondistended, normoactive bowel sounds. No palpable organomegaly. MUSCULOSKELETAL: No joint swelling or deformity. EXTREMITIES: No cyanosis, clubbing, or pedal edema. NEUROLOGICAL: Gross neurological examination did not reveal any focal deficits. SKIN: No rashes. no petechiae. - Labs CBC & Chem 7: 04/19/22 06:13 04/19/22 06:13 Labs: Abnormal Lab Results - Last 24 Hours (Table) 04/18/22 04/18/22 04/18/22 Range/Units 05:22 11:36 16:36 WBC (3.8-10.6) k/uL Hgb (13.0-17.5) gm/dL Neutrophils # (1.3-7.7) k/uL Sodium (137-145) mmol/L Chloride (98-107) mmol/L Glucose (74-99) mg/dL POC Glucose (mg/dL) 222 H 179 H (70-110) mg/dL Hemoglobin A1c 6.6 H (0.0-6.0) % 04/18/22 04/19/22 04/19/22 Range/Units 20:22 06:13 06:13 WBC 11.7 H (3.8-10.6) k/uL Hgb 12.6 L (13.0-17.5) gm/dL Neutrophils # 9.1 H (1.3-7.7) k/uL Sodium 135 L (137-145) mmol/L Chloride 97 L (98-107) mmol/L Glucose 104 H (74-99) mg/dL POC Glucose (mg/dL) 171 H (70-110) mg/dL Hemoglobin A1c (0.0-6.0) % 04/19/22 Range/Units 06:19 WBC (3.8-10.6) k/uL Hgb (13.0-17.5) gm/dL Neutrophils # (1.3-7.7) k/uL Sodium (137-145) mmol/L Chloride (98-107) mmol/L Glucose (74-99) mg/dL POC Glucose (mg/dL) 118 H (70-110) mg/dL Hemoglobin A1c (0.0-6.0) % Assessment and Plan Assessment: Chest pain, could be related to cardiac causes Wide complex tachycardia, V. tach versus SVT and right bundle-branch block, status post cardioversion History of coronary artery disease status post PCI 2 Ischemic cardiomyopathy status post AICD Hypertension Hyperlipidemia Diabetes mellitus History of GI bleed and iron deficiency anemia History of asthma, not an active tissue Plan: Keep the patient in the ICU Patient Is status post Lasix IV 1 Resume medication and GORDON inhibitor Cardiology consult Critical care team consult Labs and medication were reviewed.. Continue same treatment. Continue with symptomatic treatment. Resume home medication. Monitor labs and vitals. DVT and GI prophylaxis. 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
[2022-04-19 16:41] LABS: Glucose,Whole Blood 141 mg/dL (70-110)
[2022-04-19] MEDS ORDERED: ACETAMINOPHEN TAB 325 MG TAB PO PRN (18:00)
[2022-04-19 20:06] LABS: Glucose,Whole Blood 141 mg/dL (70-110)
[2022-04-19] MEDS: ALPRAZolam 0.5 MG TAB PO SCH ×2 (21:12→23:20)
[2022-04-19] MEDS: PANTOPRAZOLE 40 MG TABLET PO SCH (21:18)
[2022-04-20 04:51] LABS: Basophils # (A) 0.1 k/uL (0-0.2); Basophils % (A) 1 %; Eosinophils # (A) 0.2 k/uL (0-0.7); Eosinophils % (A) 2 %; HGB 13.1 gm/dL (13.0-17.5); Hypochromasia Slight; Lymphocytes # (A) 1.7 k/uL (1.0-4.8); Lymphocytes % (A) 16 %; MCH 28.8 pg (25.0-35.0); MCHC 32.1 g/dL (31.0-37.0); MCV 89.8 fL (80.0-100.0); Monocytes # (A) 0.7 k/uL (0-1.0); Monocytes % (A) 7 %; Neutrophils # (A) 7.8 k/uL (1.3-7.7); Neutrophils % (A) 74 %; Platelet Count 193 k/uL (150-450); RBC 4.56 m/uL (4.30-5.90); RDW 14.4 % (11.5-15.5); WBC 10.6 k/uL (3.8-10.6)
[2022-04-20 05:19] LABS: African American GFR (CKD) >90 (>60 ml/min/1.73 sqM); Anion Gap 6 mmol/L; Blood Urea Nitrogen 18 mg/dL (9-20); Calcium 8.7 mg/dL (8.4-10.2); Carbon Dioxide 34 mmol/L (22-30); Chloride 97 mmol/L (98-107); Glucose 102 mg/dL (74-99); Magnesium 1.7 mg/dL (1.6-2.3); Non-African American GFR(CKD) >90 (>60 ml/min/1.73 sqM); Potassium 4.1 mmol/L (3.5-5.1); Sodium 137 mmol/L (137-145)
[2022-04-20 06:31] LABS: Glucose,Whole Blood 114 mg/dL (70-110)
[2022-04-20] MEDS: carvediloL 12.5 MG TAB PO SCH ×2 (06:36→17:39)
[2022-04-20] MEDS: MAGNESIUM SULFATE-D5W PMX 1 GM in DEXTROSE/WATER 1 100ML.BAG IVPB SCH ×2 (06:37→08:42)
[2022-04-20] MEDS: INSULIN ASPART (NovoLOG) 100 UNIT/ML VIAL SQ SCH ×4 (06:37→20:40)
--- NOTE | 2022-04-20 06:41 | XR ---
EXAMINATION TYPE: XR chest 1V portable DATE OF EXAM: 04/20/2022 CLINICAL HISTORY: Difficulty breathing progress study. TECHNIQUE: Single AP portable upright view of the chest is obtained. COMPARISON: Chest x-ray from 2 days earlier. FINDINGS: There is mild cardiomegaly with single lead pacemaker/defibrillator redemonstrated. There are chronic parenchymal changes with some increased markings bilaterally on current study. No pleural effusion or pneumothorax seen bilaterally. Osseous structures are intact. IMPRESSION: New mild interstitial edema and/or less likely atypical infiltrates. Correlate for CHF ex acerbation. Progress study advised.
--- NOTE | 2022-04-20 06:44 | P.PN ---
Subjective Progress Note Date: 04/20/22 This is a 56-year-old male patient with known history of ischemic cardiomyopathy with an ejection fraction of 30% and the patient has history of recurrent ventricular tachycardia with previous ablation and the patient has a single- chamber ICD and he has history of previous recurrent ICD shocks. The patient was in the hospital back in March 2022. At that time, the patient was seen by cardiology, the patient underwent a successful bundle branch reentry SVT ablation and ablation of a right bundle with residual RBB and normal AV function was identified. The patient had successful PTCA ablation originating from the anteroseptal Alerted muscle. There was an admission along the inferior wall along the LV scar. The patient was ultimately discharged home on a combination of Coreg 25 mg by mouth twice a day, sotalol 120 mg by mouth twice a day, Mexitil 150 mg by mouth every 8 hours, Eliquis 2.5 mg by mouth daily. Is already on Plavix and ASA and Entresto regarding his cardio myopathy. The elizabeth delgado presented to the emergency department yesterday with symptoms of shortness of breath and he was tachycardic. His EKG showed a wide complex tachycardia with a heart rate ranging between 160 and 180 and underlying rhythm was not clear. Could be an aberrant rhythm. Possibility of V. tach and IV completely excluded. The patient was hemodynamically stable. BP was 120/80. Normal pulse ox. Afebrile. He was however significantly tachycardic. The patient was cardioverted after being given etomidate and was given 75 J cardioversion and converted into normal sinus rhythm. Motor the patient was also given amiodarone in the emergency room a trial basis and this did not affect his cardiac rhythm. He was monitored for a total of 2 hours. He was tried on Cardizem drip and amiodarone was discontinued. The blood pressure dropped and Cardizem drip had to be discontinued. Ultimately, this led into a successful cardioversion. His chest x-ray is clear. He does have some hepatomegaly. There is no visible is at 9.6 with a hemoglobin of 14.8 and a platelet count of 314. Electrodes are normal. Troponins at 0.028 and his proBNP level is 1560. Most recent EKG from this morning showed a sinus rhythm with a right bundle branch block pattern. The patient is also diabetic and has hyperlipidemia in addition to his underlying cardiomyopathy. 04/19/2022, the patient is stable and the patient's cardiac rhythm is sinus with a bundle branch block pattern. No further cardiac arrhythmias over the past 24 hours. The patient was seen by cardiology. The patient was restarted on Coreg 12.5 mg by mouth twice a day and Mexitil 150 mg every 8 hours. Rest of the cardiac medications have been resumed. The patient is also noted to coagulation with Eliquis 2.5 mg twice a day and is also on Plavix. He is maintained on Lasix 20 mg by mouth daily. He is on 3 L of oxygen by nasal cannula with pulse ox of 96%. Pulse ox on room air is 94%. Patient was seen by electrophysiology and the plan is to consider another ablation. Note that during this time, the patient was started on IV lidocaine infusion for suppression of the ventricular tachycardia. Based on cardiology's opinion, the rhythm was a question was a sustained monomorphic ventricular tachycardia with a rate of 160-170. Based on that, another ablation study 04/20/2022, the patient is being seen for a follow-up. The patient is doing well and the patient is hemodynamically stable. Cardiac rhythm is sinus. No significant arrhythmias overnight. The patient's magnesium level is at 1.7 is being replaced. Potassium is 4.1. The plan is to undergo cardiac ablation on Friday. No signs of any decompensated heart failure. WBC thousand 10.6 with a hemoglobin of 13.1. The patient is on room air oxygen. The patient has no specific complaints. Remains the same cardiac medication including Coreg and Mexitil. He remains on anticoagulation with Eliquis 2.5 mg twice a day and Plavix. Objective - Vital Signs Vital signs: Vital Signs Temp 98.2 F 04/20/22 04:00 Pulse 80 04/20/22 06:00 Resp 14 04/20/22 06:00 BP 147/91 04/20/22 06:00 Pulse Ox 94 L 04/20/22 06:00 FiO2 Intake & Output 04/19/22 04/19/22 04/20/22 06:59 18:59 06:59 Intake Total 2415.875 450 Output Total 1300 2200 1450 Balance -1300 215.875 -1000 Intake: IV 200 Magnesium Sulfate-D5w Pmx 200 1 gm In Dextrose/Water 1 100ml.bag @ 100 mls/hr IVPB Q1H [facility] Rx#: [id number] Intake, IV Titration 215.875 Amount Lidocaine-D5w Pmx 2G/ 215.875 250Ml 2,000 mg In Dextrose/Water 1 250ml. bag @ 1 MG/MIN 7.5 mls/hr IV .Q24H [facility] Rx#: [id number] Oral 2000 450 Output: Urine 1300 2200 1450 Other: Voiding Method Urinal Urinal Urinal # Voids 1 0 2 - Exam The patient appeared well nourished and normally developed. Vital signs as documented. Head exam is unremarkable. No scleral icterus or corneal arcus noted. Neck is without jugular venous distension, thyromegaly, or carotid brui ts. Carotid upstrokes are brisk bilaterally. Lungs are clear to auscultation and percussion. Cardiac exam reveals the PMI to be normally sized and situated. Rhythm is regular. First and second heart sounds normal. No murmurs, rubs or gallops. Abdominal exam reveals normal bowel sounds, no masses, no organomegaly and no aortic enlargement. Extremities are nonedematous and both femoral and pedal pulses are normal.Examination of the skin revealed no evidence of significant rashes, suspicious appearing nevi or other concerning lesions.Neurologically, the patient is awake and alert and the patient does not have any focal neurological deficit. Cranial nerves are essentially intact. - Labs CBC & Chem 7: 04/20/22 04:04 04/20/22 04:04 Labs: Abnormal Lab Results - Last 24 Hours (Table) 04/19/22 04/19/22 04/19/22 Range/Units 06:13 06:13 11:16 WBC 11.7 H (3.8-10.6) k/uL Hgb 12.6 L (13.0-17.5) gm/dL Neutrophils # 9.1 H (1.3-7.7) k/uL Sodium 135 L (137-145) mmol/L Chloride 97 L (98-107) mmol/L Carbon Dioxide (22-30) mmol/L Glucose 104 H (74-99) mg/dL POC Glucose (mg/dL) 123 H (70-110) mg/dL 04/19/22 04/19/22 04/20/22 Range/Units 16:40 20:05 04:04 WBC (3.8-10.6) k/uL Hgb (13.0-17.5) gm/dL Neutrophils # (1.3-7.7) k/uL Sodium (137-145) mmol/L Chloride 97 L (98-107) mmol/L Carbon Dioxide 34 H (22-30) mmol/L Glucose 102 H (74-99) mg/dL POC Glucose (mg/dL) 141 H 141 H (70-110) mg/dL 04/20/22 04/20/22 Range/Units 04:04 06:30 WBC (3.8-10.6) k/uL Hgb (13.0-17.5) gm/dL Neutrophils # 7.8 H (1.3-7.7) k/uL Sodium (137-145) mmol/L Chloride (98-107) mmol/L Carbon Dioxide (22-30) mmol/L Glucose (74-99) mg/dL POC Glucose (mg/dL) 114 H (70-110) mg/dL Assessment and Plan Plan: Wide complex tachycardia/monomorphic VT , symptomatic, failed medical management and the patient was given cardioversion in the emergency department. Current cardiac rhythm is sinus and the patient also is in a right bundle branch block pattern. Cardiology is on the case. The patient is currently on IV lidocaine drip. The patient is also on Coreg and Mexitil. The plan is to undergo another ablation. For now, his cardiac rhythm is sinus. No changes condition over the past 24-48 hours. Electrodes are being managed. Coronary artery disease with previous [place]. The patient has undergone PCI 2 Ischemic cardiomyopathy with an ejection fraction of 30% History of recurrent DVT and the patient underwent a DVT and PVC ablation. This was done by cardiology on 03/21/2022. The patient also has an AICD in place. During the EP study, the patient was found to have DVT or rigidity from the inferior septal wall of the LV and he was also having frequent PVCs from the inferior wall. Hypertension Hyperlipidemia Diabetes mellitus Bronchial asthma History of esophageal stricture requiring esophageal dilatation Acid reflux Plan Hemodynamically stable at this point in time IV lidocaine Coreg, Mexitil to be continued aspirin and Plavix Entresto Eliquis 2.5 BID Patient is also on Lantus insulin. He'll be placed on a sliding scale insulin coverage for now. Xanax for anxiety Restart Lipitor Replace magnesium Cardiology consultation appreciated Monitor the ICU for now Tentative plan is to do another VT ablation on Friday.
[2022-04-20] MEDS: MEXILETINE 150 MG CAP PO SCH ×2 (08:42→16:20)
[2022-04-20] MEDS: APIXABAN 2.5 MG TABLET PO SCH ×2 (08:42→20:31)
[2022-04-20] MEDS: LINAGLIPTIN 5 MG TABLET PO SCH (08:43)
[2022-04-20] MEDS: FUROSEMIDE 20 MG TAB PO SCH (08:43)
[2022-04-20] MEDS: ATORVASTATIN 40 MG TAB PO SCH (08:43)
[2022-04-20] MEDS: CLOPIDOGREL 75 MG TAB PO SCH (08:43)
[2022-04-20] MEDS: metFORMIN 500 MG TAB PO SCH ×2 (08:44→20:31)
[2022-04-20] MEDS: SACUBITRIL/VALSARTAN 24 MG-26 MG TABLET PO SCH ×2 (08:44→20:31)
[2022-04-20] MEDS: ASPIRIN 81 MG PO SCH ×2 (08:49→20:31)
[2022-04-20] MEDS: SOTALOL 120 MG TAB PO SCH ×2 (11:45→20:31)
[2022-04-20 11:49] LABS: Glucose,Whole Blood 141 mg/dL (70-110)
--- NOTE | 2022-04-20 12:46 | P.PN ---
Subjective Progress Note Date: 04/20/22 The patient is a 56-year-old male who is currently admitted to the hospital with recurrent ventricular tachycardia. He was given multiple antiarrhythmic medications in the emergency room, but ultimately underwent cardioversion for sustained monomorphic ventricular tachycardia. During defibrillation, the patient likely aspirated and therefore was given steroids and supplemental oxygen. The patient has been tolerating mexiletine and lidocaine. Occasional PVCs noted on telemetry. Today we will resume sotalol. The patient was interviewed and examined. No chest pain overnight. No palpitations. GENERAL: Well-appearing, well-nourished and in no acute distress. NECK: Supple without JVD or thyromegaly. LUNGS: Breath sounds diminished to auscultation bilaterally. Respiration equal and unlabored. No wheezes, rales or rhonchi. HEART: Regular rate and rhythm without murmurs, rubs or gallops. S1 and S2 heard. EXTREMITIES: Normal range of motion, no edema. No clubbing or cyanosis. Peripheral pulses intact and strong. VITALS: Blood pressure 141/88, respiratory rate 23, SpO2 93% on room air, afebrile TELEMETRY: Sinus rhythm. Occasional PVCs LABS: WBC 10.6, hemoglobin 13.1, hematocrit 41.0, platelet 193, sodium 137, potassium 4.1, BUN 18, creatinine 0.90, magnesium 1.7 FINAL ASSESSMENT AND PLAN: Ventricular tachycardia Ischemic cardiomyopathy status post AICD Possible aspiration History of coronary artery disease History of hypertension History of dyslipidemia PLAN: Continue lidocaine drip and mexiletine Resume sotalol 120 mg twice daily Supplement electrolytes per protocol Continue to monitor respiratory status Plan for EP study and ablation on Friday I am dictating on behalf of Dr Derik Vaughan's history/physical and assessment/plan. Objective - Vital Signs Vital signs: Vital Signs Temp 97.5 F L 04/20/22 12:00 Pulse 87 04/20/22 12:00 Resp 23 04/20/22 12:00 BP 141/88 04/20/22 12:00 Pulse Ox 94 L 04/20/22 12:00 FiO2 Intake & Output 04/19/22 04/20/22 04/20/22 18:59 06:59 18:59 Intake Total 2415.875 450 465.0 Output Total 2200 1700 Balance 215.875 -1250 465.0 Weight 107.7 kg Intake: IV 200 225.0 Lidocaine-D5w Pmx 2G/ 15.0 250Ml 2,000 mg In Dextrose/Water 1 250ml. bag @ 1 MG/MIN 7.5 mls/hr IV .Q24H [facility] Rx#: [id number] Magnesium Sulfate-D5w Pmx 200 1 gm In Dextrose/Water 1 100ml.bag @ 100 mls/hr IVPB Q1H [facility] Rx#: [id number] Magnesium Sulfate-D5w Pmx 200 1 gm In Dextrose/Water 1 100ml.bag @ 100 mls/hr IVPB Q1H [facility] Rx#: [id number] Sodium Chloride 0.9 10 Intake, IV Titration 215.875 Amount Lidocaine-D5w Pmx 2G/ 215.875 250Ml 2,000 mg In Dextrose/Water 1 250ml. bag @ 1 MG/MIN 7.5 mls/hr IV .Q24H [facility] Rx#: [id number] Oral 2000 450 240 Output: Urine 2200 1700 Other: Voiding Method Urinal Urinal # Voids 0 1 - Labs CBC & Chem 7: 04/20/22 04:04 04/20/22 04:04 Labs: Abnormal Lab Results - Last 24 Hours (Table) 04/19/22 04/19/22 04/20/22 Range/Units 16:40 20:05 04:04 Neutrophils # (1.3-7.7) k/uL Chloride 97 L (98-107) mmol/L Carbon Dioxide 34 H (22-30) mmol/L Glucose 102 H (74-99) mg/dL POC Glucose (mg/dL) 141 H 141 H (70-110) mg/dL 04/20/22 04/20/22 04/20/22 Range/Units 04:04 06:30 11:47 Neutrophils # 7.8 H (1.3-7.7) k/uL Chloride (98-107) mmol/L Carbon Dioxide (22-30) mmol/L Glucose (74-99) mg/dL POC Glucose (mg/dL) 114 H 141 H (70-110) mg/dL
--- NOTE | 2022-04-20 16:09 | P.PN ---
Subjective Progress Note Date: 04/20/22 Principal diagnosis: Chest pain, could be related to cardiac causes Wide complex tachycardia, V. tach versus SVT and right bundle-branch block, status post cardioversion 56 years old male with multiple medical problems including asthma, coronary artery disease status post PCI 2 with history of ischemic cardiomyopathy status post AICD, hypertension, hyperlipidemia, hypothyroidism, iron deficiency anemia and iron treatment, diabetes mellitus, history of GI bleed, Patient presents because of chest pain that started last night about 7 PM about 5/10 in severity associated with breathing difficulty and sweating Currently he is sitting up in chair, with mild respiratory distress, he denies chest pain as 0/10, now much tachypnea or dyspnea. No much coughing He denies any GI or urinary symptoms, no vomiting abdominal pain or diarrhea, no dysuria urgency. No headache weakness numbness. On March 23 he had called with infection and he was at [facility], at that time he had 2 episodes of tachycardia has been evaluated by Dr. Lira. He denies smoking alcohol or illicit drugs. Patient is not on home oxygen. Presents because of chest pain and chest pressure associated with tachycardia with heart rate of 170, he is saturating 95% 6 L of oxygen via nasal cannula Currently vital signs stable, his heart rate is 78-86, patient is afebrile. Labs including CBC, BMP, liver enzymes and troponin looks unremarkable Glucose 165, 169 ProBNP 1560. EKG showing normal sinus rhythm at 70 bpm with right bundle branch block and left anterior fascicular block and left ventricular hypertrophy. QTC is 501 Initial EKG on admission showing tachycardia at 169, it looks like what complex tachycardia Chest x-ray: No acute process. I looked at the chest x-ray by myself and has prominent vascular markings Emergency room patient received amiodarone drip with mild improvement and then Cardizem and troponin was tried to causing hypotension so it was stopped and then cardioversion was done and rhythm switch to sinus after that patient was admitted to the ICU 04/20/2022 -- the patient is seen and evaluated for follow-up. The patient is doing well and the patient is hemodynamically stable. Cardiac rhythm is sinus. No significant arrhythmias overnight. Laboratory review shows magnesium level is at 1.7 is being replaced. Potassium is 4.1. WBC thousand 10.6 with a hemoglobin of 13. - The plan is to undergo cardiac ablation on Friday. No signs of any decompensated heart failure. The patient is on room air oxygen. The patient has no specific complaints. -- Remains on the same cardiac medication including Coreg and Mexitil. He remains on anticoagulation with Eliquis 2.5 mg twice a day and Plavix. Objective - Vital Signs Vital signs: Vital Signs Temp 97.8 F 04/20/22 08:00 Pulse 75 04/20/22 09:00 Resp 13 04/20/22 09:00 BP 121/74 04/20/22 09:00 Pulse Ox 94 L 04/20/22 09:00 FiO2 Intake & Output 04/19/22 04/20/22 04/20/22 18:59 06:59 18:59 Intake Total 2415.875 450 465.0 Output Total 2200 1700 Balance 215.875 -1250 465.0 Weight 107.7 kg Intake: IV 200 225.0 Lidocaine-D5w Pmx 2G/ 15.0 250Ml 2,000 mg In Dextrose/Water 1 250ml. bag @ 1 MG/MIN 7.5 mls/hr IV .Q24H [facility] Rx#: [id number] Magnesium Sulfate-D5w Pmx 200 1 gm In Dextrose/Water 1 100ml.bag @ 100 mls/hr IVPB Q1H [facility] Rx#: [id number] Magnesium Sulfate-D5w Pmx 200 1 gm In Dextrose/Water 1 100ml.bag @ 100 mls/hr IVPB Q1H [facility] Rx#: [id number] Sodium Chloride 0.9 10 Intake, IV Titration 215.875 Amount Lidocaine-D5w Pmx 2G/ 215.875 250Ml 2,000 mg In Dextrose/Water 1 250ml. bag @ 1 MG/MIN 7.5 mls/hr IV .Q24H [facility] Rx#: [id number] Oral 2000 450 240 Output: Urine 2200 1700 Other: Voiding Method Urinal Urinal # Voids 0 1 - Exam GENERAL: The patient is alert and oriented x3, not in any acute distress. Well developed, well nourished. HEENT: Pupils are round and equally reacting to light. EOMI. No scleral icterus. No conjunctival pallor. Normocephalic, atraumatic. No pharyngeal erythema. No thyromegaly. CARDIOVASCULAR: S1 and S2 present. No murmurs, rubs, or gallops. PULMONARY: Chest is clear to auscultation, no wheezing or crackles. ABDOMEN: Soft, nontender, nondistended, normoactive bowel sounds. No palpable organomegaly. MUSCULOSKELETAL: No joint swelling or deformity. EXTREMITIES: No cyanosis, clubbing, or pedal edema. NEUROLOGICAL: Gross neurological examination did not reveal any focal deficits. SKIN: No rashes. no petechiae. - Labs CBC & Chem 7: 04/20/22 04:04 04/20/22 04:04 Labs: Abnormal Lab Results - Last 24 Hours (Table) 04/19/22 04/19/22 04/20/22 Range/Units 16:40 20:05 04:04 Neutrophils # (1.3-7.7) k/uL Chloride 97 L (98-107) mmol/L Carbon Dioxide 34 H (22-30) mmol/L Glucose 102 H (74-99) mg/dL POC Glucose (mg/dL) 141 H 141 H (70-110) mg/dL 04/20/22 04/20/22 Range/Units 04:04 06:30 Neutrophils # 7.8 H (1.3-7.7) k/uL Chloride (98-107) mmol/L Carbon Dioxide (22-30) mmol/L Glucose (74-99) mg/dL POC Glucose (mg/dL) 114 H (70-110) mg/dL Assessment and Plan Assessment: Chest pain, could be related to cardiac causes Wide complex tachycardia, V. tach versus SVT and right bundle-branch block, status post cardioversion History of coronary artery disease status post PCI 2 Ischemic cardiomyopathy status post AICD Hypertension Hyperlipidemia Diabetes mellitus History of GI bleed and iron deficiency anemia History of asthma, not an active tissue Plan: Keep the patient in the ICU Patient Is status post Lasix IV 1 Resume medication and GORDON inhibitor Cardiology consult Critical care team consult Labs and medication were reviewed.. Continue same treatment. Continue with symptomatic treatment. Resume home medication. Monitor labs and vitals. DVT and GI prophylaxis. 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
[2022-04-20 17:42] LABS: Glucose,Whole Blood 149 mg/dL (70-110)
[2022-04-20] MEDS: ALPRAZolam 0.5 MG TAB PO SCH (20:31)
[2022-04-20] MEDS: PANTOPRAZOLE 40 MG TABLET PO SCH (20:34)
[2022-04-20] MEDS: LIDOCAINE-D5W PMX 2G/250ML 2,000 MG in DEXTROSE/WATER 1 250ML.BAG IV SCH (20:35)
[2022-04-20 20:40] LABS: Glucose,Whole Blood 162 mg/dL (70-110)
[2022-04-21] MEDS: MEXILETINE 150 MG CAP PO SCH ×4 (00:54→23:42)
[2022-04-21 06:31] LABS: Glucose,Whole Blood 107 mg/dL (70-110)
[2022-04-21] MEDS: carvediloL 12.5 MG TAB PO SCH ×2 (06:31→17:21)
[2022-04-21] MEDS: INSULIN ASPART (NovoLOG) 100 UNIT/ML VIAL SQ SCH ×4 (06:35→20:27)
[2022-04-21] MEDS ORDERED: Magnesium Replacement Protocol 1 EACH MISC MISCELLANE PRN (06:46)
--- NOTE | 2022-04-21 06:51 | P.PN ---
Subjective Progress Note Date: 04/21/22 This is a 56-year-old male patient with known history of ischemic cardiomyopathy with an ejection fraction of 30% and the patient has history of recurrent ventricular tachycardia with previous ablation and the patient has a single- chamber ICD and he has history of previous recurrent ICD shocks. The patient was in the hospital back in March 2022. At that time, the patient was seen by cardiology, the patient underwent a successful bundle branch reentry SVT ablation and ablation of a right bundle with residual RBB and normal AV function was identified. The patient had successful PTCA ablation originating from the anteroseptal Alerted muscle. There was an admission along the inferior wall along the LV scar. The patient was ultimately discharged home on a combination of Coreg 25 mg by mouth twice a day, sotalol 120 mg by mouth twice a day, Mexitil 150 mg by mouth every 8 hours, Eliquis 2.5 mg by mouth daily. Is already on Plavix and ASA and Entresto regarding his cardio myopathy. The elizabeth delgado presented to the emergency department yesterday with symptoms of shortness of breath and he was tachycardic. His EKG showed a wide complex tachycardia with a heart rate ranging between 160 and 180 and underlying rhythm was not clear. Could be an aberrant rhythm. Possibility of V. tach and IV completely excluded. The patient was hemodynamically stable. BP was 120/80. Normal pulse ox. Afebrile. He was however significantly tachycardic. The patient was cardioverted after being given etomidate and was given 75 J cardioversion and converted into normal sinus rhythm. Motor the patient was also given amiodarone in the emergency room a trial basis and this did not affect his cardiac rhythm. He was monitored for a total of 2 hours. He was tried on Cardizem drip and amiodarone was discontinued. The blood pressure dropped and Cardizem drip had to be discontinued. Ultimately, this led into a successful cardioversion. His chest x-ray is clear. He does have some hepatomegaly. There is no visible is at 9.6 with a hemoglobin of 14.8 and a platelet count of 314. Electrodes are normal. Troponins at 0.028 and his proBNP level is 1560. Most recent EKG from this morning showed a sinus rhythm with a right bundle branch block pattern. The patient is also diabetic and has hyperlipidemia in addition to his underlying cardiomyopathy. 04/19/2022, the patient is stable and the patient's cardiac rhythm is sinus with a bundle branch block pattern. No further cardiac arrhythmias over the past 24 hours. The patient was seen by cardiology. The patient was restarted on Coreg 12.5 mg by mouth twice a day and Mexitil 150 mg every 8 hours. Rest of the cardiac medications have been resumed. The patient is also noted to coagulation with Eliquis 2.5 mg twice a day and is also on Plavix. He is maintained on Lasix 20 mg by mouth daily. He is on 3 L of oxygen by nasal cannula with pulse ox of 96%. Pulse ox on room air is 94%. Patient was seen by electrophysiology and the plan is to consider another ablation. Note that during this time, the patient was started on IV lidocaine infusion for suppression of the ventricular tachycardia. Based on cardiology's opinion, the rhythm was a question was a sustained monomorphic ventricular tachycardia with a rate of 160-170. Based on that, another ablation study 04/20/2022, the patient is being seen for a follow-up. The patient is doing well and the patient is hemodynamically stable. Cardiac rhythm is sinus. No significant arrhythmias overnight. The patient's magnesium level is at 1.7 is being replaced. Potassium is 4.1. The plan is to undergo cardiac ablation on Friday. No signs of any decompensated heart failure. WBC thousand 10.6 with a hemoglobin of 13.1. The patient is on room air oxygen. The patient has no specific complaints. Remains the same cardiac medication including Coreg and Mexitil. He remains on anticoagulation with Eliquis 2.5 mg twice a day and Plavix. 04/21/2022, the patient's condition remained essentially stable without any interval change. Remains on lidocaine drip at a dose of 1 mg/m. No cardiac arrhythmias have been noted. Cardiac rhythm remained sinus with a bundle branch block pattern. The plan is to undergo VT ablation tomorrow and the patient will need further studies. The patient remains on Coreg 12.5 mg by mouth twice a day. The patient remains on Mexitil 150 mg every 8 hours. The patient is also sotalol 120 mg by mouth twice a day. The patient remains on a combination of Plavix and Eliquis 2.5 mg twice a day. No signs of any decompensated heart fa ilure. Denies having any chest pain. No syncope. No altered mentation. His oxygenation is also stable and the patient has a pulse ox of 93% on room air oxygen. Objective - Vital Signs Vital signs: Vital Signs Temp 97.9 F 04/21/22 04:00 Pulse 73 04/21/22 06:00 Resp 12 04/21/22 06:00 BP 140/93 04/21/22 06:00 Pulse Ox 93 L 04/21/22 06:00 FiO2 Intake & Output 04/20/22 04/20/22 04/21/22 06:59 18:59 06:59 Intake Total 450 864.5 424.375 Output Total 1700 1275 1999 Balance -1250 -410.5 -1575.625 Weight 107.7 kg 107.6 kg Intake: IV 374.5 210.0 Lidocaine-D5w Pmx 2G/ 64.5 90.0 250Ml 2,000 mg In Dextrose/Water 1 250ml. bag @ 1 MG/MIN 7.5 mls/hr IV .Q24H [facility] Rx#: [id number] Magnesium Sulfate-D5w Pmx 200 1 gm In Dextrose/Water 1 100ml.bag @ 100 mls/hr IVPB Q1H [facility] Rx#: [id number] Sodium Chloride 0.9 110 120 Intake, IV Titration 214.375 Amount Lidocaine-D5w Pmx 2G/ 214.375 250Ml 2,000 mg In Dextrose/Water 1 250ml. bag @ 1 MG/MIN 7.5 mls/hr IV .Q24H [facility] Rx#: [id number] Oral 450 490 Output: Urine 1700 1275 1999 Other: Voiding Method Urinal Toilet Toilet Urinal Urinal # Voids 1 1 1 - Exam The patient appeared well nourished and normally developed. Vital signs as documented. Head exam is unremarkable. No scleral icterus or corneal arcus noted. Neck is without jugular venous distension, thyromegaly, or carotid bruits. Carotid upstrokes are brisk bilaterally. Lungs are clear to auscultation and percussion. Cardiac exam reveals the PMI to be normally sized and situated. Rhythm is regular. First and second heart sounds normal. No murmurs, rubs or gallops. Abdominal exam reveals normal bowel sounds, no masses, no organomegaly and no aortic enlargement. Extremities are nonedematous and both femoral and pedal pulses are normal.Examination of the skin revealed no evidence of significant rashes, suspicious appearing nevi or other concerning lesions.Ne urologically, the patient is awake and alert and the patient does not have any focal neurological deficit. Cranial nerves are essentially intact. - Labs CBC & Chem 7: 04/20/22 04:04 04/20/22 04:04 Labs: Abnormal Lab Results - Last 24 Hours (Table) 04/20/22 04/20/22 04/20/22 Range/Units 11:47 17:41 20:38 POC Glucose (mg/dL) 141 H 149 H 162 H (70-110) mg/dL Magnesium (1.6-2.3) mg/dL 04/21/22 Range/Units 05:29 POC Glucose (mg/dL) (70-110) mg/dL Magnesium 1.5 L (1.6-2.3) mg/dL Assessment and Plan Plan: Wide complex tachycardia/monomorphic VT , symptomatic, failed medical management and the patient was given cardioversion in the emergency department. Current cardiac rhythm is sinus and the patient also is in a right bundle branch block pattern. Cardiology is on the case. The patient is currently on IV lidocaine drip. The patient is also on Coreg and Mexitil. The plan is to undergo another ablation. For now, his cardiac rhythm is sinus. No changes condition over the past 24-48 hours. Electrodes are being managed. Coronary artery disease with previous CA. The patient has undergone PCI 2 Ischemic cardiomyopathy with an ejection fraction of 30% History of recurrent DVT and the patient underwent a DVT and PVC ablation. This was done by cardiology on 03/21/2022. The patient also has an AICD in place. During the EP study, the patient was found to have DVT or rigidity from the inferior septal wall of the LV and he was also having frequent PVCs from the inferior wall. Hypertension Hyperlipidemia Diabetes mellitus Bronchial asthma History of esophageal stricture requiring esophageal dilatation Acid reflux Plan Hemodynamically stable at this point in time IV lidocaine at the same rate and the patient is not having any form of cardiac arrhythmias. Coreg, Mexitil and sotalol to be continued aspirin and Plavix Entresto Eliquis 2.5 BID Patient is also on Lantus insulin. He'll be placed on a sliding scale insulin coverage for now. Xanax for anxiety Restart Lipitor Replace magnesium, magnesium level is low at 1.5 to be replaced. Cardiology consultation appreciated Monitor the ICU for now Tentative plan is to do another VT ablation on Friday.
[2022-04-21] MEDS: MAGNESIUM SULFATE-D5W PMX 1 GM in DEXTROSE/WATER 1 100ML.BAG IVPB SCH ×2 (06:53→10:50)
[2022-04-21] MEDS: CLOPIDOGREL 75 MG TAB PO SCH (09:04)
[2022-04-21] MEDS: APIXABAN 2.5 MG TABLET PO SCH ×2 (09:04→19:14)
[2022-04-21] MEDS: ATORVASTATIN 40 MG TAB PO SCH (09:04)
[2022-04-21] MEDS: ASPIRIN 81 MG PO SCH ×2 (09:04→20:17)
[2022-04-21] MEDS: FUROSEMIDE 20 MG TAB PO SCH (09:05)
[2022-04-21] MEDS: LINAGLIPTIN 5 MG TABLET PO SCH (09:05)
[2022-04-21] MEDS: SACUBITRIL/VALSARTAN 24 MG-26 MG TABLET PO SCH ×2 (09:06→20:17)
[2022-04-21] MEDS: metFORMIN 500 MG TAB PO SCH ×2 (09:06→20:17)
[2022-04-21] MEDS: SOTALOL 120 MG TAB PO SCH ×2 (09:21→20:16)
[2022-04-21 10:16] LABS: African American GFR (CKD) >90 (>60 ml/min/1.73 sqM); Anion Gap 9 mmol/L; Blood Urea Nitrogen 17 mg/dL (9-20); Calcium 8.8 mg/dL (8.4-10.2); Carbon Dioxide 33 mmol/L (22-30); Chloride 95 mmol/L (98-107); Glucose 107 mg/dL (74-99); Non-African American GFR(CKD) >90 (>60 ml/min/1.73 sqM); Potassium 3.8 mmol/L (3.5-5.1); Sodium 137 mmol/L (137-145)
[2022-04-21 11:17] LABS: Glucose,Whole Blood 112 mg/dL (70-110)
--- NOTE | 2022-04-21 12:06 | P.PN ---
Subjective Progress Note Date: 04/21/22 The patient is a 56-year-old male who is currently admitted to the hospital with recurrent ventricular tachycardia. He was given multiple antiarrhythmic medications in the emergency room, but ultimately underwent cardioversion for sustained monomorphic ventricular tachycardia. During defibrillation, the patient likely aspirated and therefore was given steroids and supplemental oxygen. The patient remains on oral mexiletine and sotalol, as well as lidocaine drip to suppress ventricular tachycardia. The patient was interviewed and examined. No chest pain overnight. No palpitations. GENERAL: Well-appearing, well-nourished and in no acute distress. NECK: Supple without JVD or thyromegaly. LUNGS: Breath sounds diminished to auscultation bilaterally. Respiration equal and unlabored. No wheezes, rales or rhonchi. HEART: Regular rate and rhythm without murmurs, rubs or gallops. S1 and S2 hear d. EXTREMITIES: Normal range of motion, no edema. No clubbing or cyanosis. Peripheral pulses intact and strong. VITALS: Blood pressure 129/79, respiratory rate 16, pulse 81, SpO2 94% on room air TELEMETRY: Sinus rhythm. LABS: Sodium 137, potassium 3.8, BUN 17, creatinine 0.88, magnesium 1.5 FINAL ASSESSMENT AND PLAN: Ventricular tachycardia Ischemic cardiomyopathy status post AICD Possible aspiration History of coronary artery disease History of hypertension History of dyslipidemia Hypomagnesemia, supplement per protocol PLAN: Add sotalol 80 mg mid day (in addition to 120mg BID) Hold Eliquis starting tonight in preparation for EP procedure tomorrow Continue mexiletine and sotalol tomorrow morning Discontinue lidocaine drip at 11 AM Proceed with EP study and VT ablation tomorrow I am dictating on behalf of Dr Derik Vaughan's history/physical and assessment/plan. Objective - Vital Signs Vital signs: Vital Signs Temp 98.2 F 04/21/22 08:00 Pulse 79 04/21/22 11:00 Resp 19 04/21/22 11:00 BP 148/94 04/21/22 11:00 Pulse Ox 99 04/21/22 11:00 FiO2 Intake & Output 04/20/22 04/21/22 04/21/22 18:59 06:59 18:59 Intake Total 864.5 424.375 287.5 Output Total 1275 2000 1250 Balance -410.5 -1575.625 -962.5 Weight 107.6 kg Intake: IV 374.5 210.0 87.5 Lidocaine-D5w Pmx 2G/ 64.5 90.0 37.5 250Ml 2,000 mg In Dextrose/Water 1 250ml. bag @ 1 MG/MIN 7.5 mls/hr IV .Q24H [facility] Rx#: [id number] Magnesium Sulfate-D5w Pmx 200 1 gm In Dextrose/Water 1 100ml.bag @ 100 mls/hr IVPB Q1H [facility] Rx#: [id number] Sodium Chloride 0.9 110 120 50 Intake, IV Titration 214.375 Amount Lidocaine-D5w Pmx 2G/ 214.375 250Ml 2,000 mg In Dextrose/Water 1 250ml. bag @ 1 MG/MIN 7.5 mls/hr IV .Q24H [facility] Rx#: [id number] Oral 490 200 Output: Urine 1275 1999 1250 Other: Voiding Method Toilet Toilet Toilet Urinal Urinal Urinal # Voids 1 1 - Labs CBC & Chem 7: 04/20/22 04:04 04/21/22 05:29 Labs: Abnormal Lab Results - Last 24 Hours (Table) 04/20/22 04/20/22 04/21/22 Range/Units 17:41 20:38 05:29 Chloride (98-107) mmol/L Carbon Dioxide (22-30) mmol/L Glucose (74-99) mg/dL POC Glucose (mg/dL) 149 H 162 H (70-110) mg/dL Magnesium 1.5 L (1.6-2.3) mg/dL 04/21/22 04/21/22 Range/Units 05:29 11:16 Chloride 95 L (98-107) mmol/L Carbon Dioxide 33 H (22-30) mmol/L Glucose 107 H (74-99) mg/dL POC Glucose (mg/dL) 112 H (70-110) mg/dL Magnesium (1.6-2.3) mg/dL
[2022-04-21] MEDS ORDERED: SOTALOL 80 MG TAB PO STA (12:51)
[2022-04-21] MEDS: SODIUM CHLORIDE 0.9% 1,000 ML IV SCH (13:09)
--- NOTE | 2022-04-21 14:02 | P.PN ---
Subjective Progress Note Date: 04/21/22 Principal diagnosis: Chest pain, could be related to cardiac causes Wide complex tachycardia, V. tach versus SVT and right bundle-branch block, status post cardioversion 56 years old male with multiple medical problems including asthma, coronary artery disease status post PCI 2 with history of ischemic cardiomyopathy status post AICD, hypertension, hyperlipidemia, hypothyroidism, iron deficiency anemia and iron treatment, diabetes mellitus, history of GI bleed, Patient presents because of chest pain that started last night about 7 PM about 5/10 in severity associated with breathing difficulty and sweating Currently he is sitting up in chair, with mild respiratory distress, he denies chest pain as 0/10, now much tachypnea or dyspnea. No much coughing He denies any GI or urinary symptoms, no vomiting abdominal pain or diarrhea, no dysuria urgency. No headache weakness numbness. On March 23 he had called with infection and he was at [facility], at that time he had 2 episodes of tachycardia has been evaluated by Dr. Lira. He denies smoking alcohol or illicit drugs. Patient is not on home oxygen. Presents because of chest pain and chest pressure associated with tachycardia with heart rate of 170, he is saturating 95% 6 L of oxygen via nasal cannula Currently vital signs stable, his heart rate is 78-86, patient is afebrile. Labs including CBC, BMP, liver enzymes and troponin looks unremarkable Glucose 165, 169 ProBNP 1560. EKG showing normal sinus rhythm at 70 bpm with right bundle branch block and left anterior fascicular block and left ventricular hypertrophy. QTC is 501 Initial EKG on admission showing tachycardia at 169, it looks like what complex tachycardia Chest x-ray: No acute process. I looked at the chest x-ray by myself and has prominent vascular markings Emergency room patient received amiodarone drip with mild improvement and then Cardizem and troponin was tried to causing hypotension so it was stopped and then cardioversion was done and rhythm switch to sinus after that patient was admitted to the ICU 04/20/2022 -- the patient is seen and evaluated for follow-up. The patient is doing well and the patient is hemodynamically stable. Cardiac rhythm is sinus. No significant arrhythmias overnight. Laboratory review shows magnesium level is at 1.7 is being replaced. Potassium is 4.1. WBC thousand 10.6 with a hemoglobin of 13. - The plan is to undergo cardiac ablation on Friday. No signs of any decompensated heart failure. The patient is on room air oxygen. The patient has no specific complaints. -- Remains on the same cardiac medication including Coreg and Mexitil. He remains on anticoagulation with Eliquis 2.5 mg twice a day and Plavix. 24 hour interval change 04/21/2022 the patient is seen and evaluated sitting up in bedside chair; is present in the room -- condition remained essentially stable without any interval change. Remains on lidocaine drip at a dose of 1 mg/m. No cardiac arrhythmias have been noted. Cardiac rhythm remained sinus with a bundle branch block pattern. -- The plan is to undergo VT ablation tomorrow --patient remains on Coreg 12.5 mg by mouth twice a day; Mexitil 150 mg every 8 hours; sotalol 120 mg by mouth twice a day; remains on a combination of Plavix and Eliquis 2.5 mg twice a day. Patient remains hemodynamically stable; has been placed on Xanax for anxiety Tentatively scheduled for another VT ablation tomorrow Objective - Vital Signs Vital signs: Vital Signs Temp 98.2 F 04/21/22 08:00 Pulse 84 04/21/22 08:00 Resp 12 04/21/22 08:00 BP 152/99 04/21/22 08:00 Pulse Ox 94 L 04/21/22 08:00 FiO2 Intake & Output 04/20/22 04/21/22 04/21/22 18:59 06:59 18:59 Intake Total 864.5 424.375 35.0 Output Total 1275 2000 350 Balance -410.5 -1575.625 -315.0 Weight 107.6 kg Intake: IV 374.5 210.0 35.0 Lidocaine-D5w Pmx 2G/ 64.5 90.0 15.0 250Ml 2,000 mg In Dextrose/Water 1 250ml. bag @ 1 MG/MIN 7.5 mls/hr IV .Q24H [facility] Rx#: [id number] Magnesium Sulfate-D5w Pmx 200 1 gm In Dextrose/Water 1 100ml.bag @ 100 mls/hr IVPB Q1H [facility] Rx#: [id number] Sodium Chloride 0.9 110 120 20 Intake, IV Titration 214.375 Amount Lidocaine-D5w Pmx 2G/ 214.375 250Ml 2,000 mg In Dextrose/Water 1 250ml. bag @ 1 MG/MIN 7.5 mls/hr IV .Q24H [facility] Rx#: [id number] Oral 490 Output: Urine 1275 2000 350 Other: Voiding Method Toilet Toilet Urinal Urinal # Voids 1 1 - Exam GENERAL: The patient is alert and oriented x3, not in any acute distress. Well developed, well nourished. HEENT: Pupils are round and equally reacting to light. EOMI. No scleral icterus. No conjunctival pallor. Normocephalic, atraumatic. No pharyngeal erythema. No thyromegaly. CARDIOVASCULAR: S1 and S2 present. No murmurs, rubs, or gallops. PULMONARY: Chest is clear to auscultation, no wheezing or crackles. ABDOMEN: Soft, nontender, nondistended, normoactive bowel sounds. No palpable organomegaly. MUSCULOSKELETAL: No joint swelling or deformity. EXTREMITIES: No cyanosis, clubbing, or pedal edema. NEUROLOGICAL: Gross neurological examination did not reveal any focal deficits. SKIN: No rashes. no petechiae. - Labs CBC & Chem 7: 04/20/22 04:04 04/21/22 05:29 Labs: Abnormal Lab Results - Last 24 Hours (Table) 04/20/22 04/20/22 04/20/22 Range/Units 11:47 17:41 20:38 POC Glucose (mg/dL) 141 H 149 H 162 H (70-110) mg/dL Magnesium (1.6-2.3) mg/dL 04/21/22 Range/Units 05:29 POC Glucose (mg/dL) (70-110) mg/dL Magnesium 1.5 L (1.6-2.3) mg/dL Assessment and Plan Assessment: Chest pain, could be related to cardiac causes Wide complex tachycardia, V. tach versus SVT and right bundle-branch block, status post cardioversion History of coronary artery disease status post PCI 2 Ischemic cardiomyopathy status post AICD Hypertension Hyperlipidemia Diabetes mellitus History of GI bleed and iron deficiency anemia History of asthma, not an active tissue Plan: Keep the patient in the ICU Patient Is status post Lasix IV 1 Resume medication and GORDON inhibitor Cardiology consult Critical care team consult Labs and medication were reviewed.. Continue same treatment. Continue with symptomatic treatment. Resume home medication. Monitor labs and vitals. DVT and GI prophylaxis. Further recommendations as per clinical course of the patient DVT prophylaxis: Eliquis was held, deferred management of dial refinisher GI Prophylaxis: Ppi Prognosis is guarded
[2022-04-21 16:44] LABS: Glucose,Whole Blood 117 mg/dL (70-110)
[2022-04-21] MEDS ORDERED: Potassium Replacement Protocol 1 EACH MISC MISCELLANE PRN (19:31)
[2022-04-21] MEDS ORDERED: POTASSIUM CHLORIDE ER 20 MEQ TAB.ER PO SCH (20:00)
[2022-04-21] MEDS: ALPRAZolam 0.5 MG TAB PO SCH (20:16)
[2022-04-21] MEDS: PANTOPRAZOLE 40 MG TABLET PO SCH (20:16)
[2022-04-21] MEDS: LIDOCAINE-D5W PMX 2G/250ML 2,000 MG in DEXTROSE/WATER 1 250ML.BAG IV SCH (20:19)
[2022-04-21 20:24] LABS: Glucose,Whole Blood 182 mg/dL (70-110)
[2022-04-22 06:39] LABS: Glucose,Whole Blood 117 mg/dL (70-110)
[2022-04-22] MEDS: carvediloL 12.5 MG TAB PO SCH ×2 (06:39→19:01)
[2022-04-22] MEDS: INSULIN ASPART (NovoLOG) 100 UNIT/ML VIAL SQ SCH ×4 (07:03→22:10)
[2022-04-22 07:12] LABS: African American GFR (CKD) >90 (>60 ml/min/1.73 sqM); Anion Gap 10 mmol/L; Blood Urea Nitrogen 14 mg/dL (9-20); Calcium 8.9 mg/dL (8.4-10.2); Carbon Dioxide 31 mmol/L (22-30); Chloride 98 mmol/L (98-107); Glucose 119 mg/dL (74-99); Magnesium 1.6 mg/dL (1.6-2.3); Non-African American GFR(CKD) >90 (>60 ml/min/1.73 sqM); Potassium 4.2 mmol/L (3.5-5.1); Sodium 139 mmol/L (137-145)
[2022-04-22] MEDS: MAGNESIUM SULFATE-D5W PMX 1 GM in DEXTROSE/WATER 1 100ML.BAG IVPB SCH ×2 (08:55→10:05)
[2022-04-22] MEDS: MEXILETINE 150 MG CAP PO SCH ×2 (08:56→19:13)
[2022-04-22] MEDS: ATORVASTATIN 40 MG TAB PO SCH (08:56)
[2022-04-22] MEDS: FUROSEMIDE 20 MG TAB PO SCH (08:56)
[2022-04-22] MEDS: SOTALOL 120 MG TAB PO SCH (08:57)
[2022-04-22] MEDS: SACUBITRIL/VALSARTAN 24 MG-26 MG TABLET PO SCH ×2 (08:57→22:09)
[2022-04-22] MEDS: ASPIRIN 81 MG PO SCH ×2 (09:35→22:10)
[2022-04-22] MEDS: CLOPIDOGREL 75 MG TAB PO SCH (09:35)
--- NOTE | 2022-04-22 10:02 | P.PN ---
Subjective from records 56 years old male with multiple medical problems including asthma, coronary artery disease status post PCI 2 with history of ischemic cardiomyopathy status post AICD, hypertension, hyperlipidemia, hypothyroidism, iron deficiency anemia and iron treatment, diabetes mellitus, history of GI bleed, Patient presents because of chest pain that started last night about 7 PM about 5/10 in severity associated with breathing difficulty and sweating Currently he is sitting up in chair, with mild respiratory distress, he denies chest pain as 0/10, now much tachypnea or dyspnea. No much coughing He denies any GI or urinary symptoms, no vomiting abdominal pain or diarrhea, no dysuria urgency. No headache weakness numbness. On March 23 he had called with infection and he was at [facility], at that time he had 2 episodes of tachycardia has been evaluated by Dr. Lira. He denies smoking alcohol or illicit drugs. Patient is not on home oxygen. Presents because of chest pain and chest pressure associated with tachycardia with heart rate of 170, he is saturating 95% 6 L of oxygen via nasal cannula Currently vital signs stable, his heart rate is 78-86, patient is afebrile. Labs including CBC, BMP, liver enzymes and troponin looks unremarkable Glucose 165, 169 ProBNP 1560. EKG showing normal sinus rhythm at 70 bpm with right bundle branch block and left anterior fascicular block and left ventricular hypertrophy. QTC is 501 Initial EKG on admission showing tachycardia at 169, it looks like what complex tachycardia Chest x-ray: No acute process. I looked at the chest x-ray by myself and has prominent vascular markings Emergency room patient received amiodarone drip with mild improvement and then Cardizem and troponin was tried to causing hypotension so it was stopped and then cardioversion was done and rhythm switch to sinus after that patient was admitted to the ICU 04/20/2022 -- the patient is seen and evaluated for follow-up. The patient is doing well and the patient is hemodynamically stable. Cardiac rhythm is sinus. No significant arrhythmias overnight. Laboratory review shows magnesium level is at 1.7 is being replaced. Potassium is 4.1. WBC thousand 10.6 with a hemoglobin of 13. - The plan is to undergo cardiac ablation on Friday. No signs of any decompen sated heart failure. The patient is on room air oxygen. The patient has no specific complaints. -- Remains on the same cardiac medication including Coreg and Mexitil. He remains on anticoagulation with Eliquis 2.5 mg twice a day and Plavix. 24 hour interval change 04/21/2022 the patient is seen and evaluated sitting up in bedside chair; is present in the room -- condition remained essentially stable without any interval change. Remains on lidocaine drip at a dose of 1 mg/m. No cardiac arrhythmias have been noted. Cardiac rhythm remained sinus with a bundle branch block pattern. -- The plan is to undergo VT ablation tomorrow --patient remains on Coreg 12.5 mg by mouth twice a day; Mexitil 150 mg every 8 hours; sotalol 120 mg by mouth twice a day; remains on a combination of Plavix and Eliquis 2.5 mg twice a day. Patient remains hemodynamically stable; has been placed on Xanax for anxiety Tentatively scheduled for another VT ablation tomorrow 04/22/2022 No chest pain No dyspnea Heart rate 79 Creatinine normal Magnesium 1.6, potassium 4.2 Patient is going for cardiac ablation today for his ventricle or tachycardia Objective - Vital Signs Vital signs: Vital Signs Temp 98.4 F 04/22/22 08:00 Pulse 79 04/22/22 09:00 Resp 11 L 04/22/22 09:00 BP 140/89 04/22/22 09:00 Pulse Ox 95 04/22/22 09:00 FiO2 Intake & Output 04/21/22 04/22/22 04/22/22 18:59 06:59 18:59 Intake Total 530.0 388.0 137.5 Output Total 1650 2150 400 Balance -1120.0 -1762.0 -262.5 Weight 106.6 kg Intake: IV 210.0 210.0 137.5 Lidocaine-D5w Pmx 2G/ 90.0 90.0 7.5 250Ml 2,000 mg In Dextrose/Water 1 250ml. bag @ 1 MG/MIN 7.5 mls/hr IV .Q24H [facility] Rx#: [id number] Magnesium Sulfate-D5w Pmx 100 1 gm In Dextrose/Water 1 100ml.bag @ 100 mls/hr IVPB Q1H [facility] Rx#: [id number] Sodium Chloride 0.9 120 120 30 Intake, IV Titration 178 Amount Lidocaine-D5w Pmx 2G/ 178 250Ml 2,000 mg In Dextrose/Water 1 250ml. bag @ 1 MG/MIN 7.5 mls/hr IV .Q24H [facility] Rx#: [id number] Oral 320 Output: Urine 1650 2150 400 Other: Voiding Method Toilet Toilet Urinal Urinal # Voids 1 1 # Bowel Movements 1 - Exam GENERAL: The patient is alert and oriented x3, not in any acute distress. Well developed, well nourished. HEENT: Pupils are round and equally reacting to light. EOMI. No scleral icterus. No conjunctival pallor. Normocephalic, atraumatic. No pharyngeal erythema. No thyromegaly. CARDIOVASCULAR: S1 and S2 present. No murmurs, rubs, or gallops. PULMONARY: Chest is clear to auscultation, no wheezing or crackles. ABDOMEN: Soft, nontender, nondistended, normoactive bowel sounds. No palpable organomegaly. MUSCULOSKELETAL: No joint swelling or deformity. EXTREMITIES: No cyanosis, clubbing, or pedal edema. NEUROLOGICAL: Gross neurological examination did not reveal any focal deficits. SKIN: No rashes. no petechiae. - Labs CBC & Chem 7: 04/20/22 04:04 04/22/22 05:27 Labs: Abnormal Lab Results - Last 24 Hours (Table) 04/21/22 04/21/22 04/21/22 Range/Units 05:29 11:16 16:42 Chloride 95 L (98-107) mmol/L Carbon Dioxide 33 H (22-30) mmol/L Glucose 107 H (74-99) mg/dL POC Glucose (mg/dL) 112 H 117 H (70-110) mg/dL 04/21/22 04/22/22 04/22/22 Range/Units 20:23 05:27 06:38 Chloride (98-107) mmol/L Carbon Dioxide 31 H (22-30) mmol/L Glucose 119 H (74-99) mg/dL POC Glucose (mg/dL) 182 H 117 H (70-110) mg/dL Assessment and Plan Assessment: Chest pain, could be related to cardiac causes. Improved Wide complex tachycardia, V. tach v, status post cardioversion. Going for cardiac ablation 04/22 History of coronary artery disease status post PCI 2 Ischemic cardiomyopathy status post AICD Hypertension Hyperlipidemia Diabetes mellitus History of GI bleed and iron deficiency anemia History of asthma, not an active tissue Plan: Keep the patient in the ICU Resume medication and GORDON inhibitor Cardiology consult Critical care team consult Continue with mexiletine and sotalol per budget coordinator Labs and medication were reviewed.. Continue same treatment. Continue with symptomatic treatment. Resume home medication. Monitor labs and vitals. DVT and GI prophylaxis. Further recommendations as per clinical course of the patient DVT prophylaxis: Eliquis was held, deferred management of budget coordinator GI Prophylaxis: Ppi Prognosis is guarded
[2022-04-22] MEDS: LIDOCAINE-D5W PMX 2G/250ML 2,000 MG in DEXTROSE/WATER 1 250ML.BAG IV SCH (10:05)
[2022-04-22] MEDS ORDERED: VANCOMYCIN 1,000 MG in SODIUM CHLORIDE 0.9% 250 ML IVPB STA (10:32)
[2022-04-22] MEDS ORDERED: SODIUM CHLORIDE 0.9% 900 ML IV ONE (11:30)
[2022-04-22] MEDS ORDERED: PHENYLEPHRINE-0.9% NACL SYG 1,000 MCG/10 ML SYRINGE ONE (11:32)
[2022-04-22] MEDS ORDERED: fentaNYL (PF) 50 MCG/ML 2 ML AMP ONE (11:32)
[2022-04-22] MEDS ORDERED: DEXAMETHASONE SOD PHOS (MDV) 100 MG/10 ML VIAL ONE (11:32)
[2022-04-22] MEDS ORDERED: PROPOFOL 10 MG/ML 20 ML VIAL IV ONE (11:32)
[2022-04-22] MEDS ORDERED: ISOPROTERENOL 250 MCG/1.25 ML SYR IV ONE (11:32)
[2022-04-22] MEDS ORDERED: FUROSEMIDE 10 MG/ML 2 ML VIAL ONE (11:32)
[2022-04-22] MEDS ORDERED: MIDAZOLAM 2 MG/2 ML VIAL ONE (11:32)
[2022-04-22] MEDS ORDERED: HEPARIN SODIUM,PORCINE 10,000 UNIT/ML 1 ML VIAL ONE (11:32)
[2022-04-22] MEDS ORDERED: ONDANSETRON 4 MG/2 ML VIAL ONE (11:32)
[2022-04-22] MEDS ORDERED: KETAMINE 10 MG/ML 20 ML VIAL ONE (11:32)
--- NOTE | 2022-04-22 11:50 | P.PN ---
Subjective Progress Note Date: 04/22/22 Principal diagnosis: Wide-complex tachycardia This is a 56-year-old male patient with known history of ischemic cardiomyopathy with an ejection fraction of 30% and the patient has history of recurrent ventricular tachycardia with previous ablation and the patient has a single-ch abdirashid ICD and he has history of previous recurrent ICD shocks. The patient was in the hospital back in March 2022. At that time, the patient was seen by cardiology, the patient underwent a successful bundle branch reentry SVT ablation and ablation of a right bundle with residual RBB and normal AV function was identified. The patient had successful PTCA ablation originating from the anteroseptal Alerted muscle. There was an admission along the inferior wall along the LV scar. The patient was ultimately discharged home on a combination of Coreg 25 mg by mouth twice a day, sotalol 120 mg by mouth twice a day, Mexitil 150 mg by mouth every 8 hours, Eliquis 2.5 mg by mouth daily. Is alre elijah on Plavix and ASA and Entresto regarding his cardio myopathy. The patient presented to the emergency department yesterday with symptoms of shortness of breath and he was tachycardic. His EKG showed a wide complex tachycardia with a heart rate ranging between 160 and 180 and underlying rhythm was not clear. Could be an aberrant rhythm. Possibility of V. tach and IV completely excluded. The patient was hemodynamically stable. BP was 120/80. Normal pulse ox. Afebrile. He was however significantly tachycardic. The patient was cardioverted after being given etomidate and was given 75 J cardioversion and converted into normal sinus rhythm. Motor the patient was also given amiodarone in the emergency room a trial basis and this did not affect his cardiac rhythm. He was monitored for a total of 2 hours. He was tried on Cardizem drip and amiodarone was discontinued. The blood pressure dropped and Cardizem drip had to be discontinued. Ultimately, this led into a successful cardioversion. His chest x-ray is clear. He does have some hepatomegaly. There is no visible is at 9.6 with a hemoglobin of 14.8 and a platelet count of 314. Electrodes are normal. Troponins at 0.028 and his proBNP level is 1560. Most recent EKG from this morning showed a sinus rhythm with a right bundle branch block pattern. The patient is also diabetic and has hyperlipidemia in addition to his underlying cardiomyopathy. 04/19/2022, the patient is stable and the patient's cardiac rhythm is sinus with a bundle branch block pattern. No further cardiac arrhythmias over the past 24 hours. The patient was seen by cardiology. The patient was restarted on Coreg 12.5 mg by mouth twice a day and Mexitil 150 mg every 8 hours. Rest of the cardiac medications have been resumed. The patient is also noted to coagulation with Eliquis 2.5 mg twice a day and is also on Plavix. He is maintained on Lasix 20 mg by mouth daily. He is on 3 L of oxygen by nasal cannula with pulse ox of 96%. Pulse ox on room air is 94%. Patient was seen by electrophysiology and the plan is to consider another ablation. Note that during this time, the patient was started on IV lidocaine infusion for suppression of the ventricular tachycardia. Based on cardiology's opinion, the rhythm was a question was a sustained monomorphic ventricular tachycardia with a rate of 160-170. Based on that, another ablation study 04/20/2022, the patient is being seen for a follow-up. The patient is doing well and the patient is hemodynamically stable. Cardiac rhythm is sinus. No significant arrhythmias overnight. The patient's magnesium level is at 1.7 is being replaced. Potassium is 4.1. The plan is to undergo cardiac ablation on Friday. No signs of any decompensated heart failure. WBC thousand 10.6 with a hemoglobin of 13.1. The patient is on room air oxygen. The patient has no specific complaints. Remains the same cardiac medication including Coreg and Mexitil. He remains on anticoagulation with Eliquis 2.5 mg twice a day and Plavix. 04/21/2022, the patient's condition remained essentially stable without any interval change. Remains on lidocaine drip at a dose of 1 mg/m. No cardiac arr hythmias have been noted. Cardiac rhythm remained sinus with a bundle branch block pattern. The plan is to undergo VT ablation tomorrow and the patient will need further studies. The patient remains on Coreg 12.5 mg by mouth twice a day. The patient remains on Mexitil 150 mg every 8 hours. The patient is also sotalol 120 mg by mouth twice a day. The patient remains on a combination of Plavix and Eliquis 2.5 mg twice a day. No signs of any decompensated heart failure. Denies having any chest pain. No syncope. No altered mentation. His oxygenation is also stable and the patient has a pulse ox of 93% on room air oxygen. Seen today on 04/22/2022, patient remains in the ICU, he is on lidocaine drip at 1 mg/m, presently in sinus rhythm, not in any distress, patient is scheduled to undergo ablation today for recurrent ventricular tachycardia. He is on room air, he is relatively asymptomatic. Labs today including basic metabolic profile are normal Objective - Vital Signs Vital signs: Vital Signs Temp 98.4 F 04/22/22 08:00 Pulse 78 04/22/22 10:00 Resp 13 04/22/22 10:00 BP 156/103 04/22/22 10:00 Pulse Ox 95 04/22/22 09:00 FiO2 Intake & Output 04/21/22 04/22/22 04/22/22 18:59 06:59 18:59 Intake Total 530.0 388.0 350.625 Output Total 1650 2150 400 Balance -1120.0 -1762.0 -49.375 Weight 106.6 kg Intake: IV 210.0 210.0 247.5 Lidocaine-D5w Pmx 2G/ 90.0 90.0 7.5 250Ml 2,000 mg In Dextrose/Water 1 250ml. bag @ 1 MG/MIN 7.5 mls/hr IV .Q24H [facility] Rx#: [id number] Magnesium Sulfate-D5w Pmx 200 1 gm In Dextrose/Water 1 100ml.bag @ 100 mls/hr IVPB Q1H [facility] Rx#: [id number] Sodium Chloride 0.9 120 120 40 Intake, IV Titration 178 103.125 Amount Lidocaine-D5w Pmx 2G/ 178 103.125 250Ml 2,000 mg In Dextrose/Water 1 250ml. bag @ 1 MG/MIN 7.5 mls/hr IV .Q24H [facility] Rx#: [id number] Oral 320 Output: Urine 1650 2150 400 Other: Voiding Method Toilet Toilet Toilet Urinal Urinal Urinal # Voids 1 1 # Bowel Movements 1 - Exam Physical Exam: Revealed a 56-year-old white male in no distress. Head: Atraumatic, normocephalic HEENT:[Neck is supple.] [No neck masses.] [No thyromegaly.] [No JVD.] Chest: [Clear throughout, no crackles, no rhonchi, no wheezes.] Cardiac Exam: [Normal S1 and S2, no S3 gallop, no murmur.] Abdomen: [Soft, nontender, no megaly, no rebound, no guarding, normal bowel sounds.] Extremities: [No clubbing, no edema, no cyanosis.] Neurological Exam: [No focal neurologic deficit.] Alert oriented 3. Psychiatric: Normal mood affect and normal mental status examination. Skin: No rashes. - Labs CBC & Chem 7: 04/20/22 04:04 04/22/22 05:27 Labs: Abnormal Lab Results - Last 24 Hours (Table) 04/21/22 04/21/22 04/22/22 Range/Units 16:42 20:23 05:27 Carbon Dioxide 31 H (22-30) mmol/L Glucose 119 H (74-99) mg/dL POC Glucose (mg/dL) 117 H 182 H (70-110) mg/dL 04/22/22 Range/Units 06:38 Carbon Dioxide (22-30) mmol/L Glucose (74-99) mg/dL POC Glucose (mg/dL) 117 H (70-110) mg/dL Assessment and Plan Assessment: Impression: Wide-complex tachycardia, cardioverted in the ER, presently on lidocaine drip. Patient is also on Coreg and mexiletine. Scheduled to undergo ablation today. Coronary artery disease and previous IA previous PCI 2 Ischemic cardiomyopathy and LV dysfunction with ejection fraction of 30% History of AICD placement. History of DVT Benign essential hypertension Type 2 diabetes History of esophageal stricture requiring dilatation History of GERD Dyslipidemia Recommendation: Continue present treatment plan Continue lidocaine and antiarrhythmic agents. Scheduled for ablation today. Continue Xanax. Continue eliquis. Continue Plavix and aspirin. Close monitoring of electrolytes and correction of serum magnesium We will continue to follow Time with Patient: Less than 30
[2022-04-22] MEDS ORDERED: LIDOCAINE 2% URO-JET JELLY 5 ML KIT ONE (11:58)
[2022-04-22] MEDS ORDERED: SOTALOL 80 MG TAB PO SCH (12:00)
[2022-04-22] MEDS ORDERED: CLINDAMYCIN 900 MG in DEXTROSE 5% IN WATER 50 ML IVPB ONE ×2 (12:00)
[2022-04-22] MEDS ORDERED: LIDOCAINE 1% INJ 10MG/ML (30 ML VIAL-PF) SQ ONE (12:27)
[2022-04-22] MEDS ORDERED: HEPARIN SOD,PORK IN 0.45% NACL 25,000 UNIT in 0.45% NACL 1 250ML.BAG IV ONE (12:30)
[2022-04-22] MEDS: SODIUM CHLORIDE 0.9% 1,000 ML IV SCH (13:36)
[2022-04-22] MEDS ORDERED: HEPARIN SODIUM (1,000 UNIT/ML) 1,000 UNIT in SODIUM CHLORIDE 0.9% 1,000 ML IRRIGATION ONE (13:54)
[2022-04-22] MEDS ORDERED: LACTATED RINGERS 1,000 ML IV ONE (17:21)
[2022-04-22] MEDS ORDERED: ACETAMINOPHEN TAB 325 MG TAB PO PRN (17:54)
[2022-04-22] MEDS ORDERED: HYDROmorphone 0.5 MG/0.5 ML SYRINGE IVP ONE (18:15)
--- NOTE | 2022-04-22 18:18 | P.EPPROC ---
- EP Procedure Note Electrophysiology Procedure Note: Diagnosis Recurrent ventricular tachycardia VT QRS resembles intrinsic QRS, consistent with bundle branch reentry Underlying right bundle branch block pattern status post right bundle ablation in the past Details Patient was brought to the EP lab in a fasting state. Written informed consent was obtained prior to the procedure. Conscious sedation provided Arterial and venous sheaths placed in the femoral vessels Diagnostic catheters placed in the high right atrium and His bundle area right ventricle and in the left ventricle retrogradely Sinus cycle length 933 ms, IL interval 144 ms, QRS 168 ms and QT 493 ms 55 ms, HV interval 60 ms Single-chamber ICD was interrogated and reprogrammed Ventricular extra stimulation was performed With double extrastimuli VT could not be induced. This was a sharp contrast to his next procedure in February 2022 at which time VT could be induced with great ease with double extrastimuli With triple excess stimuli VT was induced at 600/3:30/250/310 ms His bundle signal was noted before every alternate QRS, HV interval 82 ms during ventricular tachycardia QRS morphology very similar to intrinsic QRS morphology with a right bundle branch block pattern Device interrogation revealed a 90-94% match with intrinsic template Antitachycardia pacing terminated the arrhythmia The patient was hypotensive during VT 3-D electro-and on mapping was performed Intracardiac echo was performed The moderator band was mapped since he had previously had a successful right bundle ablation with development of right bundle branch block pattern twelve- lead EKG (Originally, prior to his bundle branch reentry ablation, he had a left bundle branch block pattern on twelve-lead EKG but with ablation of the right bundle in March 2022, he had developed right bundle signal successfully) First the right bundle was the mapped Intracardiac echo was used to map the moderator band successfully The His bundle was tagged It is very difficult to find right bundle signals Therefore RF ablation was performed between the His bundle and the moderator band with 40 W of power excellent contact force Following that the EP study was once again repeated and it was extremely difficult to induce arrhythmia Finally the arrhythmia was induced after great difficulty with triple extrastimuli on isoproterenol The patient was hypotensive The QRS match once again was between 90-94% the intrinsic QRS consistent with bundle branch reentry Therefore the retrograde approach was used and the left-sided signals were mapped The left ventricle was mapped The left ventricle was placed He'll His bundle and the left side was successfully identified However he had great difficulty in identifying the left posterior fascicular signal and the left anterior fascicular signal Be obtained a semblance of a left posterior fascicular signal and RF applications were applied here with good contact force and power However the VT was still inducible. Patient would become hypertensive Antitachycardia pacing would immediately terminate the VT At this point we considered fascicular VT as well as a septal VT that engaged the His-Purkinje system as other possibilities However given the fact that with right bundle ablation it became extremely difficult to induce the ventricular tachycardia, we went back to the right side and mapped the right bundle signal once again Finally we were able to obtain a right bundle-ventricular signal of 20 ms RF ablation was applied at and around the site following which no VT was induced with aggressive extra stimulation The patient's intrinsic QRS remained right bundle to the left anterior fascicular block The device was then reprogrammed VT 1 zone at 160 beats a minute with 70 detections VT 2 at 206 bpm, with 30 detections VT 3 at 240 beats a minute with 24 detections A more aggressive antitachycardia pacing protocol at 81% followed by 75% was used Appropriate cardioversion defibrillations programmed The template match was maintained 95% to differentiate between SVT and VT This was an extremely long procedure requiring extensive mapping of the right bundle area and the left bundle, left posterior fascicular area Both sides were ablated It is quite likely that the difficulty in obtaining right bundle signals and left posterior fascicular signals was secondary to an old extensive anterior septal TX with fibrosis in the area. This would also result in reduced efficacy of RF delivery We used 40 W of power with good contact force and were finally able to eliminate the ventricular tachycardia
--- NOTE | 2022-04-22 18:22 | P.PRLE ---
RE: Alex Monaco Dear Melissa Alex was admitted with ventricular tachycardia that resembled SVT He has a specific form of ventricular tachycardia known as bundle branch reentry which looks exactly like SVT and is unresponsive to contribute drugs In the month of March I had performed VT ablation for 3 separate ventricular tachycardias He had an inferior septal LV VT that was successfully ablated He had a PVC that was quite frequent and was initiating the VT which is also successfully ablated Both these ventricular tachycardias have not recurred since I ablated the third ventricular tachycardia, the bundle branch reentry at that time and the ablation lesion successfully resulted in creation of a right bundle branch block on account of ablation of the right bundle However he had recurrent VT and the intracardiac electrograms suggested a different VT from before However I took him back to the EP lab and this time he had the reverse form of his original bundle branch reentry It took a long time to find the right and left bundle signals most likely because of his extensive anterior septal scar However he was able to successfully identified right bundle signal and RF ablation at the site resulted in successful elimination of VT We could not induce the VT again At this time I'm stopping mexiletine and reducing the dose of sotalol to 80 mg twice daily His other cardiac medications will continue unchanged and he will go back on ELIQUIS 2.5 mg twice daily along with antiplatelet therapy Thank you for entrusting me with the care of the patient Warm regards Sincerely Derik Vaughan
[2022-04-22 20:58] LABS: Glucose,Whole Blood 234 mg/dL (70-110)
[2022-04-22] MEDS: PANTOPRAZOLE 40 MG TABLET PO SCH (22:09)
[2022-04-22] MEDS: APIXABAN 2.5 MG TABLET PO SCH (22:10)
[2022-04-22] MEDS: SOTALOL 80 MG TAB PO SCH (22:10)
[2022-04-22] MEDS: ALPRAZolam 0.5 MG TAB PO SCH (22:10)
--- NOTE | 2022-04-22 22:34 | PN ---
PROGRESS NOTE SUBJECTIVE: A 56-year-old gentleman, who is admitted to hospital with sustained monomorphic ventricular tachycardia. The patient has had recurrent VT over the last 2 weeks. This occurred despite the antiarrhythmic therapy and the AICD did not go off. The patient will undergo EP study with possible ablation today. OBJECTIVE: GENERAL: At the time of my evaluation, he appears comfortable at rest. VITAL SIGNS: Stable. CHEST: Reveals good air entry bilaterally. HEART: Reveals first and second heart sounds. No gallop. ABDOMEN: Soft. EXTREMITIES: Did not reveal any edema. Peripheral pulses are felt. LABORATORY DATA: Labs show potassium of 4.2, creatinine 0.8. ASSESSMENT: Sustained monomorphic ventricular tachycardia for ablation today. MMODL / IJN: [id number] /
[2022-04-23 05:40] LABS: Glucose,Whole Blood 152 mg/dL (70-110)
[2022-04-23] MEDS: INSULIN ASPART (NovoLOG) 100 UNIT/ML VIAL SQ SCH ×2 (06:44→11:33)
[2022-04-23] MEDS: carvediloL 12.5 MG TAB PO SCH (06:47)
[2022-04-23 07:48] LABS: African American GFR (CKD) >90 (>60 ml/min/1.73 sqM); Anion Gap 6 mmol/L; Blood Urea Nitrogen 17 mg/dL (9-20); Calcium 8.4 mg/dL (8.4-10.2); Carbon Dioxide 30 mmol/L (22-30); Chloride 101 mmol/L (98-107); Glucose 148 mg/dL (74-99); Magnesium 1.7 mg/dL (1.6-2.3); Non-African American GFR(CKD) >90 (>60 ml/min/1.73 sqM); Potassium 3.9 mmol/L (3.5-5.1); Sodium 137 mmol/L (137-145)
[2022-04-23 09:22] VITALS: TEMP 98.2
[2022-04-23] MEDS: CLOPIDOGREL 75 MG TAB PO SCH (09:25)
[2022-04-23] MEDS: ALPRAZolam 0.5 MG TAB PO SCH (09:25)
[2022-04-23] MEDS: SOTALOL 80 MG TAB PO SCH (09:25)
[2022-04-23] MEDS: APIXABAN 2.5 MG TABLET PO SCH (09:25)
[2022-04-23] MEDS: FUROSEMIDE 20 MG TAB PO SCH (09:25)
[2022-04-23] MEDS: SACUBITRIL/VALSARTAN 24 MG-26 MG TABLET PO SCH (09:25)
[2022-04-23] MEDS: ATORVASTATIN 40 MG TAB PO SCH (09:25)
[2022-04-23 10:29] VITALS: BMI 28.6
--- NOTE | 2022-04-23 11:27 | P.PN ---
Subjective Progress Note Date: 04/23/22 Principal diagnosis: Wide-complex tachycardia This is a 56-year-old male patient with known history of ischemic cardiomyopathy with an ejection fraction of 30% and the patient has history of recurrent ventricular tachycardia with previous ablation and the patient has a single-ch abdirashid ICD and he has history of previous recurrent ICD shocks. The patient was in the hospital back in March 2022. At that time, the patient was seen by cardiology, the patient underwent a successful bundle branch reentry SVT ablation and ablation of a right bundle with residual RBB and normal AV function was identified. The patient had successful PTCA ablation originating from the anteroseptal Alerted muscle. There was an admission along the inferior wall along the LV scar. The patient was ultimately discharged home on a combination of Coreg 25 mg by mouth twice a day, sotalol 120 mg by mouth twice a day, Mexitil 150 mg by mouth every 8 hours, Eliquis 2.5 mg by mouth daily. Is alre elijah on Plavix and ASA and Entresto regarding his cardio myopathy. The patient presented to the emergency department yesterday with symptoms of shortness of breath and he was tachycardic. His EKG showed a wide complex tachycardia with a heart rate ranging between 160 and 180 and underlying rhythm was not clear. Could be an aberrant rhythm. Possibility of V. tach and IV completely excluded. The patient was hemodynamically stable. BP was 120/80. Normal pulse ox. Afebrile. He was however significantly tachycardic. The patient was cardioverted after being given etomidate and was given 75 J cardioversion and converted into normal sinus rhythm. Motor the patient was also given amiodarone in the emergency room a trial basis and this did not affect his cardiac rhythm. He was monitored for a total of 2 hours. He was tried on Cardizem drip and amiodarone was discontinued. The blood pressure dropped and Cardizem drip had to be discontinued. Ultimately, this led into a successful cardioversion. His chest x-ray is clear. He does have some hepatomegaly. There is no visible is at 9.6 with a hemoglobin of 14.8 and a platelet count of 314. Electrodes are normal. Troponins at 0.028 and his proBNP level is 1560. Most recent EKG from this morning showed a sinus rhythm with a right bundle branch block pattern. The patient is also diabetic and has hyperlipidemia in addition to his underlying cardiomyopathy. 04/19/2022, the patient is stable and the patient's cardiac rhythm is sinus with a bundle branch block pattern. No further cardiac arrhythmias over the past 24 hours. The patient was seen by cardiology. The patient was restarted on Coreg 12.5 mg by mouth twice a day and Mexitil 150 mg every 8 hours. Rest of the cardiac medications have been resumed. The patient is also noted to coagulation with Eliquis 2.5 mg twice a day and is also on Plavix. He is maintained on Lasix 20 mg by mouth daily. He is on 3 L of oxygen by nasal cannula with pulse ox of 96%. Pulse ox on room air is 94%. Patient was seen by electrophysiology and the plan is to consider another ablation. Note that during this time, the patient was started on IV lidocaine infusion for suppression of the ventricular tachycardia. Based on cardiology's opinion, the rhythm was a question was a sustained monomorphic ventricular tachycardia with a rate of 160-170. Based on that, another ablation study 04/20/2022, the patient is being seen for a follow-up. The patient is doing well and the patient is hemodynamically stable. Cardiac rhythm is sinus. No significant arrhythmias overnight. The patient's magnesium level is at 1.7 is being replaced. Potassium is 4.1. The plan is to undergo cardiac ablation on Friday. No signs of any decompensated heart failure. WBC thousand 10.6 with a hemoglobin of 13.1. The patient is on room air oxygen. The patient has no specific complaints. Remains the same cardiac medication including Coreg and Mexitil. He remains on anticoagulation with Eliquis 2.5 mg twice a day and Plavix. 04/21/2022, the patient's condition remained essentially stable without any interval change. Remains on lidocaine drip at a dose of 1 mg/m. No cardiac arr hythmias have been noted. Cardiac rhythm remained sinus with a bundle branch block pattern. The plan is to undergo VT ablation tomorrow and the patient will need further studies. The patient remains on Coreg 12.5 mg by mouth twice a day. The patient remains on Mexitil 150 mg every 8 hours. The patient is also sotalol 120 mg by mouth twice a day. The patient remains on a combination of Plavix and Eliquis 2.5 mg twice a day. No signs of any decompensated heart failure. Denies having any chest pain. No syncope. No altered mentation. His oxygenation is also stable and the patient has a pulse ox of 93% on room air oxygen. Seen today on 04/22/2022, patient remains in the ICU, he is on lidocaine drip at 1 mg/m, presently in sinus rhythm, not in any distress, patient is scheduled to undergo ablation today for recurrent ventricular tachycardia. He is on room air, he is relatively asymptomatic. Labs today including basic metabolic profile are normal Reevaluated today on 04/23/2022, patient underwent successful ablation yesterday, patient is now in sinus rhythm, doing well, relatively asymptomatic. He is on room air. Patient is not receiving any IV fluids, no infusions, overall the patient is doing great. Labs from today including basic metabolic profile and renal profile are normal. Calcium and magnesium are normal. Patient will likely be transferred to a monitor bed on the cardiac floor today, or could possibly be considered for discharge home if cleared by cardiology. Objective - Vital Signs Vital signs: Vital Signs Temp 98.2 F 04/23/22 08:00 Pulse 66 04/23/22 10:00 Resp 13 04/23/22 10:00 BP 146/89 04/23/22 10:00 Pulse Ox 89 L 04/23/22 10:00 FiO2 Intake & Output 04/22/22 04/23/22 04/23/22 18:59 06:59 18:59 Intake Total 2204.625 20 Output Total 3050 850 0 Balance -845.375 -830 0 Weight 101.1 kg 101.1 kg Intake: IV 2101.5 20 Lidocaine-D5w Pmx 2G/ 7.5 250Ml 2,000 mg In Dextrose/Water 1 250ml. bag @ 1 MG/MIN 7.5 mls/hr IV .Q24H KELLE Rx#: [id number] Magnesium Sulfate-D5w Pmx 200 1 gm In Dextrose/Water 1 100ml.bag @ 100 mls/hr IVPB Q1H KELLE Rx#: [id number] Sodium Chloride 0.9 40 20 Intake, IV Titration 103.125 Amount Lidocaine-D5w Pmx 2G/ 103.125 250Ml 2,000 mg In Dextrose/Water 1 250ml. bag @ 1 MG/MIN 7.5 mls/hr IV .Q24H KELLE Rx#: [id number] Output: Urine 3050 850 0 Other: Voiding Method Toilet Toilet Toilet Urinal Urinal Urinal # Voids 1 2 # Bowel Movements 1 - Exam Physical Exam: Revealed a 56-year-old white male in no distress. On room air, Head: Atraumatic, normocephalic HEENT:[Neck is supple.] [No neck masses.] [No thyromegaly.] [No JVD.] Chest: [Clear throughout, no crackles, no rhonchi, no wheezes.] Cardiac Exam: [Normal S1 and S2, no S3 gallop, no murmur.] Abdomen: [Soft, nontender, no megaly, no rebound, no guarding, normal bowel sounds.] Extremities: [No clubbing, no edema, no cyanosis.] Neurological Exam: [No focal neurologic deficit.] Alert oriented 3. Psychiatric: Normal mood affect and normal mental status examination. Skin: No rashes. - Labs CBC & Chem 7: 04/20/22 04:04 04/23/22 06:35 Labs: Abnormal Lab Results - Last 24 Hours (Table) 04/22/22 04/23/22 04/23/22 Range/Units 20:56 05:39 06:35 Glucose 148 H (74-99) mg/dL POC Glucose (mg/dL) 234 H 152 H (70-110) mg/dL Assessment and Plan Assessment: Impression: Wide-complex tachycardia, cardioverted in the ER, presently on lidocaine drip. Patient is also on Coreg and mexiletine. Status post ablation done on 04/22/2022, successful. Coronary artery disease and previous IA previous PCI 2 Ischemic cardiomyopathy and LV dysfunction with ejection fraction of 30% History of AICD placement. History of DVT Benign essential hypertension Type 2 diabetes History of esophageal stricture requiring dilatation History of GERD Dyslipidemia Recommendation: Resume cardiac meds as per cardiology Considered transfer the patient to a monitor bed on selective or possibly consider discharge planning if cleared by cardiology. Continue eliquis. Continue Plavix and aspirin. We will sign off and see the patient on when necessary basis. Time with Patient: Less than 30
[2022-04-23 11:28] LABS: Glucose,Whole Blood 156 mg/dL (70-110)
[2022-04-23] MEDS: SODIUM CHLORIDE 0.9% 1,000 ML IV SCH (11:31)
[2022-04-23 16:33] VITALS: BP 144/94; PULSE 66; RESP 15
--- NOTE | 2022-04-23 19:54 | PN ---
PROGRESS NOTE SUBJECTIVE: Alex is a 56-year-old gentleman who underwent EP procedure with ablation of ventricular tachycardia by Dr. Vaughan yesterday. His main problem has been oozing from the femoral venous access site. They have tried several things through last night without any success. The patient received Eliquis per Dr. Vaughan. He is also on aspirin, Plavix. OBJECTIVE: GENERAL: Comfortable at rest. VITAL SIGNS: Stable. CHEST: Reveals good air entry bilaterally. HEART: Reveals first and second heart sounds. No gallop, no murmur. ABDOMEN: Soft . EXTREMITIES: Did not reveal any edema. Right groin exam shows oozing from the access site. ASSESSMENT: 1. Sustained ventricular tachycardia, status post ablation. 2. History of atrial fibrillation. 3. History of congestive heart failure. 4. History of systolic heart failure. PLAN: I am going to put a FemoStop on to see if we can control the bleeding. Will stop Eliquis if okay with EP. Continue sotalol and rest of this medications. MMODL / IJN: [id number] /
--- NOTE | 2022-04-23 20:11 | P.DS ---
Providers Date of admission: 04/17/22 23:55 Attending physician: Peter Lubin Consults: 04/17/22 23:55 Consult Physician Routine Consulting Provider: [facility] Consult Reason/Comments: Persistent sinus tach vs SVT with abberancy, s/p cadioversion Do you want consulting provider notified?: Already Contacted Consult Physician Stat Consulting Provider: Kenyon Cabello Consult Reason/Comments: Persistent sinus tach, poss SVT with abberancy, s/p cardioversion Do you want consulting provider notified?: Already Contacted Primary care physician: [facility] Course: diagnoses: Wide complex tachycardia, V. tach v, status post cardioversion. Going for cardiac ablation 04/22 Postoperative bleeding from right groin surgical wound, status post stitches by sole leveler Dr. Lira per Staff Chest pain, could be related to cardiac causes. Improved History of coronary artery disease status post PCI 2 Ischemic cardiomyopathy status post AICD Hypertension Hyperlipidemia Diabetes mellitus History of GI bleed and iron deficiency anemia History of asthma, not an active tissue Hospital course: 56 years old male with multiple medical problems including asthma, coronary artery disease status post PCI 2 with history of ischemic cardiomyopathy status post AICD, hypertension, hyperlipidemia, hypothyroidism, iron deficiency anemia and iron treatment, diabetes mellitus, history of GI bleed, Patient presents because of chest pain that started last night about 7 PM about 5/10 in severity associated with breathing difficulty and sweating. Patient evaluated by his EP sole leveler Dr. Lira. Patient underwent ablation procedure yesterday for his ventricular tachycardia. Patient continued to be monitored in the ICU and has been followed closely by both cardiology and pulmon karolyn team. Today he has some bleeding from surgical wound, I talked to the bedside nurse after rounds, as per nurse's chrise Dr. Lira put 2 stitches in the wound and bleeding stopped. Patient was cleared for discharge by Dr. Lira and he wants patient to continue on liquids and Plavix. Also pulmonary team has cleared the patient for discharge today At that patient was sitting up in bed, mentation at baseline, denies chest pain or dyspnea, no other new complaint. I talked to the patient and he is agreeable to go home today earlier I talked to utilization review staff Any Villatoro requested patient wants to stable either be discharged on transfer to [facility] otherwise his medical insurance provider will not a for his stay. However as stated earlier patient clinically did stabilize after the procedure and he was cleared by both cardiology and pulmonary services. I talked to the patient and he told me he have enough Eliquis blood thinner until he sees Dr. Lira in 7-10 days upon discharge Patient denies any other new symptoms. Problems and management plan were discussed with the patient and he verbalized understanding and acceptance Patient was found stable and can be discharged home in guarded prognosis however he needs follow-up as an outpatient. Patient was instructed to follow up with PCP within one week and patient agrees patient was instructed to follow up with his sole leveler Dr. Lira in 1 week after discharge and he agrees and wants to Make his own appointment patient confirmed to me as all other prescriptions Physical exam Gen: patient is a AAOx3, no distress CVS: S1-S2, RRR, no murmur Lungs: B/L CTA, no wheezing Abdomen: soft, no distention, no tenderness, positive bowel sounds -Extremity: no leg edema or induration. Right groin wound is clean and closed, dressing in a Place. Time spent more than 35 minutes Patient Condition at Discharge: Fair Plan - Discharge Summary Discharge Rx Participant: No New Discharge Prescriptions: New Sotalol [Betapace] 80 mg PO BID #180 tablet Continue Clopidogrel [Plavix] 75 mg PO DAILY Pantoprazole [Protonix] 40 mg PO HS sitaGLIPtin PHOS/metFORMIN HCL [Janumet 50-1,000 mg Tablet] 1 tab PO BID Insulin Glargine,Hum.rec.anlog [Toujeo Solostar] 45 units SQ DAILY Atorvastatin [Lipitor] 40 mg PO DAILY Sacubitril/Valsartan [Entresto 24 mg-26 mg Tablet] 1 tab PO BID Furosemide [Lasix] 20 mg PO DAILY PRN PRN Reason: Edema ALPRAZolam [Xanax] 0.5 mg PO HS Magnesium Oxide [Mag-Ox] 400 mg PO DAILY #90 tab Zinc Gluconate [Zinc] 50 mg PO DAILY Cholecalciferol [Vitamin D3 (25 Mcg = 1000 Iu)] 50 mcg PO DAILY Apixaban [Eliquis] 2.5 mg PO BID #60 tab carvediloL [Coreg*] 12.5 mg PO BID-W/MEALS #180 tab Ascorbic Acid [Vitamin C] 500 mg PO DAILY Discontinued Aspirin 162.5 mg PO BID Mexiletine HCl 200 mg PO TID Sotalol [Betapace] 120 mg PO BID@0600,1800 #180 tab Discharge Medication List Clopidogrel [Plavix] 75 mg PO DAILY 07/06/14 [History] Pantoprazole [Protonix] 40 mg PO HS 04/30/15 [History] Atorvastatin [Lipitor] 40 mg PO DAILY 05/11/19 [History] Insulin Glargine,Hum.rec.anlog [Toujeo Solostar] 45 units SQ DAILY 05/11/19 [History] Sacubitril/Valsartan [Entresto 24 mg-26 mg Tablet] 1 tab PO BID 05/11/19 [History] sitaGLIPtin PHOS/metFORMIN HCL [Janumet 50-1,000 mg Tablet] 1 tab PO BID 05/11/19 [History] ALPRAZolam [Xanax] 0.5 mg PO HS 02/10/22 [History] Furosemide [Lasix] 20 mg PO DAILY PRN 02/10/22 [History] Magnesium Oxide [Mag-Ox] 400 mg PO DAILY #90 tab 02/12/22 [Rx] carvediloL [Coreg*] 12.5 mg PO BID-W/MEALS #180 tab 02/12/22 [Rx] Ascorbic Acid [Vitamin C] 500 mg PO DAILY 04/18/22 [History] Cholecalciferol [Vitamin D3 (25 Mcg = 1000 Iu)] 50 mcg PO DAILY 04/18/22 [History] Zinc Gluconate [Zinc] 50 mg PO DAILY 04/18/22 [History] Sotalol [Betapace] 80 mg PO BID #180 tablet 04/22/22 [Rx] Apixaban [Eliquis] 2.5 mg PO BID #60 tab 04/23/22 [Rx] Follow up Appointment(s)/Referral(s): Derik Vaughan MD [STAFF PHYSICIAN] - 1 Week Jermaine Degroot MD [Primary Care Provider] - 1-2 days Activity/Diet/Wound Care/Special Instructions: Post EP study - Ablation instructions 1. Keep access sites dry for 2 days. 2. No heavy lifting or straining for 2 days. 3. Avoid bending the hips repeatedly for 2 days. 4. You may go up and down stairs slowly Call if the following is noted 1. Bleeding, increasing swelling or pain at the access sites. 2. Increasing chest discomfort, especially upon taking a deep breath. 3. Increasing shortness of breath, at rest or with exertion. 4. Undue cough / phlegm 5. Difficulty or pain while swallowing. 6. Pain or change in color in the extremities. 7. Fever, chills, rigors. 8. Increasing headache or neurologic symptoms. 9. Dizziness, fainting, palpitations Discontinue sotalol 120 mg twice daily Discontinue mexiletine Restart sotalol at 80 mg twice daily Continue all other cardiac medications including magnesium heart healthy diet activity is restricted till you see your doctor we recommend to check your glucose 4 times a day before each meal and at bed time , keep the results in a log book and bring it to your doctor upon your appointment date if your glucose is less than 70 or more than 400 then call 911 and come to emergency room Discharge Disposition: HOME SELF-CARE
--- NOTE | 2022-04-29 13:04 | CDI ---
Documentation Clarification Form Date: 04/29/2022 12:15:03 PM From: Tita Jones RN CCDS Admit Date: 04/17/2022 11:55:00 PM Patient Name: Alex Monaco Visit Number: [id number] Discharge Date: 04/23/2022 4:40:00 PM ATTENTION: The Clinical Documentation Specialists (CDI) and [facility] Coding Staff appreciate your assistance in clarifying documentation. Please respond to the clarification below the line at the bottom and electronically sign. The CDI & [facility] Coding staff will review the response and follow-up if needed. Please note: Queries are made part of the Legal Health Record. If you have any questions, please contact the author of this message via ITS. Dr. Vahid Larsen Postoperative bleeding from right groin surgical wound, Discharge summary, 04/23 and patient had Cardiac ablation , 04/22. Additional clarification is requested regarding the relationship, if any, that exists between the diagnosis and the procedure. Patients Admitting Diagnosis: Sustained monomorphic ventricular tachycardia. Post-Operative Diagnosis: Sustained ventricular tachycardia, status post ablation Procedure performed: Cardiac ablation. History/Risk Factors: 56-year-old male presents to the ED with chest pain, difficulty breathing and sweating. Medical History: Two episodes of V-Tach in March 2022 has been evaluated by Dr. Jones, CAD status post PCI x 2, DM, PA, ACID and HTN. H&P, 04/18. Clinical Indicators: EKG, : Right bundle branch block; Left Ventricular Hypertrophy and ST change. Inferior Myocardia Infarction , probably old; Anterolateral Myocardial Infarction, of Indeterminate age Cardiology note, 04/23: Under went EP procedure with ablation of ventricular tachycardia by Dr. Vaughan yesterday. His main problem has been oozing from the femoral venous access site. They have tried several things through last night without any success. The patient received Eliquis per Dr. Vaughan. He is also on Aspirin and Plavix. Cardiology note, 04/23: Extremities: Did not reveal any edema. Right groin exam shows oozing from the access site. Treatment: 04/23: Two Stitches; 04/23 Femstop. 04/23, Cardiology note: Will Stop Eliquis if okay with EP. 04/18 04/21 Eliquis 2.5mg PO BID; 04/18- 04/23 Plavix 75mg PO Daily. What relationship, if any, exists between the diagnosis of and the procedure: [ ] Postoperative bleeding from the right groin is a complication of surgical procedure [ ] Postoperative bleeding from the right groin is related to patients co- morbid condition(s) of anticoagulant, antiplatelet & not a complication of the procedure [ ] Other please specify ____ [ ] Unable to determine (Template Last Revised: June 2020) its a question for the physician that did the proceedure MTDD
--- NOTE | 2022-05-01 09:15 | CDI ---
Documentation Clarification Form Date: 04/29/2022 12:15:03 PM From: Tita Jones RN CCDS Admit Date: 04/17/2022 11:55:00 PM Patient Name: Alex Monaco Visit Number: [id number] Discharge Date: 04/23/2022 4:40:00 PM ATTENTION: The Clinical Documentation Specialists (CDI) and [facility] Coding Staff appreciate your assistance in clarifying documentation. Please respond to the clarification below the line at the bottom and electronically sign. The CDI & [facility] Coding staff will review the response and follow-up if needed. Please note: Queries are made part of the Legal Health Record. If you have any questions, please contact the author of this message via ITS. Dr. Derik Vaughan MD Postoperative bleeding from right groin surgical wound, Discharge summary, 04/23 and patient had Cardiac ablation , 04/22. Additional clarification is requested regarding the relationship, if any, that exists between the diagnosis and the procedure. Patients Admitting Diagnosis: Sustained monomorphic ventricular tachycardia. Post-Operative Diagnosis: Sustained ventricular tachycardia, status post ablation Procedure performed: Cardiac ablation. History/Risk Factors: 56-year-old male presents to the ED with chest pain, difficulty breathing and sweating. Medical History: Two episodes of V-Tach in March 2022 has been evaluated by Dr. Jones, CAD status post PCI x 2, DM, DC, ACID and HTN. H&P, 04/18. Clinical Indicators: EKG, : Right bundle branch block; Left Ventricular Hypertrophy and ST change. Inferior Myocardia Infarction , probably old; Anterolateral Myocardial Infarction, of Indeterminate age Cardiology note, 04/23: Under went EP procedure with ablation of ventricular tachycardia by Dr. Vaughan yesterday. His main problem has been oozing from the femoral venous access site. They have tried several things through last night without any success. The patient received Eliquis per Dr. Vaughan. He is also on Aspirin and Plavix. Cardiology note, 04/23: Extremities: Did not reveal any edema. Right groin exam shows oozing from the access site. Treatment: 04/23: Two Stitches; 04/23 Femstop. 04/23, Cardiology note: Will Stop Eliquis if okay with EP. 04/18 04/21 Eliquis 2.5mg PO BID; 04/18- 04/23 Plavix 75mg PO Daily. What relationship, if any, exists between the diagnosis of and the procedure: [ ] Postoperative bleeding from the right groin is a complication of surgical procedure [ ] Postoperative bleeding from the right groin is related to patients co- morbid condition(s) of anticoagulant, antiplatelet & not a complication of the procedure [ ] Other please specify ____ [ ] Unable to determine (Template Last Revised: June 2020) This was minimal bleeding from the edge of the puncture site This was not a complication of the venous puncture site This was not a complication of the surgical procedure It was minimal bleeding from the track which was not appropriately diagnosed by nursing staff MACIED
== END 2022-04-23 16:40 | disposition home or self-care (01) | DRG 274 ==
LOC: EC 19:23 → 2SICU 23:55
PROVIDERS: ADMIT Hospitalist; ATTEND Hospitalist
PROC: 5A2204Z Restoration of Cardiac Rhythm, Single (ICD-10-PCS; 2022-04-18)
PROC: B246ZZZ Ultrasonography of Right and Left Heart (ICD-10-PCS; 2022-04-22)
PROC: 02583ZZ Destruction of Conduction Mechanism, Percutaneous Approach (ICD-10-PCS; principal; 2022-04-22 11:30)
PROC: 4A023FZ Measurement of Cardiac Rhythm, Percutaneous Approach (ICD-10-PCS; principal; 2022-04-22 11:30)
PROC: 4A0234Z Measurement of Cardiac Electrical Activity, Percutaneous Approach (ICD-10-PCS; 2022-04-22 11:30)
DX: I47.20 Ventricular tachycardia, unspecified (principal); I50.22 Chronic systolic (congestive) heart failure; I95.2 Hypotension due to drugs; I49.01 Ventricular fibrillation; R16.0 Hepatomegaly, not elsewhere classified; K22.2 Esophageal obstruction; I11.0 Hypertensive heart disease with heart failure; E11.9 Type 2 diabetes mellitus without complications; E03.9 Hypothyroidism, unspecified; D50.9 Iron deficiency anemia, unspecified; E78.5 Hyperlipidemia, unspecified; I47.1 Supraventricular tachycardia; I45.2 Bifascicular block; I25.5 Ischemic cardiomyopathy; I25.10 Atherosclerotic heart disease of native coronary artery without angina pectoris; T46.1X5A Adverse effect of calcium-channel blockers, initial encounter; I48.91 Unspecified atrial fibrillation; R58 Hemorrhage, not elsewhere classified; F41.9 Anxiety disorder, unspecified; K21.9 Gastro-esophageal reflux disease without esophagitis; Z79.02 Long term (current) use of antithrombotics/antiplatelets; Z79.899 Other long term (current) drug therapy; Z79.84 Long term (current) use of oral hypoglycemic drugs; Z82.49 Family history of ischemic heart disease and other diseases of the circulatory system; Z79.01 Long term (current) use of anticoagulants; Z95.810 Presence of automatic (implantable) cardiac defibrillator; Z95.5 Presence of coronary angioplasty implant and graft; I25.2 Old myocardial infarction; Z87.891 Personal history of nicotine dependence; Z79.4 Long term (current) use of insulin; Z88.0 Allergy status to penicillin; Z88.8 Allergy status to other drugs, medicaments and biological substances; Z86.718 Personal history of other venous thrombosis and embolism; Z86.16 Personal history of COVID-19
CPT/HCPCS: 36415; 71045; 80048; 80053; 83036; 83735; 83880; 84484; 85025; 92960; 93005; 93462; 93654; 93662; 96365; 96366; 96375; 96376; 99291

== ENCOUNTER → 2023-05-29 | Day surgery (SDC) | payer BC, MEDICARE ==
[2023-05-26 14:34] VITALS: BMI 30.8
[~2023-05-29] MED LIST changes: -CLINDAMYCIN 600 MG in DEXTROSE 5% IN WATER 50 ML IVPB STA; +GLYCOPYRROLATE 0.2 MG/ML 2 ML VIAL ONE; +KETAMINE HCL IN 0.9 % NACL 50 MG/5 ML SYRINGE ONE; +LACTATED RINGERS 1,000 ML IV SCH; +MIDAZOLAM 2 MG/2 ML VIAL ONE; +PROPOFOL 10 MG/ML 20 ML VIAL IV ONE; +SODIUM CHLORIDE 0.9% 1,000 ML IV SCH
[2023-05-29] MEDS: SODIUM CHLORIDE 0.9% 500 ML 500 ML IV ONE (11:54)
[2023-05-29 12:13] LABS: Glucose,Whole Blood 127 mg/dL (70-110)
[2023-05-29 12:19] LABS: Anisocytosis Slight; Basophils % (A) 1 %; Eosinophils # (A) 0.2 k/uL (0-0.7); Eosinophils % (A) 4 %; HCT 43.7 % (39.0-53.0); HGB 13.8 gm/dL (13.0-17.5); Hypochromasia Moderate; Lymphocytes # (A) 1.2 k/uL (1.0-4.8); Lymphocytes % (A) 19 %; MCH 26.1 pg (25.0-35.0); MCHC 31.5 g/dL (31.0-37.0); Mean Platelet Volume 10.6; Monocytes # (A) 0.4 k/uL (0-1.0); Monocytes % (A) 7 %; Neutrophils # (A) 4.2 k/uL (1.3-7.7); Neutrophils % (A) 68 %; Platelet Count 218 k/uL (150-450); RBC 5.27 m/uL (4.30-5.90); RDW 16.2 % (11.5-15.5); WBC 6.1 k/uL (3.8-10.6)
[2023-05-29 12:27] VITALS: RESP 16; TEMP 97
[2023-05-29 12:33] LABS: African American GFR (CKD) >90 (>60 ml/min/1.73 sqM); Anion Gap 8 mmol/L; Blood Urea Nitrogen 14 mg/dL (9-20); Calcium 9.3 mg/dL (8.4-10.2); Carbon Dioxide 28 mmol/L (22-30); Chloride 103 mmol/L (98-107); Glucose 135 mg/dL (74-99); Non-African American GFR(CKD) >90 (>60 ml/min/1.73 sqM); Sodium 139 mmol/L (137-145)
--- NOTE | 2023-05-29 14:56 | P.EPPROC ---
- EP Procedure Note Electrophysiology Procedure Note: Diagnosis Ventricular tachycardia average cycle length of 309 ms intracardiac electrograms very similar to sinus beats 89 to 90% template match Received antitachycardia pacing Final diagnosis no inducible ventricular tachycardia with ventricular stimulation on and off Isopril Clinical diagnosis, likely bundle branch reentry Patient has a left bundle branch block morphology at baseline with a QRS width of 172 ms Details Under conscious sedation patient underwent ventricular stimulation with up to triple extrastimuli at 3 different drivetrain's Long short sequences delivered up to triple extrastimuli Isopril infused wide open and then 2 mics Ventricular stimulation protocol up to triple extrastimuli as well as with long short sequences up to triple extrastimuli and burst stimulation performed No sustained inducible VT Plan Patient has severe ischemic cardiomyopathy class II CHF and a very wide QRS of a left bundle branch block morphology An upgrade to a biventricular ICD is recommended electively In terms of ablation for VT, bundle branch reentry He has significant amount of septal scar that made it difficult to deliver energy but we were successful in the past Recommendation would be either to use a catheter with a 90 W/h for ablation of the right bundle or individually ablate the left anterior and left posterior fascicles I would recommend this only if he has recurrence of VT particularly if he receives a shock The other options include bipolar ablation or alcohol ablation in the septum I would avoid both these since this would result in development of an even larger scar/akinetic area in the septum that may impact his overall LV function and functioning of her biventricular device It would be appropriate to limit the ablation since he has severe LV dysfunction and is a candidate for biventricular pacing in the future Avoid left bundle pacing in view of his septal scar
[2023-05-29] MEDS: metFORMIN 500 MG TAB PO STA (16:02)
[2023-05-29] MEDS: carvediloL 12.5 MG TAB PO STA (16:02)
[2023-05-29] MEDS: LINAGLIPTIN 5 MG TABLET PO SCH (16:02)
[2023-05-29 19:20] VITALS: BP 123/77; PULSE 58
== END | disposition home or self-care (01) ==
LOC: CATHEP 11:29
PROVIDERS: ATTEND Internal Medicine Clinical Cardiac Electrophysiology
DX: I47.20 Ventricular tachycardia, unspecified (principal); I25.5 Ischemic cardiomyopathy; I25.10 Atherosclerotic heart disease of native coronary artery without angina pectoris; E11.9 Type 2 diabetes mellitus without complications; Z79.4 Long term (current) use of insulin; Z95.0 Presence of cardiac pacemaker; Z79.899 Other long term (current) drug therapy
CPT/HCPCS: 93642; 80048; 84443; 85025; J2250; J2704

== ENCOUNTER 2023-12-09 05:49 | Day surgery (SDC) | payer BC, MEDICARE ==
[2023-12-09 06:30] LABS: Glucose,Whole Blood 152 mg/dL (70-110)
[2023-12-09] MEDS: SODIUM CHLORIDE 0.9% 1,000 ML IV SCH (06:48)
[2023-12-09] MEDS: IV FLUID CONTINUATION 1,000 ML IV ONE (06:49)
[2023-12-09 07:11] LABS: Anisocytosis Slight; Basophils # (A) 0.1 k/uL (0-0.2); Basophils % (A) 1 %; Eosinophils # (A) 0.3 k/uL (0-0.7); Eosinophils % (A) 4 %; HCT 47.7 % (39.0-53.0); Hypochromasia Marked; Lymphocytes # (A) 2.1 k/uL (1.0-4.8); Lymphocytes % (A) 27 %; MCHC 31.5 g/dL (31.0-37.0); MCV 82.5 fL (80.0-100.0); Monocytes # (A) 0.6 k/uL (0-1.0); Monocytes % (A) 8 %; Neutrophils # (A) 4.4 k/uL (1.3-7.7); Neutrophils % (A) 57 %; Platelet Count 280 k/uL (150-450); RBC 5.78 m/uL (4.30-5.90); RDW 17.5 % (11.5-15.5); WBC 7.7 k/uL (3.8-10.6)
[2023-12-09] MEDS ORDERED: fentaNYL (PF) 50 MCG/ML 2 ML AMP ONE (07:18)
[2023-12-09] MEDS ORDERED: MIDAZOLAM 2 MG/2 ML VIAL ONE (07:18)
[2023-12-09] MEDS ORDERED: HEPARIN SODIUM,PORCINE 10,000 UNIT/ML 1 ML VIAL ONE (07:18)
[2023-12-09] MEDS ORDERED: FUROSEMIDE 10 MG/ML 2 ML VIAL ONE (07:18)
[2023-12-09] MEDS ORDERED: PROPOFOL 10 MG/ML 20 ML VIAL IV ONE (07:18)
[2023-12-09 07:20] LABS: African American GFR (CKD) 79 (>60 ml/min/1.73 sqM); Anion Gap 12 mmol/L; Blood Urea Nitrogen 21 mg/dL (9-20); Calcium 10.3 mg/dL (8.4-10.2); Carbon Dioxide 26 mmol/L (22-30); Chloride 98 mmol/L (98-107); Glucose 131 mg/dL (74-99); Non-African American GFR(CKD) 68 (>60 ml/min/1.73 sqM); Potassium 4.1 mmol/L (3.5-5.1); Sodium 136 mmol/L (137-145)
[2023-12-09] MEDS ORDERED: LIDOCAINE 1% INJ 10MG/ML (20 ML MDV) ONE ×2 (07:44→09:23)
[2023-12-09] MEDS: CLINDAMYCIN 900 MG in DEXTROSE 5% IN WATER 50 ML IVPB STA (07:56)
[2023-12-09] MEDS: LIDOCAINE 1% INJ 10MG/ML (20 ML MDV) SQ ONE (08:14)
[2023-12-09] MEDS: IOPAMIDOL-370 100ML BTL INJ ONE ×3 (09:43)
[2023-12-09] MEDS: HEPARIN SODIUM (1,000 UNIT/ML) 1,000 UNIT in SODIUM CHLORIDE 0.9% 1,000 ML IRRIGATION ONE (14:30)
--- NOTE | 2023-12-09 15:41 | P.HPCAR ---
History of Present Illness This is Dr. Vaughan dictating an H/P on this patient The patient was interviewed and examined IMPRESSION / ASSESSMENT: Recurrent ventricular tachycardia despite sotalol Likely bundle branch reentry with the antegrade limb down the left bundle and the retrograde limb of the right bundle Severe ischemic cardiomyopathy with severe LV dysfunction anterior septal and apical scar Dilated LV with CHF status post single-chamber ICD Right bundle branch block pattern at baseline PLAN: Diagnose EP study and VT ablation Left upper extremity venogram to plan for upgrade in the future to a biventricular ICD HPI Patient has had recurrent episodes of VT requiring ICD therapies. This VT has the same intrinsic QRS as his tus[place] rhythm consistent with bundle branch reentry. He has a right bundle branch block at baseline Previously he has undergone ablation for bundle branch reentry with ablation of the right bundle. This was a very difficult procedure on account of septal scar and it was very difficult to locate the right peroneal signals. This was mapped successfully but he has had a recurrence but this time his bundle branch reentry seems to be activating via the left bundle antegradely He has congestive heart failure class II but has tolerated his cardiac medications well He denies any chest discomfort dizziness lightheadedness palpitations fever chills cough ROS: No fever chills or rigors, no cough, phlegm or expectoration, no nausea, vomiting or diarrhea, no hematuria, dysuria, no musculoskeletal complaints, no strokes or seizures, no skin lesions. EXAMINATION: Blood pressure 114/77 mmHg pulse rate in the 80s and 90s afebrile Heart sounds S1-S2 normal no murmurs or gallop no rub Breath sounds are clear no rhonchi no crackles No lower extremity edema No orthopnea REVIEW OF LABS, ECG & MEDICAL DATA White count 7.7, hemoglobin 15, platelet count 280,000 Sodium 136, potassium 4.1 BUN 21 creatinine 1.2 TSH 6.7 transfer to Physical Exam Vitals: Vital Signs Temp Pulse Resp BP Pulse Ox 12/09/23 06:46 98.1 F 93 18 114/77 98 Intake and Output 12/09/23 12/09/23 12/09/23 06:59 14:59 22:59 Intake Total 1786 Balance 1786 Intake: IV 1786 Other: Weight 106.5 kg Past Medical History Past Medical History: Asthma, Coronary Artery Disease (CAD), Diabetes Mellitus, GERD/Reflux, GI Bleed, Hyperlipidemia, Hypertension, Myocardial Infarction (MO), Supraventricular Tachycardia (SVT) Additional Past Medical History / Comment(s): see Dr Vaughan's H&P,ASTHMA CHILD, [place] X2, CAD status post PCI 2 ischemic cardiopathy status post AICD, pt stated "esophageal stricture status post esophageal dilatation resulted from acid reflux and scar tissue" Last Myocardial Infarction Date:: 2007 History of Any Multi-Drug Resistant Organisms: None Reported Past Surgical History: AICD, Heart Catheterization With Stent, Orthopedic Surgery, Pacemaker Additional Past Surgical History / Comment(s): STENT X6, KNEE ARTHROSCOPY, COLONOSCOPY, EGD, CARDIOVERSION Past Anesthesia/Blood Transfusion Reactions: No Reported Reaction Additional Past Anesthesia/Blood Transfusion Reaction / Comment(s): no hx blood transfusion Date of Last Stent Placement:: 05-02-2015 Type of Cardiac Device: Biventricular Pacemaker, AICD Device Placement Date:: 2007-ST [facility]OHINI-LT CHEST Smoking Status: Former smoker - Past Family History Mother Family Medical History: Coronary Artery Disease (CAD), Hyperlipidemia, Hypertension Father Family Medical History: COPD, Coronary Artery Disease (CAD) Brother(s) Family Medical History: No Reported History Sister(s) Family Medical History: No Reported History Daughter(s) Family Medical History: No Reported History Son(s) Family Medical History: No Reported History Physical Examination Vital Signs Temp Pulse Resp BP Pulse Ox 12/09/23 06:46 98.1 F 93 18 114/77 98 Intake and Output 12/09/23 12/09/23 12/09/23 06:59 14:59 22:59 Intake Total 1786 Balance 1786 Intake: IV 1786 Other: Weight 106.5 kg Results 12/09/23 06:20 12/09/23 06:20 CBC 12/09/23 Range/Units 06:20 WBC 7.7 (3.8-10.6) k/uL RBC 5.78 (4.30-5.90) m/uL Hgb 15.0 (13.0-17.5) gm/dL Hct 47.7 (39.0-53.0) % Plt Count 280 (150-450) k/uL Comprehensive Metabolic Panel 12/09/23 Range/Units 06:20 Sodium 136 L (137-145) mmol/L Potassium 4.1 (3.5-5.1) mmol/L Chloride 98 (98-107) mmol/L Carbon Dioxide 26 (22-30) mmol/L BUN 21 H (9-20) mg/dL Creatinine 1.19 (0.66-1.25) mg/dL Glucose 131 H (74-99) mg/dL Calcium 10.3 H (8.4-10.2) mg/dL Current Medications Generic Name Dose Route Start Last Admin Trade Name Freq PRN Reason Stop Dose Admin Sodium Chloride 1,000 mls @ 50 mls/hr 12/09/23 06:07 12/09/23 06:48 Saline 0.9% IV 01/08/24 06:06 50 mls/hr .Q20H KELLE Administration Intake and Output 12/09/23 12/09/23 12/09/23 06:59 14:59 22:59 Intake Total 1786 Balance 1786 Intake: IV 1786 Other: Weight 106.5 kg 12/09/23 06:20 12/09/23 06:20
--- NOTE | 2023-12-09 16:03 | P.EPPROC ---
- EP Procedure Note Electrophysiology Procedure Note: Dr. Vaughan dictating the electrophysiology procedure note on the patient Alex Monaco Diagnostic EP study and VT ablation Indication Recurrent VT requiring ICD therapies, known ischemic cardiomyopathy, likely bundle branch reentry Final diagnosis 1. Bundle branch reentry with the left posterior fascicle as the antegrade limb and the right bundle as the retrograde limb. This ventricular tachycardia was successfully induced with triple extrastimuli and entrain from the septum. The retrograde hiss was also entrained from the septum. It had right bundle, left anterior fascicular branch block morphology identical with his intrinsic VT. Successful ablation performed and tachycardia rendered noninducible 2. Second ventricular tachycardia from the anterior lateral wall of the LV closer to the inferior apex. Successful pace mapping of the site which was at the edge of the scar and successful ablation performed . No inducible VT with triple extrastimuli at the end of the procedure Left upper extremity venogram revealed a patent left subclavian vein Details Patient is brought to the EP lab in a fasting state. Written informed consent was obtained prior to the procedure. The procedure was performed under conscious sedation. IV antibiotics administered. His [employer] ICD was interrogated and reprogrammed. VT therapies were turned off, VF therapies were turned off. 2 venous sheaths were placed in the left femoral vein and where these diagnostic catheters were positioned in the right ventricle and the His bundle area. A full diagnostic EP study was performed. Right femoral artery sheath was placed and secured. Right femoral artery angiogram was performed to confirm that the access site was above the profunda origin prior to removal and closure with Perclose device. Sinus cycle length 818 ms, PA interval 138 ms, QRS 159 ms and QT 418 ms AH 76 and HV 58 ms Intrinsic QRS morphology right bundle branch block left anterior fascicular block With extrastimulation from the right ventricular septum ventricular tachycardia was induced with triple extrastimuli at 400/260/200/260 ms. This morphology was virtually identical to his intrinsic QRS. Right bundle branch block with left anterior fascicular block morphology. [Antegrade limb = left posterior fascicle, retrograde limb right bundle] and retrograde HIS noted after each QRS. The apparent HV time was almost 90 ms. The VH interval was greater than 166 ms Entrainment of the ventricular tachycardia was performed from the RV septum and while the post pacing interval was long on account of the pacing site being on the right side the retrograde HIS was driven at the same pacing cycle length. Post pacing interval minus tachycardia cycle length was 108 ms since the antegr sameer limb was the left posterior fascicle Patient was hypertensive to almost 50 mmHg systolic blood pressure. Burst stimulation performed to terminate the VT. Voltage mapping of the left ventricle was performed especially along the septum The HIS bundle signals were sought as well as the left posterior fascicle signals. While the His bundle signals were readily mapped, it took an extremely long time to map for the left posterior fascicular signals on account of extensive septal scar which made it difficult to find signals. It took several hours of detailed mapping to find in the left posterior signal and perform successful ablation. Immediately the QRS axis changed to an inferiorly directed axis, right bundle branch block. Ventricular extra stimulation up to triple extrastimuli thereafter did not induce the bundle branch reentry. In the process of trying to induce the bundle branch reentry, second ventricular tachycardia was induced with an atypical right bundle branch block pattern with a right superior axis. This VT also required antitachycardia pacing since it was fast with associated hypotension. Successful antitachycardia pacing was performed. Thereafter pace mapping was performed to locate the approximate region of region. This correlated with the age of the anterolateral scar closer to the inferior apex. There was a pocket of healthy tissue at the edge of his scar that connected to the rest of the ventricle through a narrow channel. The pace map here was 93% concordant with SVT. Successful RF ablation was performed here and both the center as well as the isthmus were ablated and RF lesions were delivered around this region to encircle the site. Good contact force in power was used. Following this with triple extrastimuli this VT could not be reindu mitchell at the end of the procedure. Vascade venous sheaths were used to close the left sided access sites. Perclose was used to close the right femoral artery sheath Following that left upper extremity venogram was performed and 10 cc of IV dye injected. Patent left subclavian/axillary venous system Cinefluoroscopy of the lead at the end of the procedure revealed dual coil lead in stable position no dislodgment The ICD was interrogated and then reprogrammed once again
[2023-12-09] MEDS ORDERED: ACETAMINOPHEN TAB 325 MG TAB PO PRN (16:04)
[2023-12-09 17:15] LABS: Glucose,Whole Blood 122 mg/dL (70-110)
[2023-12-09] MEDS: carvediloL 12.5 MG TAB PO SCH (18:04)
[2023-12-09] MEDS: SPIRONOLACTONE 25 MG TAB PO SCH (18:05)
[2023-12-09] MEDS: ACETAMINOPHEN IV (For NPO) 1,000 MG in EMPTY BAG 1 BAG IVPB ONE (19:50)
[2023-12-09 20:15] LABS: Glucose,Whole Blood 135 mg/dL (70-110)
[2023-12-09] MEDS: LINAGLIPTIN 5 MG TABLET PO SCH (20:17)
[2023-12-09] MEDS: metFORMIN 500 MG TAB PO SCH (20:17)
[2023-12-09] MEDS: SACUBITRIL/VALSARTAN 49 MG-51 MG TABLET PO SCH (20:20)
[2023-12-09] MEDS: SOTALOL 80 MG TAB PO SCH (20:20)
[2023-12-09] MEDS: ALPRAZolam 0.5 MG TAB PO SCH (20:21)
[2023-12-09] MEDS: ASPIRIN 81 MG PO STA (20:21)
[2023-12-09] MEDS: CLOPIDOGREL 75 MG TAB PO STA (20:21)
[2023-12-09] MEDS: ARTIFICIAL TEARS-HYPROMELLOSE DROPS 15 ML BTL LEFT EYE PRN (22:03)
[2023-12-10 06:08] LABS: Glucose,Whole Blood 104 mg/dL (70-110)
--- NOTE | 2023-12-10 08:19 | P.PRLE ---
RE: Alex Monaco Dear Melissa Alex underwent a diagnostic EP study and had 2 inducible ventricular tachycardias Both was successfully ablated and there were rendered noninducible While he will continue all his cardiomyopathy medications, I have stopped mexiletine but he will still continue sotalol 80 mg twice daily He tolerated the procedure well without any acute complications Thank you for entrusting me with the care of the patient Warm regards Sincerely Derik Vaughan
--- NOTE | 2023-12-10 08:20 | P.DS ---
Providers Attending physician: Derik Vaughan Primary care physician: [facility] Course: Patient is doing well. No chest discomfort dizziness lightheadedness He is ambulating around the room and going to the bathroom No symptoms Groins of healed well no hematoma no swelling On examination blood pressure 90/60 mmHg pulse rate in the 60s afebrile Normal heart sounds Normal breath sounds no crackles no rhonchi No JVD no lower extremity edema Orthopnea No hematoma in either groin bilaterally Impression Bundle branch reentry, antegrade limb left posterior fascicle, retrograde limb right bundle Successful mapping and ablation of the VT Second VT induced at the edge of the anterior scar more apical and inferior, successful ablation Currently the patient has a right bundle branch block left posterior fascicular block since he is status post ablation of the right bundle 2 years back and now the left posterior fascicle Wide QRS, severe ischemic cardiomyopathy dilated left ventricle congestive heart failure class II On guideline directed medical treatment Type 2 diabetes Plan discontinue mexiletine Continue sotalol 80 mg twice daily Continue spironolactone Entresto magnesium Plavix atorvastatin and carvedilol Discharge home today Follow-up in 7 to 10 days in the office Device clinic follow-up in 4 to 6 weeks Plan - Discharge Summary New Discharge Prescriptions: Continue Clopidogrel [Plavix] 75 mg PO DAILY Pantoprazole [Protonix] 40 mg PO DAILY sitaGLIPtin PHOS/metFORMIN HCL [Janumet 50-1,000 mg Tablet] 1 tab PO BID Insulin Glargine,Hum.rec.anlog [Toujeo Solostar] 45 units SQ DAILY Atorvastatin [Lipitor] 40 mg PO DAILY ALPRAZolam [Xanax] 0.5 mg PO HS Magnesium Oxide [Mag-Ox] 400 mg PO DAILY #90 tab Cholecalciferol [Vitamin D3 (25 Mcg = 1000 Iu)] 50 mcg PO DAILY Sotalol [Betapace] 80 mg PO BID #180 tablet Aspirin EC [Ecotrin Low Dose] 81 mg PO DAILY Empagliflozin [Jardiance] 25 mg PO DAILY Spironolactone 25 mg PO DIRECTED carvediloL [Coreg*] 12.5 mg PO BID-W/MEALS #180 tab Ascorbic Acid [Vitamin C] 500 mg PO DAILY Sacubitril/Valsartan [Entresto 49 mg-51 mg Tablet] 1 each PO BID L.acidoph,Paracasei, B.lactis [Probiotic] 1 each PO DAILY Discharge Medication List Clopidogrel [Plavix] 75 mg PO DAILY 07/06/14 [History] Pantoprazole [Protonix] 40 mg PO DAILY 04/30/15 [History] Atorvastatin [Lipitor] 40 mg PO DAILY 05/11/19 [History] Insulin Glargine,Hum.rec.anlog [Toujeo Solostar] 45 units SQ DAILY 05/11/19 [History] sitaGLIPtin PHOS/metFORMIN HCL [Janumet 50-1,000 mg Tablet] 1 tab PO BID 05/11/19 [History] ALPRAZolam [Xanax] 0.5 mg PO HS 02/10/22 [History] Magnesium Oxide [Mag-Ox] 400 mg PO DAILY #90 tab 02/12/22 [Rx] carvediloL [Coreg*] 12.5 mg PO BID-W/MEALS #180 tab 02/12/22 [Rx] Ascorbic Acid [Vitamin C] 500 mg PO DAILY 04/18/22 [History] Cholecalciferol [Vitamin D3 (25 Mcg = 1000 Iu)] 50 mcg PO DAILY 04/18/22 [History] Sotalol [Betapace] 80 mg PO BID #180 tablet 04/22/22 [Rx] Aspirin EC [Ecotrin Low Dose] 81 mg PO DAILY 05/26/23 [History] L.acidoph,Paracasei, B.lactis [Probiotic] 1 each PO DAILY 05/26/23 [History] Sacubitril/Valsartan [Entresto 49 mg-51 mg Tablet] 1 each PO BID 05/26/23 [History] Empagliflozin [Jardiance] 25 mg PO DAILY 12/09/23 [History] Spironolactone 25 mg PO DIRECTED 12/09/23 [History] Follow up Appointment(s)/Referral(s): Derik Vaughan MD [STAFF PHYSICIAN] - 1 Week Activity/Diet/Wound Care/Special Instructions: Post EP study - Ablation instructions 1. Keep access sites dry for 2 days. 2. No heavy lifting or straining for 2 days. 3. Avoid bending the hips repeatedly for 2 days. 4. You may go up and down stairs slowly Call if the following is noted 1. Bleeding, increasing swelling or pain at the access sites. 2. Increasing chest discomfort, especially upon taking a deep breath. 3. Increasing shortness of breath, at rest or with exertion. 4. Undue cough / phlegm 5. Difficulty or pain while swallowing. 6. Pain or change in color in the extremities. 7. Fever, chills, rigors. 8. Increasing headache or neurologic symptoms. 9. Dizziness, fainting, palpitations Stop mexiletine. Continue all other medications
[2023-12-10 08:27] LABS: Glucose,Whole Blood 154 mg/dL (70-110)
[2023-12-10] MEDS: CLOPIDOGREL 75 MG TAB PO SCH (08:31)
[2023-12-10] MEDS: INSULIN DETEMIR (LEVEMIR) 100 UNIT/ML SYR SQ SCH (08:31)
[2023-12-10] MEDS: DAPAGLIFLOZIN PROPANEDIOL 10 MG TABLET PO SCH (08:31)
[2023-12-10] MEDS: ASPIRIN 81 MG PO SCH (08:31)
[2023-12-10] MEDS: PANTOPRAZOLE 40 MG TABLET PO SCH (08:31)
[2023-12-10] MEDS: ATORVASTATIN 40 MG TAB PO SCH (08:31)
[2023-12-10] MEDS: MAGNESIUM OXIDE 400 MG TAB PO SCH (08:31)
[2023-12-10 10:17] VITALS: BP 107/72; PULSE 71; RESP 16; TEMP 97.6
== END 2023-12-10 10:38 | disposition home or self-care (01) ==
LOC: CATHEP 05:49 → 6NMEDSUR 14:37 → CATHEP 12-10 10:38
PROVIDERS: ATTEND Internal Medicine Clinical Cardiac Electrophysiology
DX: I47.20 Ventricular tachycardia, unspecified (principal); I25.5 Ischemic cardiomyopathy; I45.2 Bifascicular block; I11.0 Hypertensive heart disease with heart failure; I50.9 Heart failure, unspecified; I25.2 Old myocardial infarction; I25.10 Atherosclerotic heart disease of native coronary artery without angina pectoris; E11.9 Type 2 diabetes mellitus without complications; E78.5 Hyperlipidemia, unspecified; K21.9 Gastro-esophageal reflux disease without esophagitis; Z88.0 Allergy status to penicillin; Z88.5 Allergy status to narcotic agent; Z82.49 Family history of ischemic heart disease and other diseases of the circulatory system; Z87.891 Personal history of nicotine dependence; Z79.4 Long term (current) use of insulin; Z79.82 Long term (current) use of aspirin; Z79.84 Long term (current) use of oral hypoglycemic drugs; Z79.899 Other long term (current) drug therapy; Z79.02 Long term (current) use of antithrombotics/antiplatelets; Z95.810 Presence of automatic (implantable) cardiac defibrillator
CPT/HCPCS: 80048; 84443; 85025; 86850; 86900; 86901; 93005; 93654

== ENCOUNTER 2024-05-06 08:51 | Day surgery (SDC) | payer BC, MEDICARE ==
[2024-05-06] MEDS ORDERED: VANCOMYCIN IV PER PHARMACY 1 EACH MISC MISCELLANE PRN (09:14)
[2024-05-06 09:38] LABS: Anisocytosis Slight; Basophils % (A) 0 %; Eosinophils # (A) 0.3 k/uL (0-0.7); Eosinophils % (A) 5 %; HCT 41.3 % (39.0-53.0); HGB 12.9 gm/dL (13.0-17.5); Hypochromasia Marked; Lymphocytes # (A) 1.5 k/uL (1.0-4.8); Lymphocytes % (A) 22 %; MCHC 31.2 g/dL (31.0-37.0); MCV 80.1 fL (80.0-100.0); Mean Platelet Volume 10.1; Microcytosis Slight; Monocytes # (A) 0.5 k/uL (0-1.0); Monocytes % (A) 7 %; Neutrophils # (A) 4.5 k/uL (1.3-7.7); Neutrophils % (A) 64 %; Platelet Count 251 k/uL (150-450); Poikilocytosis Slight; RBC 5.16 m/uL (4.30-5.90); RDW 18.7 % (11.5-15.5)
[2024-05-06 09:42] LABS: Glucose,Whole Blood 140 mg/dL (70-110)
[2024-05-06] MEDS: VANCOMYCIN 1,500 MG in SODIUM CHLORIDE 0.9% 500 ML 500 ML IVPB PRN (09:50)
[2024-05-06 09:56] LABS: African American GFR (CKD) >90 (>60 ml/min/1.73 sqM); Anion Gap 10 mmol/L; Blood Urea Nitrogen 19 mg/dL (9-20); Calcium 9.6 mg/dL (8.4-10.2); Carbon Dioxide 30 mmol/L (22-30); Chloride 99 mmol/L (98-107); Glucose 154 mg/dL (74-99); Non-African American GFR(CKD) 85 (>60 ml/min/1.73 sqM); Potassium 3.5 mmol/L (3.5-5.1); Sodium 139 mmol/L (137-145)
[2024-05-06] MEDS ORDERED: KETAMINE HCL IN 0.9 % NACL 50 MG/5 ML SYRINGE ONE (10:19)
[2024-05-06] MEDS ORDERED: PROPOFOL 10 MG/ML 20 ML VIAL IV ONE (10:19)
[2024-05-06] MEDS ORDERED: fentaNYL (PF) 50 MCG/ML 2 ML AMP ONE (10:19)
[2024-05-06] MEDS ORDERED: MIDAZOLAM 2 MG/2 ML VIAL ONE (10:19)
[2024-05-06] MEDS ORDERED: diphenhydrAMINE 50 MG/ML 1 ML VIAL ONE (10:19)
[2024-05-06] MEDS: ceFAZolin 1 GM in SODIUM CHLORIDE 0.9% IRRIG BTL 250 ML IRRIGATION PRN (10:59)
[2024-05-06] MEDS: HEPARIN SODIUM,PORCINE (1 ML) 2,500 UNIT in SODIUM CHLORIDE 0.9% 250 ML IRRIGATION ONE (10:59)
[2024-05-06] MEDS: LIDOCAINE 1% INJ 10MG/ML (20 ML MDV) SQ ONE (11:04)
[2024-05-06] MEDS: ROPIVACAINE 5 MG/ML 30 ML VIAL MISCELLANE ONE (11:04)
[2024-05-06] MEDS: IOPAMIDOL-370 100ML BTL INJ ONE (12:38)
[2024-05-06] MEDS: IV FLUID CONTINUATION 1,000 ML IV ONE (13:35)
[2024-05-06] MEDS: SODIUM CHLORIDE 0.9% 1,000 ML IV SCH ×2 (15:00)
--- NOTE | 2024-05-06 15:20 | P.EPPROC ---
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 And an atrial lead LV lead in the anterolateral LV vein U-shaped coronary sinus with a large funnel-shaped os. A CS catheter was used for mapping from the femoral vein. The CS ostium was pulled cephalad to straighten the Brie allowing access where the left pectoral venous access Upgrade of his single-chamber ICD to a biventricular ICD with implantation of an atrial lead, LV lead Mapping of the coronary sinus separately from the right femoral vein venous a ccess Extended procedure duration on account of the difficulties encountered with the coronary sinus anatomy Details Patient was brought to the EP lab in a fasting state. Written informed consent was obtained prior to the procedure. Left upper extremity venogram was performed. Patent left subclavian and axillary venous system IV antibiotics include IV vancomycin administered. Local anesthesia given. Incision made directly of the previous surgical site. The scar was excised. The device was explanted. Partial capsulectomy was performed. Thick capsule around the lead but carefully dissected out. Lead was functioning normally thereafter this was a [employer] dual coil ICD lead. 2 venous accesses in the left axillary vein. Sheaths placed. First a coronary sinus catheter was placed in the coronary sinus. However the sheath could not be passed over this across the coronary sinus os on account of the tortuosity and a U-shaped coronary sinus os. Multiple attempts were made but the CS catheter would dislodge every time the sheath was attempted to be passed into the coronary sinus body. Therefore an 8 [place] sheath was then placed from the right femoral vein in stable condition. A coronary sinus catheter was used to map the coronary sinus from the right femoral vein access. Coronary sinus recording and pacing was performed. This allowed the curvature of the coronary sinus os area to straighten out. Following that the coronary sinus catheter was increased from the left pectoral axis and the sheath was comfortably passed over the nondeflectable CS catheter. The sheath was placed in the distal coronary sinus. The coronary sinus catheter from the right femoral vein was then removed. Venous access from the right femoral vein was closed with a Vascade. Coronary sinus venography was performed. There was a very large lateral/anterolateral LV vein which was targeted. Initially wide spaced López lead was placed but the proximal pole was very close to the CS main body. There with a standard lead with standard spacing of the LV electrodes was used. And over the guidewire exchange was made and the lead was placed successfully in very stable position Very subtle intermittent diaphragmatic stimulation from poles 3-4 that could not be reproduced again in the lab thresholds under 2.5 V Following that the atrial lead was placed in the right atrial appendage. This was screwed in and tested. Sheaths were removed and the resecured to the underlying pectoralis muscle the pocket was irrigated with antibiotic solution and hemostatic mesh was placed in the pocket. Antibiotic mesh was placed in the pocket the old generator was explanted. The new generator López [place] heart failure was implanted. Leads were connected to the generator and placed in the pocket The pocket was closed in 3 layers and dressed per protocol. A compression bandage was applied over this. This was a long procedure on account of the anatomy of the coronary sinus os area that did not allow passage of the standard sheaths over the nondeflectable coronary sinus catheters. Therefore this had to be attempted from below coronary sinus mapping was performed with a different coronary sinus deflectable catheter from the right femoral vein. This allowed straightening of the curvature of the coronary sinus body at its os permitting placement of the sheath and then the LV lead Atrial pacing threshold 1 V at 0.5 ms, P waves 4.4 mV and pacing impedance 460 ohms Chronic RV lead pacing threshold 0.7 V at 0.5 ms, R waves 8 mV and pacing impedance 540 ohms LV pacing threshold 1 V at 0.5 ms, M2-M3 and a pacing impedance of 610 ohms High-voltage impedance 66 ohms LV offset 0, simultaneous pacing DDDR 60-120, paced AV delay 170 ms. Appropriate antitachycardia pacing cardioversion and defibrillation as programmed. All cardioversions and defibrillation was at maximum output
[2024-05-06] MEDS: ACETAMINOPHEN IV (For NPO) 1,000 MG in EMPTY BAG 1 BAG IVPB ONE (15:53)
[2024-05-06] MEDS: carvediloL 6.25 MG TAB PO SCH (18:37)
[2024-05-06] MEDS: SACUBITRIL/VALSARTAN 49 MG-51 MG TABLET PO SCH (20:12)
[2024-05-06] MEDS: SOTALOL 80 MG TAB PO SCH (20:13)
[2024-05-06] MEDS: ACETAMINOPHEN TAB 325 MG TAB PO PRN (20:32)
[2024-05-06] MEDS: ALPRAZolam 0.5 MG TAB PO SCH (22:07)
[2024-05-07 07:42] VITALS: BP 151/90; PULSE 64; RESP 16; TEMP 97.2
--- NOTE | 2024-05-07 07:58 | XR ---
EXAMINATION TYPE: XR chest 2V DATE OF EXAM: 05/07/2024 6:59 AM COMPARISON: None. CLINICAL INDICATION: Male, 58 years old with history of Lead placement check, short of breath TECHNIQUE: XR chest 2V view(s) obtained. FINDINGS: The heart size is normal. Pacemaker overlies left chest. Leads appear in a typical orientation. No p neumothorax evident. The pulmonary vasculature is upper limits of normal. Infiltrates have some improvement. Pacemaker overlies left chest. IMPRESSION: 1. Consider resolving pulmonary edema and vascular overload [facility], , 05/07/2024 7:55 AM
--- NOTE | 2024-05-07 08:13 | P.DS ---
Providers Attending physician: Derik Vaughan Primary care physician: [facility] Course: Patient is resting comfortably in bed No chest discomfort dizziness lightheadedness Mild tenderness over the BiV ICD site Blood pressure is mildly elevated Heart sounds are normal Impression Severe ischemic cardiomyopathy Intermittent heart block Upgrade of the single-chamber ICD to a biventricular ICD for management of heart failure, chronic systolic class II-III and intermittent heart block Standard dual-chamber ICD will result in a very high RV pacing percentage greater than 50% risking further worsening of heart failure status 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 Bundle branch reentry recurred after right bundle branch block ablation on account of his dense scar and inability to create a durable RF lesion in the long run despite early acute success Hence a left bundle pacemaker lead was not implanted LV lead and lateral vein in excellent position good thresholds Simultaneous LV RV pacing with an AV delay of 170 ms. Patient has a prolonged IN interval at baseline Plan Discharge home today Continue home medications As an outpatient we will try increasing the dose of carvedilol further Plan - Discharge Summary Discharge Rx Participant: No New Discharge Prescriptions: Continue Clopidogrel [Plavix] 75 mg PO DAILY Pantoprazole [Protonix] 40 mg PO DAILY sitaGLIPtin PHOS/metFORMIN HCL [Janumet 50-1,000 mg Tablet] 1 tab PO BID Insulin Glargine,Hum.rec.anlog [Susanna Murphy] 45 units SQ DAILY Atorvastatin [Lipitor] 40 mg PO DAILY ALPRAZolam [Xanax] 0.5 mg PO HS Magnesium Oxide [Mag-Ox] 400 mg PO DAILY #90 tab Aspirin EC [Ecotrin Low Dose] 81 mg PO DAILY Empagliflozin [Jardiance] 25 mg PO DAILY Spironolactone 25 mg PO DIRECTED carvediloL [Coreg*] 6.5 mg PO BID-W/MEALS Sacubitril/Valsartan [Entresto 49 mg-51 mg Tablet] 1 each PO BID Sotalol [Betapace] 20 mg PO BID Discharge Medication List Clopidogrel [Plavix] 75 mg PO DAILY 07/06/14 [History] Pantoprazole [Protonix] 40 mg PO DAILY 04/30/15 [History] Atorvastatin [Lipitor] 40 mg PO DAILY 05/11/19 [History] Insulin Glargine,Hum.rec.anlog [Toudesireeo Solostar] 45 units SQ DAILY 05/11/19 [ History] sitaGLIPtin PHOS/metFORMIN HCL [Janumet 50-1,000 mg Tablet] 1 tab PO BID 05/11/19 [History] ALPRAZolam [Xanax] 0.5 mg PO HS 02/10/22 [History] Magnesium Oxide [Mag-Ox] 400 mg PO DAILY #90 tab 02/12/22 [Rx] Aspirin EC [Ecotrin Low Dose] 81 mg PO DAILY 05/26/23 [History] Sacubitril/Valsartan [Entresto 49 mg-51 mg Tablet] 1 each PO BID 05/26/23 [History] Empagliflozin [Jardiance] 25 mg PO DAILY 12/09/23 [History] Spironolactone 25 mg PO DIRECTED 12/09/23 [History] Sotalol [Betapace] 20 mg PO BID 05/05/24 [History] carvediloL [Coreg*] 6.5 mg PO BID-W/MEALS 05/05/24 [History] Follow up Appointment(s)/Referral(s): Derik Vaughan MD [STAFF PHYSICIAN] - 05/14/24 3:00 pm (FOLLOW UP APPOINTMENT WITH THE [facility]. ) Activity/Diet/Wound Care/Special Instructions: PATIENT EDUCATION MATERIAL Instructions following a heart rhythm device implant. 1. Keep dressing DRY for 5 DAYS. You may cover the area with Saran or Cling W rap, prior to a shower. 2. The dressing will be removed in the [facility] at [facility]. Absorbable sutures were used to close the wound. 3. Avoid raising the left arm above the shoulder level. 4 week restriction 4. Avoid arm movements, like backscratching, rubbing the head, or pulling on a cord. 4 weeks restriction 5. Gentle range of motion movements of the shoulder, closest to the incision should be performed to avoid a frozen shoulder. (Pendulum exercises of the shoulder) 6. The opposite arm may be used freely. 7. Avoid driving for 7 days. 8. Avoid activities such as golfing, swimming, weed whacking, lifting more than 10 pounds weight, bowling, gymnastics and weight training/lifting. (6 weeks restriction) 9. Activities such as wood chopping with an axe, pull-ups in the gymnasium, power lifting, arc-welding, being close to home induction cooktops will always be a problem. 10. Arm sling is only a reminder not to raise the arm above the head. You do not need to keep the arm completely immobilized. Your free to move the arm and use it and for normal activities. In case of any problems, please call [facility], [place], @ [phone], Attention: Device Clinic Device clinic follow-up in 5 days Follow-up with primary bread wrapper operator in 2-3 months Discharge Disposition: HOME SELF-CARE
[2024-05-07] MEDS: ATORVASTATIN 40 MG TAB PO SCH (08:57)
[2024-05-07] MEDS: ASPIRIN 81 MG PO SCH (08:58)
[2024-05-07] MEDS ORDERED: SPIRONOLACTONE 25 MG TAB PO PRN (09:00)
[2024-05-07] MEDS: PANTOPRAZOLE 40 MG TABLET PO SCH (09:00)
[2024-05-07] MEDS ORDERED: CLOPIDOGREL 75 MG TAB PO SCH (09:00)
[2024-05-07] MEDS: MAGNESIUM OXIDE 400 MG TAB PO SCH (09:00)
[2024-05-07] MEDS: LINAGLIPTIN 5 MG TABLET PO SCH (09:22)
[2024-05-07] MEDS: DAPAGLIFLOZIN PROPANEDIOL 10 MG TABLET PO SCH (09:22)
[2024-05-07] MEDS: INSULIN DETEMIR (LEVEMIR) 100 UNIT/ML SYR SQ SCH (09:22)
[2024-05-08] MEDS ORDERED: metFORMIN 500 MG TAB PO SCH (21:00)
== END 2024-05-07 11:05 | disposition home or self-care (01) ==
LOC: CATHEP 08:51 → 6NMEDSUR 14:04 → CATHEP 05-07 11:05
PROVIDERS: ATTEND Internal Medicine Clinical Cardiac Electrophysiology
DX: I25.5 Ischemic cardiomyopathy (principal); I25.2 Old myocardial infarction; I25.10 Atherosclerotic heart disease of native coronary artery without angina pectoris; I45.10 Unspecified right bundle-branch block; I50.22 Chronic systolic (congestive) heart failure; Z79.02 Long term (current) use of antithrombotics/antiplatelets; Z79.82 Long term (current) use of aspirin; Z79.84 Long term (current) use of oral hypoglycemic drugs; Z79.899 Other long term (current) drug therapy; Z98.890 Other specified postprocedural states
CPT/HCPCS: 33225; 33249; 33241; 80048; 84443; 85025; 71046; C1769 ×4; C1894; C1760; C1882; C1898; C1892 ×2; C1730 ×2; C1887; C1900; J3370; J1644; J0690; J2003; J2795; J0131; Q9967